=== PATIENT | female | born 1930 | race Caucasian/White ===

== ENCOUNTER 2016-06-18 10:10 | Emergency (ER) | payer MEDICARE, BC ==
[2016-06-18 10:30] VITALS: RESP 18
[2016-06-18] MEDS ORDERED: SODIUM CHLORIDE 0.9% 1,000 ML IV STA (10:31)
--- NOTE | 2016-06-18 10:33 | ED ---
General Adult HPI - General Chief complaint: Syncope Stated complaint: Syncope Time Seen by Provider: 06/18/16 10:20 Source: patient, RN notes reviewed Mode of arrival: EMS Limitations: no limitations - History of Present Illness Initial comments: This is an 86-year-old female who presents emergency department after having a syncopal episode. Patient was at the doctor's office this morning to get blood drawn so she was fasting. Patient states she normally eats breakfast at about 4 and but today she did not have breakfast. After the doctor's office and having some blood drawn and a flu shot she went shopping at [facility]. At [facility] ( feel dizzy since she stepped on a bench and then according to staff at [place] she passed out. According to staff she was unconscious for probably about 5 minutes. Patient states when she awoke she was asymptomatic she has no headache she denies any numbness weakness. Patient denies any chest pain palpitations difficulty breathing or shortness of breath per patient denies abdominal pain patient denies nausea vomiting diarrhea. Patient states she should just go home and had something to eat before she went shopping. - Related Data Home Medications Medication Instructions Recorded Confirmed Aspirin EC [Ecotrin Low Dose] 81 mg PO DAILY 11/26/13 06/18/16 Multivitamins, Thera [Multivitamin] 1 tab PO DAILY 11/26/13 06/18/16 ALPRAZolam [Xanax] 0.25 mg PO DAILY PRN 09/13/14 06/18/16 Isosorbide Mononitrate ER [Imdur] 30 mg PO DAILY 09/13/14 06/18/16 Losartan [Cozaar] 50 mg PO BID@1200,1900 09/13/14 06/18/16 Lovastatin [Mevacor] 10 mg PO QAM 09/13/14 06/18/16 Acetaminophen Tab [Tylenol Tab] 325 - 650 mg PO Q6H PRN 06/18/16 06/18/16 Clotrimazole Cream [Clotrim 1 applic TOPICAL DAILY 06/18/16 06/18/16 Antifungal Cream] Docusate [Colace] 100 mg PO DAILY 06/18/16 06/18/16 L.acidoph,Paracasei, B.lactis 1 cap PO DAILY 06/18/16 06/18/16 [Probiotic] Nitroglycerin Oint Tube [Nitro-Bid 1 inch TOPICAL DAILY PRN 06/18/16 06/18/16 Oint Tube] Nitroglycerin Sl Tabs [Nitrostat] 0.4 mg SUBLINGUAL Q5M PRN 06/18/16 06/18/16 [place]-3 Fatty Acids [[place]-3] 1,000 mg PO DAILY 06/18/16 06/18/16 Psyllium Husk [Psyllium] 1.2 gm PO QAM 06/18/16 06/18/16 Ubidecarenone [Co Q-10] 200 mg PO DAILY 06/18/16 06/18/16 Warfarin [Coumadin] 2.5 mg PO CIFUENTES 06/18/16 06/18/16 Warfarin [Coumadin] 5 mg PO [id number] 06/18/16 06/18/16 amLODIPine [Norvasc] 2.5 mg PO BID 06/18/16 06/18/16 Previous Rx's Medication Instructions Recorded Metoprolol Tartrate [Lopressor] 100 mg PO BID #20 tab 09/19/14 Sulfamethox-Tmp 800-160Mg [Bactrim 1 each PO Q12HR #14 tab 06/18/16 DS 800-160 mg] Allergies Allergy/AdvReac Type Severity Reaction Status Date / Time ciprofloxacin [From [facility]] Allergy Unknown Verified 06/18/16 10:34 amiodarone AdvReac VISION Verified 06/18/16 10:34 CHANGES nitroglycerin AdvReac Chest Pain Verified 06/18/16 10:29 Review of Systems ROS Statement: Those systems with pertinent positive or pertinent negative responses have been documented in the HPI. ROS Other: All systems not noted in ROS Statement are negative. Past Medical History Past Medical History: Atrial Fibrillation, Hypertension Additional Past Medical History / Comment(s): 09/13/14 Pt presented to [facility] ER with c/o heart rate fast. Pt states she has hx of LBBB and heart rate is normally in the 50's. She noted her B/P to be elevated as well. Other HX: tia,syncopy and fall 11/26/13 which pt states was due to low blood pressure, SVT , cataracts with surgery, diverticulitis, cystocele, rectocele, pt states "my aortic heart valve isn't sufficient and I have a left bundle branch block", R shoulder tendon tear, hyponatremia, elevated random blood sugar. History of Any Multi-Drug Resistant Organisms: None Reported Past Surgical History: Hysterectomy, Pacemaker, Tonsillectomy Additional Past Surgical History / Comment(s): colonoscopy, bilateral cataract removal with lens implants. Past Anesthesia/Blood Transfusion Reactions: No Reported Reaction Additional Past Anesthesia/Blood Transfusion Reaction / Comment(s): Pt has never recieved blood. Past Psychological History: No Psychological Hx Reported Additional Psychological History / Comment(s): Pt lives alone in a condo. She is independent. She performs her own ADLs and drives a car. She does not use any assisstive devices and no home care agencies come into the home. Smoking Status: Never smoker Past Alcohol Use History: None Reported Past Drug Use History: None Reported - Past Family History Father Family Medical History: Cancer Additional Family Medical History / Comment(s): Father at age 89yrs of prostate cancer that went to the bone. Mother Family Medical History: Hypertension Additional Family Medical History / Comment(s): Mother lived to be 84 yrs old. General Exam - General Exam Comments Initial Comments: GENERAL: Patient is well-developed and well-nourished. Patient is nontoxic and well- hydrated and is in no acute distress. ENT: Neck is soft and supple. No significant lymphadenopathy is noted. Oropharynx is clear. Moist mucous membranes. Neck has full range of motion without eliciting any pain. EYES: The sclera were anicteric and conjunctiva were pink and moist. Extraocular movements were intact and pupils were equal round and reactive to light. Eyelids were unremarkable. PULMONARY: Unlabored respirations. Good breath sounds bilaterally. No audible rales rhonchi or wheezing was noted. CARDIOVASCULAR: There is a regular rate and rhythm without any murmurs gallops or rubs. ABDOMEN: Soft and nontender with normal bowel sounds. No palpable organomegaly was noted. There is no palpable pulsatile mass. SKIN: Skin is clear with no lesions or rashes and otherwise unremarkable. NEUROLOGIC: Patient is alert and oriented x3. Cranial nerves II through XII are grossly intact. Motor and sensory are also intact. Normal speech, volume and content. Symmetrical smile. MUSCULOSKELETAL: Normal extremities with adequate strength and full range of motion. No lower extremity swelling or edema. No calf tenderness. LYMPHATICS: No significant lymphadenopathy is noted PSYCHIATRIC: Normal psychiatric evaluation. Limitations: no limitations Course Vital Signs 06/18/16 06/18/16 06/18/16 10:15 10:22 11:44 Pulse Rate 52 L Pulse Rate [ 49 L 59 L [employer] ] Respiratory 18 Rate Blood Pressure 167/89 Blood Pressure 200/88 [Right Arm] O2 Sat by Pulse 98 Oximetry 06/18/16 06/18/16 06/18/16 11:45 11:48 12:22 Pulse Rate 56 L 66 Pulse Rate [ 62 [employer] ] Respiratory 18 18 Rate Blood Pressure 191/92 159/80 Blood Pressure 186/101 [Right Arm] O2 Sat by Pulse 100 100 Oximetry Medical Decision Making - Medical Decision Making EKG shows paced rhythm at 50 bpm. It was 220 QRS is 144 QT interval 494 QTC is 450. Patient's EKG shows no ST segment elevation or depression or T-wave abdomen is noted. I went back into the patient's room and recommended the patient be admitted patient did not want to be admitted she stated she be fine at home and her son is with her. I recommended a second time and she insisted on going home. - Lab Data Result diagrams: 06/18/16 10:37 06/18/16 10:37 Lab Results 06/18/16 06/18/16 06/18/16 Range/Units 10:37 10:37 10:37 WBC 8.5 (3.8-10.6) k/uL RBC 4.20 (3.80-5.40) m/uL Hgb 13.6 (11.4-16.0) gm/dL Hct 41.6 (34.0-46.0) % MCV 99.1 (80.0-100.0) fL MCH 32.4 (25.0-35.0) pg MCHC 32.7 (31.0-37.0) g/dL RDW 12.5 (11.5-15.5) % Plt Count 313 (150-450) k/uL Neutrophils % 75 % Lymphocytes % 17 % Monocytes % 5 % Eosinophils % 2 % Basophils % 0 % Neutrophils # 6.3 (1.3-7.7) k/uL Lymphocytes # 1.4 (1.0-4.8) k/uL Monocytes # 0.4 (0-1.0) k/uL Eosinophils # 0.1 (0-0.7) k/uL Basophils # 0.0 (0-0.2) k/uL PT (9.0-12.0) sec INR (<1.1) APTT (22.0-30.0) sec Sodium 140 (137-145) mmol/L Potassium 4.4 (3.5-5.1) mmol/L Chloride 103 (98-107) mmol/L Carbon Dioxide 25 (22-30) mmol/L Anion Gap 12 mmol/L BUN 11 (7-17) mg/dL Creatinine 0.65 (0.52-1.04) mg/dL Est GFR (MDRD) Af Amer >60 (>60 ml/min/1.73 sqM) Est GFR (MDRD) Non-Af >60 (>60 ml/min/1.73 sqM) Glucose 117 H (74-99) mg/dL Calcium 8.7 (8.4-10.2) mg/dL Magnesium 2.0 (1.6-2.3) mg/dL Total Bilirubin 0.8 (0.2-1.3) mg/dL AST 22 (14-36) U/L ALT 38 (9-52) U/L Alkaline Phosphatase 77 (38-126) U/L Total Creatine Kinase 31 (30-135) U/L CK-MB (CK-2) 0.3 (0.0-2.4) ng/mL CK-MB (CK-2) Rel Index 1.0 Troponin I <0.012 (0.000-0.034) ng/mL Total Protein 6.7 (6.3-8.2) g/dL Albumin 3.7 (3.5-5.0) g/dL Urine Color Urine Appearance (Clear) Urine pH (5.0-8.0) Ur Specific [place] (1.001-1.035) Urine Protein (Negative) Urine Glucose (UA) (Negative) Urine Ketones (Negative) Urine Blood (Negative) Urine Nitrate (Negative) Urine Bilirubin (Negative) Urine Urobilinogen (<2.0) mg/dL Ur Leukocyte Esterase (Negative) Urine RBC (0-5) /hpf Urine WBC (0-5) /hpf Ur Squamous Epith Cells (0-4) /hpf Hyaline Casts (0-2) /lpf Urine Mucus (None) /hpf 01/03/17 01/03/17 Range/Units 10:37 11:45 WBC (3.8-10.6) k/uL RBC (3.80-5.40) m/uL Hgb (11.4-16.0) gm/dL Hct (34.0-46.0) % MCV (80.0-100.0) fL MCH (25.0-35.0) pg MCHC (31.0-37.0) g/dL RDW (11.5-15.5) % Plt Count (150-450) k/uL Neutrophils % % Lymphocytes % % Monocytes % % Eosinophils % % Basophils % % Neutrophils # (1.3-7.7) k/uL Lymphocytes # (1.0-4.8) k/uL Monocytes # (0-1.0) k/uL Eosinophils # (0-0.7) k/uL Basophils # (0-0.2) k/uL PT 22.5 H (9.0-12.0) sec INR 2.3 (<1.1) APTT 31.8 H (22.0-30.0) sec Sodium (137-145) mmol/L Potassium (3.5-5.1) mmol/L Chloride (98-107) mmol/L Carbon Dioxide (22-30) mmol/L Anion Gap mmol/L BUN (7-17) mg/dL Creatinine (0.52-1.04) mg/dL Est GFR (MDRD) Af Amer (>60 ml/min/1.73 sqM) Est GFR (MDRD) Non-Af (>60 ml/min/1.73 sqM) Glucose (74-99) mg/dL Calcium (8.4-10.2) mg/dL Magnesium (1.6-2.3) mg/dL Total Bilirubin (0.2-1.3) mg/dL AST (14-36) U/L ALT (9-52) U/L Alkaline Phosphatase (38-126) U/L Total Creatine Kinase (30-135) U/L CK-MB (CK-2) (0.0-2.4) ng/mL CK-MB (CK-2) Rel Index Troponin I (0.000-0.034) ng/mL Total Protein (6.3-8.2) g/dL Albumin (3.5-5.0) g/dL Urine Color Light Yellow Urine Appearance Clear (Clear) Urine pH 7.5 (5.0-8.0) Ur Specific [place] 1.006 (1.001-1.035) Urine Protein Negative (Negative) Urine Glucose (UA) Negative (Negative) Urine Ketones Negative (Negative) Urine Blood Negative (Negative) Urine Nitrate Negative (Negative) Urine Bilirubin Negative (Negative) Urine Urobilinogen <2.0 (<2.0) mg/dL Ur Leukocyte Esterase Large H (Negative) Urine RBC 3 (0-5) /hpf Urine WBC 12 H (0-5) /hpf Ur Squamous Epith Cells 1 (0-4) /hpf Hyaline Casts 4 H (0-2) /lpf Urine Mucus Rare H (None) /hpf Disposition Clinical Impression: Syncope, Urinary tract infection Disposition: HOME SELF-CARE Condition: Good Instructions: Urinary Tract Infection in Women (ED), Syncope (ED) Prescriptions: Sulfamethox-Tmp 800-160Mg [Bactrim DS 800-160 mg] 1 each PO Q12HR #14 tab Referrals: Mitchell Davalos MD [Primary Care Provider] - 1-2 days Time of Disposition: 12:52
[2016-06-18 11:07] LABS: Basophils % (A) 0 %; CH 32.5; CHCM 32.9; Eosinophils # (A) 0.1 k/uL (0-0.7); Eosinophils % (A) 2 %; HCT 41.6 % (34.0-46.0); HDW 2.25; HGB 13.6 gm/dL (11.4-16.0); Luc # (Auto) 0.13; Luc % (Auto) 2; Lymphocytes # (A) 1.4 k/uL (1.0-4.8); Lymphocytes % (A) 17 %; MCH 32.4 pg (25.0-35.0); MCHC 32.7 g/dL (31.0-37.0); MCV 99.1 fL (80.0-100.0); Mean Platelet Volume 6.3; Monocytes # (A) 0.4 k/uL (0-1.0); Monocytes % (A) 5 %; Neutrophils # (A) 6.3 k/uL (1.3-7.7); Neutrophils % (A) 75 %; RDW 12.5 % (11.5-15.5); WBC 8.5 k/uL (3.8-10.6); WBC (Perox) 8.86
[2016-06-18 11:11] LABS: INR 2.3 (<1.1); Partial Thromboplastin Time 31.8 sec (22.0-30.0); Prothrombin Time 22.5 sec (9.0-12.0)
[2016-06-18 11:16] LABS: ALT 38 U/L (9-52); AST 22 U/L (14-36); Alkaline Phosphatase 77 U/L (38-126); Anion Gap 12 mmol/L; Blood Urea Nitrogen 11 mg/dL (7-17); Calcium 8.7 mg/dL (8.4-10.2); Carbon Dioxide 25 mmol/L (22-30); Chloride 103 mmol/L (98-107); Glucose 117 mg/dL (74-99); Non-African American GFR(MDRD) >60 (>60 ml/min/1.73 sqM); Potassium 4.4 mmol/L (3.5-5.1); Sodium 140 mmol/L (137-145); Total Bilirubin 0.8 mg/dL (0.2-1.3); Total Protein 6.7 g/dL (6.3-8.2)
--- NOTE | 2016-06-18 11:23 | XR ---
EXAMINATION TYPE: XR chest 2V DATE OF EXAM: 06/18/2016 11:12 AM COMPARISON: 09/19/2014 HISTORY: Weakness FINDINGS: The lungs are clear and there is no pneumothorax, pleural effusion, or focal pneumonia. Degenerativ e change of the spine. Mild compression deformity lower thoracic spine is stable. Cardiac device and severe cardiomegaly noted. Correlate for COPD. Use osteopenia noted. Biapical pleural thickening noted. IMPRESSION: 1. No acute process.
[2016-06-18 11:41] LABS: Creatine Kinase 31 U/L (30-135)
[2016-06-18 11:54] LABS: Creatine Kinase MB 0.3 ng/mL (0.0-2.4); Troponin I <0.012 ng/mL (0.000-0.034)
[2016-06-18 12:18] LABS: Appearance,Urine Clear (Clear); Bilirubin,Urine Negative (Negative); Glucose,Urine (UA) Negative (Negative); Ketones,Urine Negative (Negative); Leukocyte Esterase,Urine Large (Negative); Mucus,Urine Rare /hpf; Nitrite,Urine Negative (Negative); PH, Urine 7.5 (5.0-8.0); Particle Count 1972; Protein,Urine Negative (Negative); RBC,Urine 3 /hpf (0-5); Specific Gravity,Urine 1.006 (1.001-1.035); Squamous Epithelial Cell,Urine 1 /hpf (0-4); UA Billing (MACRO vs. MICRO) MICRO; Urobilinogen,Urine <2.0 mg/dL (<2.0); WBC,Urine 12 /hpf (0-5)
[2016-06-18 12:23] VITALS: BP 159/80
[2016-06-18 13:26] VITALS: PULSE 57; TEMP 97.5
== END 2016-06-18 13:34 | disposition home or self-care (01) ==
LOC: EC 10:10
DX: R55 Syncope and collapse (principal); N39.0 Urinary tract infection, site not specified; Z79.82 Long term (current) use of aspirin; Z79.899 Other long term (current) drug therapy; Z79.01 Long term (current) use of anticoagulants; Z88.1 Allergy status to other antibiotic agents; Z88.8 Allergy status to other drugs, medicaments and biological substances; I10 Essential (primary) hypertension; I48.91 Unspecified atrial fibrillation; Z95.0 Presence of cardiac pacemaker
CPT/HCPCS: 96365; 96361 ×2; 99285; 36415; 93005; 80053; 82550; 82553; 83735; 84484; 85025; 85610; 85730; 81001; 87086; 71020; J0696

== ENCOUNTER 2016-09-24 20:16 | Emergency (ER) | payer MEDICARE, BC ==
--- NOTE | 2016-09-24 20:28 | ED ---
General Adult HPI - General Stated complaint: Hypertension Time Seen by Provider: 09/24/16 20:16 Source: patient, EMS, RN notes reviewed Mode of arrival: EMS - History of Present Illness Initial comments: This is a 86-year-old female who presents by EMS with complaints of elevated blood pressure today. She states she's been having back pain in her mid back and doesn't fact were a brace. She states she was told the back which healed by itself. She is on blood pressure medication she was taking her medications tonight and afterwards she still had elevated blood pressure 190/120 normally she states about 140/70 is where she likes it the last time she saw her applier was 180/100. She denies any fevers chills nausea vomiting sweats blurry vision difficulty breathing abdominal pain she does state however she had narrow caliber stool today. No dysuria hematuria. - Related Data Home Medications Medication Instructions Recorded Confirmed Aspirin EC [Ecotrin Low Dose] 81 mg PO DAILY 11/26/13 09/24/16 Multivitamins, Thera [Multivitamin 1 tab PO DAILY 11/26/13 09/24/16 (formulary)] ALPRAZolam [Xanax] 0.25 mg PO DAILY PRN 09/13/14 09/24/16 Isosorbide Mononitrate ER [Imdur] 30 mg PO DAILY 09/13/14 09/24/16 Losartan [Cozaar] 50 mg PO BID@1200,1900 09/13/14 09/24/16 Lovastatin [Mevacor] 10 mg PO QAM 09/13/14 09/24/16 Acetaminophen Tab [Tylenol Tab] 325 - 650 mg PO Q6H PRN 06/18/16 09/24/16 Clotrimazole Cream [Clotrim 1 applic TOPICAL DAILY 06/18/16 09/24/16 Antifungal Cream] Docusate [Colace] 100 mg PO DAILY 06/18/16 09/24/16 L.acidoph,Paracasei, B.lactis 1 cap PO DAILY 06/18/16 09/24/16 [Probiotic] Nitroglycerin Oint Tube [Nitro-Bid 1 inch TOPICAL DAILY PRN 06/18/16 09/24/16 Oint Tube] Nitroglycerin Sl Tabs [Nitrostat] 0.4 mg SUBLINGUAL Q5M PRN 06/18/16 09/24/16 [place]-3 Fatty Acids [[place]-3] 1,000 mg PO DAILY 06/18/16 09/24/16 Psyllium Husk [Psyllium] 1.2 gm PO QAM 06/18/16 09/24/16 Ubidecarenone [Co Q-10] 200 mg PO DAILY 06/18/16 09/24/16 Warfarin [Coumadin] 5 mg PO DAILY 06/18/16 09/24/16 amLODIPine [Norvasc] 2.5 mg PO BID 06/18/16 09/24/16 Previous Rx's Medication Instructions Recorded Metoprolol Tartrate [Lopressor] 100 mg PO BID #20 tab 09/19/14 Allergies Allergy/AdvReac Type Severity Reaction Status Date / Time ciprofloxacin [From [facility]] Allergy Unknown Verified 09/24/16 21:14 amiodarone AdvReac VISION Verified 09/24/16 21:14 CHANGES nitroglycerin AdvReac Chest Pain Verified 09/24/16 21:14 Review of Systems ROS Statement: Those systems with pertinent positive or pertinent negative responses have been documented in the HPI. ROS Other: All systems not noted in ROS Statement are negative. Past Medical History Past Medical History: Atrial Fibrillation, Hypertension Additional Past Medical History / Comment(s): 09/13/14 Pt presented to [facility] ER with c/o heart rate fast. Pt states she has hx of LBBB and heart rate is normally in the 50's. She noted her B/P to be elevated as well. Other HX: tia,syncopy and fall 11/26/13 which pt states was due to low blood pressure, SVT , cataracts with surgery, diverticulitis, cystocele, rectocele, pt states "my aortic heart valve isn't sufficient and I have a left bundle branch block", R shoulder tendon tear, hyponatremia, elevated random blood sugar. History of Any Multi-Drug Resistant Organisms: None Reported Past Surgical History: Hysterectomy, Pacemaker, Tonsillectomy Additional Past Surgical History / Comment(s): colonoscopy, bilateral cataract removal with lens implants. Past Anesthesia/Blood Transfusion Reactions: No Reported Reaction Additional Past Anesthesia/Blood Transfusion Reaction / Comment(s): Pt has never recieved blood. Past Psychological History: No Psychological Hx Reported Additional Psychological History / Comment(s): Pt lives alone in a condo. She is independent. She performs her own ADLs and drives a car. She does not use any assisstive devices and no home care agencies come into the home. Smoking Status: Never smoker Past Alcohol Use History: None Reported Past Drug Use History: None Reported - Past Family History Father Family Medical History: Cancer Additional Family Medical History / Comment(s): Father at age 89yrs of prostate cancer that went to the bone. Mother Family Medical History: Hypertension Additional Family Medical History / Comment(s): Mother lived to be 84 yrs old. General Exam - General Exam Comments Initial Comments: Is a well-developed well-nourished awake alert oriented 3 female Limitations: no limitations General appearance: alert, anxious Head exam: Present: atraumatic, normocephalic, normal inspection Eye exam: Present: normal appearance, PERRL, EOMI. Absent: scleral icterus, conjunctival injection, periorbital swelling ENT exam: Present: mucous membranes dry Neck exam: Present: normal inspection. Absent: tenderness, meningismus, lymphadenopathy Respiratory exam: Present: normal lung sounds bilaterally. Absent: respiratory distress, wheezes, rales, rhonchi, stridor Cardiovascular Exam: Present: regular rate, normal rhythm, normal heart sounds. Absent: systolic murmur, diastolic murmur, rubs, gallop, clicks GI/Abdominal exam: Present: soft, normal bowel sounds. Absent: distended, tenderness, guarding, rebound, rigid, bruit, pulsatile mass, hernia Rectal exam: Present: deferred Extremities exam: Present: normal inspection, full ROM, normal capillary refill. Absent: tenderness, pedal edema, joint swelling, calf tenderness Back exam: Present: other (The patient does demonstrate kyphosis and does have some tenderness palpation of the right paraspinous muscles to the lower thoracic upper lumbar region.) Neurological exam: Present: alert, oriented X3, CN II-XII intact Psychiatric exam: Present: normal affect, normal mood Skin exam: Present: warm, dry, intact, normal color. Absent: rash Course Vital Signs 09/24/16 09/24/16 20:23 21:26 Temperature 97.9 F Pulse Rate 68 61 Respiratory 16 18 Rate Blood Pressure 171/91 150/85 O2 Sat by Pulse 94 L 95 Oximetry EKG Findings - EKG Results: EKG: interpreted by ERMD, sinus rhythm (Sinus rhythm with a rate of 62. Interval 178 QRS duration 148 QT/QTC of 456/462 that exodeviation live bundle- branch block no acute ST-T wave changes) Medical Decision Making - Medical Decision Making The patient's blood pressure has normalized closer to her baseline. I did a long discussion with her regarding findings the workup does demonstrate some dehydration she is to follow-up with her doctor return when necessary increase oral fluids I did caution her to just take 1 time a day do her blood pressure check. - Lab Data Result diagrams: 09/24/16 20:35 09/24/16 20:35 Lab Results 09/24/16 09/24/16 09/24/16 Range/Units 20:35 20:35 20:35 WBC 10.9 H (3.8-10.6) k/uL RBC 4.16 (3.80-5.40) m/uL Hgb 13.5 (11.4-16.0) gm/dL Hct 40.4 (34.0-46.0) % MCV 97.1 (80.0-100.0) fL MCH 32.5 (25.0-35.0) pg MCHC 33.4 (31.0-37.0) g/dL RDW 13.1 (11.5-15.5) % Plt Count 308 (150-450) k/uL Neutrophils % 77 % Lymphocytes % 15 % Monocytes % 5 % Eosinophils % 1 % Basophils % 1 % Neutrophils # 8.4 H (1.3-7.7) k/uL Lymphocytes # 1.6 (1.0-4.8) k/uL Monocytes # 0.6 (0-1.0) k/uL Eosinophils # 0.1 (0-0.7) k/uL Basophils # 0.1 (0-0.2) k/uL Sodium 131 L (137-145) mmol/L Potassium 3.8 (3.5-5.1) mmol/L Chloride 97 L (98-107) mmol/L Carbon Dioxide 25 (22-30) mmol/L Anion Gap 9 mmol/L BUN 15 (7-17) mg/dL Creatinine 0.60 (0.52-1.04) mg/dL Est GFR (MDRD) Af Amer >60 (>60 ml/min/1.73 sqM) Est GFR (MDRD) Non-Af >60 (>60 ml/min/1.73 sqM) Glucose 114 H (74-99) mg/dL Calcium 9.0 (8.4-10.2) mg/dL Magnesium 2.1 (1.6-2.3) mg/dL Total Bilirubin 0.6 (0.2-1.3) mg/dL AST 25 (14-36) U/L ALT 29 (9-52) U/L Alkaline Phosphatase 91 (38-126) U/L Total Creatine Kinase 32 (30-135) U/L CK-MB (CK-2) 0.4 (0.0-2.4) ng/mL CK-MB (CK-2) Rel Index 1.3 Total Protein 6.8 (6.3-8.2) g/dL Albumin 3.7 (3.5-5.0) g/dL - Radiology Data Radiology results: report reviewed (Did review the imaging and report no acute findings.), image reviewed Disposition Clinical Impression: Hypertension, Dehydration, Chronic back pain Disposition: HOME SELF-CARE Condition: Good Instructions: Hypertension (ED), Dehydration (ED), Chronic Back Pain (ED)
[2016-09-24 20:29] VITALS: TEMP 97.9
[2016-09-24 20:56] LABS: Basophils # (A) 0.1 k/uL (0-0.2); Basophils % (A) 1 %; CH 32.6; CHCM 33.7; Eosinophils # (A) 0.1 k/uL (0-0.7); Eosinophils % (A) 1 %; HCT 40.4 % (34.0-46.0); HDW 2.15; HGB 13.5 gm/dL (11.4-16.0); Luc # (Auto) 0.18; Luc % (Auto) 2; Lymphocytes # (A) 1.6 k/uL (1.0-4.8); Lymphocytes % (A) 15 %; MCH 32.5 pg (25.0-35.0); MCHC 33.4 g/dL (31.0-37.0); MCV 97.1 fL (80.0-100.0); Mean Platelet Volume 6.6; Monocytes # (A) 0.6 k/uL (0-1.0); Monocytes % (A) 5 %; Neutrophils # (A) 8.4 k/uL (1.3-7.7); Neutrophils % (A) 77 %; RBC 4.16 m/uL (3.80-5.40); RDW 13.1 % (11.5-15.5); WBC 10.9 k/uL (3.8-10.6); WBC (Perox) 10.61
[2016-09-24 21:10] LABS: ALT 29 U/L (9-52); AST 25 U/L (14-36); Alkaline Phosphatase 91 U/L (38-126); Anion Gap 9 mmol/L; Blood Urea Nitrogen 15 mg/dL (7-17); Carbon Dioxide 25 mmol/L (22-30); Chloride 97 mmol/L (98-107); Glucose 114 mg/dL (74-99); Magnesium 2.1 mg/dL (1.6-2.3); Non-African American GFR(MDRD) >60 (>60 ml/min/1.73 sqM); Potassium 3.8 mmol/L (3.5-5.1); Sodium 131 mmol/L (137-145); Total Bilirubin 0.6 mg/dL (0.2-1.3); Total Protein 6.8 g/dL (6.3-8.2)
--- NOTE | 2016-09-24 21:15 | XR ---
EXAMINATION TYPE: XR chest 2V DATE OF EXAM: 09/24/2016 8:55 PM COMPARISON: June 18, 2016 HISTORY: Hypertension with atrial fibrillation and cough TECHNIQUE: Frontal and lateral views of the chest are obtained. FINDINGS: EKG leads and cardiac pacemaker noted. There is no focal air space opacity, pleural effusi on, or pneumothorax seen. The cardiac silhouette size is within normal limits. The osseous structu res are intact. IMPRESSION: No acute cardiopulmonary process.
[2016-09-24 21:26] VITALS: RESP 18
[2016-09-24 21:32] LABS: Creatine Kinase MB 0.4 ng/mL (0.0-2.4)
[2016-09-24 22:29] VITALS: BP 153/88; PULSE 63
== END 2016-09-24 22:18 | disposition home or self-care (01) ==
LOC: EC 20:16
DX: I10 Essential (primary) hypertension (principal); E86.0 Dehydration; M54.9 Dorsalgia, unspecified; G89.29 Other chronic pain; I48.91 Unspecified atrial fibrillation; Z79.82 Long term (current) use of aspirin; Z79.899 Other long term (current) drug therapy; Z79.01 Long term (current) use of anticoagulants; Z88.1 Allergy status to other antibiotic agents; Z88.8 Allergy status to other drugs, medicaments and biological substances
CPT/HCPCS: 36415; 71020; 80053; 82550; 82553; 83735; 85025; 93005; 99284

== ENCOUNTER → 2016-09-27 | Outpatient (CLI) | payer MEDICARE, BC ==
[2016-09-27 14:49] LABS: Basophils % (A) 0 %; CH 32.8; CHCM 32.5; Eosinophils # (A) 0.1 k/uL (0-0.7); Eosinophils % (A) 1 %; HCT 41.9 % (34.0-46.0); HDW 2.12; HGB 13.5 gm/dL (11.4-16.0); Luc # (Auto) 0.17; Luc % (Auto) 2; Lymphocytes # (A) 1.7 k/uL (1.0-4.8); Lymphocytes % (A) 20 %; MCH 32.7 pg (25.0-35.0); MCHC 32.3 g/dL (31.0-37.0); MCV 101.3 fL (80.0-100.0); Macrocytosis Slight; Mean Platelet Volume 6.9; Monocytes # (A) 0.5 k/uL (0-1.0); Monocytes % (A) 6 %; Neutrophils % (A) 70 %; RBC 4.14 m/uL (3.80-5.40); RDW 13.2 % (11.5-15.5); WBC 8.5 k/uL (3.8-10.6)
[2016-09-27 14:59] LABS: Anion Gap 11 mmol/L; Blood Urea Nitrogen 9 mg/dL (7-17); Calcium 9.3 mg/dL (8.4-10.2); Carbon Dioxide 25 mmol/L (22-30); Chloride 94 mmol/L (98-107); Glucose 131 mg/dL (74-99); Non-African American GFR(MDRD) >60 (>60 ml/min/1.73 sqM); Potassium 4.4 mmol/L (3.5-5.1); Sodium 130 mmol/L (137-145)
--- NOTE | 2016-09-27 14:59 | XR ---
EXAMINATION TYPE: XR thoracic spine 2V DATE OF EXAM ORDERED: 09/27/2016 2:53 PM HISTORY: M54.6 Pain in thoracic spine. COMPARISON: None. FINDINGS: The T9 vertebral body is wedged by approximately one third. The T11 vertebral body is wedg ed by approximately one half. Alignment remains normal. There is mild widening of the paraspinal stri pe on the left. The pedicles appear intact. The bones are generally osteopenic. IMPRESSION: FRAGILITY FRACTURES INVOLVING THE T9 AND T11 VERTEBRAL BODIES.
[2016-09-27 15:04] LABS: Appearance,Urine Clear (Clear); Bilirubin,Urine Negative (Negative); Glucose,Urine (UA) Negative (Negative); Ketones,Urine Trace (Negative); Leukocyte Esterase,Urine Moderate (Negative); Nitrite,Urine Negative (Negative); PH, Urine 6.5 (5.0-8.0); Particle Count 1396; Protein,Urine Negative (Negative); RBC,Urine 9 /hpf (0-5); Specific Gravity,Urine 1.006 (1.001-1.035); UA Billing (MACRO vs. MICRO) MICRO; Urobilinogen,Urine <2.0 mg/dL (<2.0); WBC,Urine 10 /hpf (0-5)
== END | disposition home or self-care (01) ==
LOC: LABWHC1 14:24
PROVIDERS: ATTEND Internal Medicine
DX: S22.079A Unspecified fracture of T9-T10 vertebra, initial encounter for closed fracture (principal); S22.089A Unspecified fracture of T11-T12 vertebra, initial encounter for closed fracture; I10 Essential (primary) hypertension; N39.0 Urinary tract infection, site not specified
CPT/HCPCS: 36415; 72070; 80048; 81001; 85025; 87086

== ENCOUNTER 2016-11-21 06:10 | Inpatient (IN) | payer MEDICARE, BC ==
--- NOTE | 2016-11-21 07:58 | ED ---
General Adult HPI - General Chief complaint: Syncope Stated complaint: Syncope Time Seen by Provider: 11/21/16 07:09 Source: patient, EMS, RN notes reviewed Mode of arrival: EMS Limitations: no limitations - History of Present Illness Initial comments: Patient is a pleasant 86-year-old female presenting to the emergency department after feeling near syncopal since 2 AM. Patient did have a syncopal episode last week. Patient did fall and strike her head. Patient believes she passed out before she struck her head. Patient has also been having some discomfort of her back since she passed out. Patient believes she hurt her back when she fell. Patient has discomfort only with movement. No discomfort at rest. Today when patient woke up at 2 AM to use the restroom she has felt lightheaded. Patient has nausea. Patient continues to feel near syncopal. No chest pain or dyspnea. Patient has history of known thoracic compression fracture she thinks 9 and 11. - Related Data Home Medications Medication Instructions Recorded Confirmed Aspirin EC [Ecotrin Low Dose] 81 mg PO DAILY 11/26/13 11/21/16 Multivitamins, Thera [Multivitamin 1 tab PO DAILY 11/26/13 11/21/16 (formulary)] ALPRAZolam [Xanax] 0.25 mg PO DAILY PRN 09/13/14 11/21/16 Isosorbide Mononitrate ER [Imdur] 30 mg PO DAILY 09/13/14 11/21/16 Losartan [Cozaar] 50 mg PO BID@1200,1900 09/13/14 11/21/16 Lovastatin [Mevacor] 10 mg PO HS 09/13/14 11/21/16 Acetaminophen Tab [Tylenol Tab] 325 - 650 mg PO Q6H PRN 06/18/16 11/21/16 Clotrimazole Cream [Clotrim 1 applic TOPICAL DAILY 06/18/16 11/21/16 Antifungal Cream] Docusate [Colace] 100 mg PO DAILY 06/18/16 11/21/16 L.acidoph,Paracasei, B.lactis 1 cap PO DAILY 06/18/16 11/21/16 [Probiotic] Nitroglycerin Oint Tube [Nitro-Bid 1 inch TOPICAL DAILY PRN 06/18/16 11/21/16 Oint Tube] Nitroglycerin Sl Tabs [Nitrostat] 0.4 mg SUBLINGUAL Q5M PRN 06/18/16 11/21/16 [place]-3 Fatty Acids [[place]-3] 1,000 mg PO DAILY 06/18/16 11/21/16 Psyllium Husk [Psyllium] 1.2 gm PO QAM 06/18/16 11/21/16 Ubidecarenone [Co Q-10] 200 mg PO DAILY 06/18/16 11/21/16 Warfarin [Coumadin] 5 mg PO MOTUWETHFRSA 06/18/16 11/21/16 amLODIPine [Norvasc] 2.5 mg PO BID 06/18/16 11/21/16 Magnesium Hydroxide [Milk of 2,400 mg PO DAILY 11/21/16 11/21/16 Magnesia] Warfarin [Coumadin] 2.5 mg PO CIFUENTES 11/21/16 11/21/16 Previous Rx's Medication Instructions Recorded Metoprolol Tartrate [Lopressor] 100 mg PO BID #20 tab 09/19/14 Allergies Allergy/AdvReac Type Severity Reaction Status Date / Time ciprofloxacin [From [facility]] Allergy Unknown Verified 11/21/16 07:59 amiodarone AdvReac VISION Verified 11/21/16 07:59 CHANGES nitroglycerin AdvReac Chest Pain Verified 11/21/16 07:59 Review of Systems ROS Statement: Those systems with pertinent positive or pertinent negative responses have been documented in the HPI. ROS Other: All systems not noted in ROS Statement are negative. Constitutional: Denies: fever Eyes: Denies: eye pain ENT: Denies: ear pain Respiratory: Denies: cough, dyspnea Cardiovascular: Denies: chest pain Endocrine: Reports: fatigue Gastrointestinal: Reports: nausea. Denies: abdominal pain Genitourinary: Denies: urgency Musculoskeletal: Reports: back pain Skin: Denies: rash Neurological: Denies: weakness, confusion Past Medical History Past Medical History: Atrial Fibrillation, Hypertension Additional Past Medical History / Comment(s): 09/13/14 Pt presented to [facility] ER with c/o heart rate fast. Pt states she has hx of LBBB and heart rate is normally in the 50's. She noted her B/P to be elevated as well. Other HX: tia,syncopy and fall 11/26/13 which pt states was due to low blood pressure, SVT , cataracts with surgery, diverticulitis, cystocele, rectocele, pt states "my aortic heart valve isn't sufficient and I have a left bundle branch block", R shoulder tendon tear, hyponatremia, elevated random blood sugar. History of Any Multi-Drug Resistant Organisms: None Reported Past Surgical History: Hysterectomy, Pacemaker, Tonsillectomy Additional Past Surgical History / Comment(s): colonoscopy, bilateral cataract removal with lens implants. Past Anesthesia/Blood Transfusion Reactions: No Reported Reaction Additional Past Anesthesia/Blood Transfusion Reaction / Comment(s): Pt has never recieved blood. Past Psychological History: No Psychological Hx Reported Additional Psychological History / Comment(s): Pt lives alone in a condo. She is independent. She performs her own ADLs and drives a car. She does not use any assisstive devices and no home care agencies come into the home. Smoking Status: Never smoker Past Alcohol Use History: None Reported Past Drug Use History: None Reported - Past Family History Father Family Medical History: Cancer Additional Family Medical History / Comment(s): Father at age 89yrs of prostate cancer that went to the bone. Mother Family Medical History: Hypertension Additional Family Medical History / Comment(s): Mother lived to be 84 yrs old. General Exam Limitations: no limitations General appearance: alert, in no apparent distress Head exam: Present: atraumatic Eye exam: Present: normal appearance, PERRL, EOMI. Absent: nystagmus ENT exam: Present: normal oropharynx Neck exam: Present: normal inspection Respiratory exam: Present: normal lung sounds bilaterally. Absent: chest wall tenderness Cardiovascular Exam: Present: regular rate, normal rhythm Expanded Peripheral pulses: 2+: Radial (R), Radial (L), Dorsalis Pedis (R), Dorsalis Pedis (L) GI/Abdominal exam: Present: soft. Absent: tenderness Extremities exam: Present: normal inspection, full ROM. Absent: pedal edema, calf tenderness Back exam: Present: tenderness (Minimal tenderness right parathoracic region T8 through T10. Minimal sacral tenderness.) Neurological exam: Present: alert, CN II-XII intact. Absent: motor sensory deficit Psychiatric exam: Present: normal affect, normal mood Skin exam: Present: normal color Course Vital Signs 11/21/16 11/21/16 11/21/16 06:12 08:16 09:47 Temperature 97.6 F Pulse Rate 75 87 62 Respiratory 16 18 18 Rate Blood Pressure 115/68 127/65 151/78 O2 Sat by Pulse 98 98 99 Oximetry 11/21/16 11/21/16 10:47 12:17 Temperature Pulse Rate 63 61 Respiratory 18 18 Rate Blood Pressure 132/64 149/70 O2 Sat by Pulse 98 99 Oximetry EKG Findings - EKG Comments: EKG Findings:: Normal sinus rhythm 6 he 7. VT 166. QRS 134. QT 426. QTc 450. Left axis. Left bundle branch block. No acute ST change. Medical Decision Making - Medical Decision Making Disposition was delayed by pending CT report. Report was dictated however unable to be visualized. Patient was reexamined and resting comfortably in bed. Patient was updated on results and plan. Case was discussed with Dr. dorman, who will admit for Dr. Saba. - Lab Data Result diagrams: 11/21/16 08:03 11/21/16 08:03 Lab Results 11/21/16 11/21/16 11/21/16 Range/Units 08:03 08:03 08:03 WBC 9.9 (3.8-10.6) k/uL RBC 4.36 (3.80-5.40) m/uL Hgb 14.1 (11.4-16.0) gm/dL Hct 42.7 (34.0-46.0) % MCV 97.9 (80.0-100.0) fL MCH 32.2 (25.0-35.0) pg MCHC 32.9 (31.0-37.0) g/dL RDW 13.0 (11.5-15.5) % Plt Count 366 (150-450) k/uL Neutrophils % 82 % Lymphocytes % 11 % Monocytes % 4 % Eosinophils % 1 % Basophils % 0 % Neutrophils # 8.1 H (1.3-7.7) k/uL Lymphocytes # 1.1 (1.0-4.8) k/uL Monocytes # 0.4 (0-1.0) k/uL Eosinophils # 0.1 (0-0.7) k/uL Basophils # 0.0 (0-0.2) k/uL PT (9.0-12.0) sec INR (<1.1) APTT (22.0-30.0) sec Sodium 137 (137-145) mmol/L Potassium 4.5 (3.5-5.1) mmol/L Chloride 102 (98-107) mmol/L Carbon Dioxide 24 (22-30) mmol/L Anion Gap 11 mmol/L BUN 12 (7-17) mg/dL Creatinine 0.59 (0.52-1.04) mg/dL Est GFR (MDRD) Af Amer >60 (>60 ml/min/1.73 sqM) Est GFR (MDRD) Non-Af >60 (>60 ml/min/1.73 sqM) Glucose 140 H (74-99) mg/dL Calcium 9.3 (8.4-10.2) mg/dL Magnesium 2.2 (1.6-2.3) mg/dL Total Bilirubin 1.0 (0.2-1.3) mg/dL AST 26 (14-36) U/L ALT 32 (9-52) U/L Alkaline Phosphatase 99 (38-126) U/L Total Creatine Kinase 21 L (30-135) U/L CK-MB (CK-2) 0.3 (0.0-2.4) ng/mL CK-MB (CK-2) Rel Index 1.4 Troponin I <0.012 (0.000-0.034) ng/mL Total Protein 7.3 (6.3-8.2) g/dL Albumin 3.9 (3.5-5.0) g/dL /01/30 Range/Units 08:03 WBC (3.8-10.6) k/uL RBC (3.80-5.40) m/uL Hgb (11.4-16.0) gm/dL Hct (34.0-46.0) % MCV (80.0-100.0) fL MCH (25.0-35.0) pg MCHC (31.0-37.0) g/dL RDW (11.5-15.5) % Plt Count (150-450) k/uL Neutrophils % % Lymphocytes % % Monocytes % % Eosinophils % % Basophils % % Neutrophils # (1.3-7.7) k/uL Lymphocytes # (1.0-4.8) k/uL Monocytes # (0-1.0) k/uL Eosinophils # (0-0.7) k/uL Basophils # (0-0.2) k/uL PT 29.0 H (9.0-12.0) sec INR 3.0 (<1.1) APTT 34.2 H (22.0-30.0) sec Sodium (137-145) mmol/L Potassium (3.5-5.1) mmol/L Chloride (98-107) mmol/L Carbon Dioxide (22-30) mmol/L Anion Gap mmol/L BUN (7-17) mg/dL Creatinine (0.52-1.04) mg/dL Est GFR (MDRD) Af Amer (>60 ml/min/1.73 sqM) Est GFR (MDRD) Non-Af (>60 ml/min/1.73 sqM) Glucose (74-99) mg/dL Calcium (8.4-10.2) mg/dL Magnesium (1.6-2.3) mg/dL Total Bilirubin (0.2-1.3) mg/dL AST (14-36) U/L ALT (9-52) U/L Alkaline Phosphatase (38-126) U/L Total Creatine Kinase (30-135) U/L CK-MB (CK-2) (0.0-2.4) ng/mL CK-MB (CK-2) Rel Index Troponin I (0.000-0.034) ng/mL Total Protein (6.3-8.2) g/dL Albumin (3.5-5.0) g/dL - Radiology Data Radiology results: report reviewed (Computed tomography scan the brain shows atrophy and chronic changes without acute abnormality.), image reviewed ( Thoracic x-ray shows possible increase of T9 compression. Sacral x-ray is limited without acute fracture. Chest x-ray shows no acute process.) Disposition Clinical Impression: Syncope Disposition: ADMITTED IP TO [facility] Referrals: Mitchell Davalos MD [Primary Care Provider] - 1-2 days
[2016-11-21 08:17] LABS: Basophils % (A) 0 %; CH 32.8; CHCM 33.6; Eosinophils # (A) 0.1 k/uL (0-0.7); Eosinophils % (A) 1 %; HCT 42.7 % (34.0-46.0); HDW 2.23; HGB 14.1 gm/dL (11.4-16.0); Luc # (Auto) 0.14; Luc % (Auto) 1; Lymphocytes # (A) 1.1 k/uL (1.0-4.8); Lymphocytes % (A) 11 %; MCH 32.2 pg (25.0-35.0); MCHC 32.9 g/dL (31.0-37.0); MCV 97.9 fL (80.0-100.0); Mean Platelet Volume 6.8; Monocytes # (A) 0.4 k/uL (0-1.0); Monocytes % (A) 4 %; Neutrophils # (A) 8.1 k/uL (1.3-7.7); Neutrophils % (A) 82 %; RBC 4.36 m/uL (3.80-5.40); WBC 9.9 k/uL (3.8-10.6); WBC (Perox) 10.43
[2016-11-21 08:30] LABS: ALT 32 U/L (9-52); AST 26 U/L (14-36); Alkaline Phosphatase 99 U/L (38-126); Anion Gap 11 mmol/L; Blood Urea Nitrogen 12 mg/dL (7-17); Calcium 9.3 mg/dL (8.4-10.2); Carbon Dioxide 24 mmol/L (22-30); Chloride 102 mmol/L (98-107); Glucose 140 mg/dL (74-99); Magnesium 2.2 mg/dL (1.6-2.3); Non-African American GFR(MDRD) >60 (>60 ml/min/1.73 sqM); Partial Thromboplastin Time 34.2 sec (22.0-30.0); Potassium 4.5 mmol/L (3.5-5.1); Sodium 137 mmol/L (137-145); Total Protein 7.3 g/dL (6.3-8.2)
[2016-11-21 08:36] VITALS: RESP 18
[2016-11-21 08:38] LABS: Creatine Kinase 21 U/L (30-135)
[2016-11-21 08:51] LABS: Creatine Kinase MB 0.3 ng/mL (0.0-2.4); Troponin I <0.012 ng/mL (0.000-0.034)
--- NOTE | 2016-11-21 09:44 | XR ---
EXAMINATION TYPE: XR chest 2V DATE OF EXAM: 11/21/2016 COMPARISON: Prior chest x-ray 09/24/2016 HISTORY: Syncope TECHNIQUE: Frontal and lateral views of the chest are obtained. FINDINGS: There is no focal air space opacity, pleural effusion, or pneumothorax seen. The cardiac silhouette size is stable, the heart is enlarged.. Pacemaker leads are stable. Prominent lung volumes may be indicative of COPD. Osteoporotic compression deformities suspected within the thoracic spine may have progressed. The aorta is dense. The osseous structures are demineralized. IMPRESSION: No acute cardiopulmonary process.
--- NOTE | 2016-11-21 09:46 | XR ---
Thoracic spine HISTORY: Pain 2 views of the thoracic spine on 3 images correlated to prior exam 2017 Midthoracic compression deformity is thought to progressed in the interval, there is loss of height o f approximately 50% anteriorly thought to represent T9. No definite retropulsion. Additional compress ion deformity thought to be stable at T11. Bone mineralization is reduced. There is a spinal curvatur e. IMPRESSION: Bone scan may be of benefit to assess for acuity of the above findings.
--- NOTE | 2016-11-21 09:48 | XR ---
Sacrum and coccyx HISTORY: Pain 3 views of the sacrum and coccyx No priors Mineralization is reduced. This may limit sensitivity. No acute fracture is evident. Facet arthropath y changes are present. There are dense vascular calcifications. 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 IMPRESSION: Low bone mineralization may limit the exam. No acute fracture or subluxation is evident. Consider alternate imaging as indicated for increased sensitivity.
--- NOTE | 2016-11-21 11:45 | CT ---
EXAMINATION TYPE: CT brain wo con DATE OF EXAM: 11/21/2016 COMPARISON: 09/19/2014 HISTORY: 86-year-old female with syncope TECHNIQUE: Examination was done in axial plane without intravenous contrast. Coronal and sagittal r econstructions performed. CT DLP: 995.50 mGycm Automated exposure control for dose reduction was used. FINDINGS: Some motion artifacts towards the skull base. There is no evidence of acute intracranial hemorrhage, acute ischemic changes, mass, mass-effect, or extra-axial fluid collection. There is no effacement of cerebral sulci or basal subarachnoid cisterns. There is no hydrocephalus. There is no midline sh ift. Luke-white matter distinction is preserved. Progressive moderate supratentorial volume loss as compared to prior exam with continued moderate con fluent white matter hypodensities in both cerebral hemispheres. Paranasal sinuses and mastoid air cells appear well pneumatized. Orbits and globes are intact. IMPRESSION: No acute intracranial abnormality seen. Progressive moderate cerebral atrophy as compared to 2015 wit h similar confluent changes of chronic small vessel ischemic disease.
[2016-11-21] MEDS ORDERED: NALOXONE 0.4 MG/ML 1 ML VIAL IV PRN (13:03)
[2016-11-21] MEDS ORDERED: SODIUM CHLORIDE 0.9% 1,000 ML IV SCH (13:15)
[2016-11-21 15:56] LABS: Creatine Kinase <20 U/L (30-135)
[2016-11-21 16:09] LABS: Creatine Kinase MB 0.3 ng/mL (0.0-2.4); Troponin I <0.012 ng/mL (0.000-0.034)
[2016-11-21] MEDS ORDERED: ALPRAZolam 0.25 MG TAB PO PRN (16:20)
[2016-11-21] MEDS ORDERED: ACETAMINOPHEN TAB 325 MG TAB PO PRN (16:20)
[2016-11-21] MEDS: amLODIPine 2.5 MG TAB PO SCH ×2 (17:17→20:19)
[2016-11-21] MEDS: LOSARTAN 50 MG TAB PO SCH (17:17)
[2016-11-21] MEDS: DOCUSATE 100 MG CAP PO SCH (17:17)
--- NOTE | 2016-11-21 17:36 | US ---
EXAMINATION TYPE: US carotid duplex BILAT DATE OF EXAM: 11/21/2016 COMPARISON: US carotid Doppler 11/28/2013 CLINICAL HISTORY: syncope. Syncope EXAM MEASUREMENTS: RIGHT: Peak Systolic Velocity (PSV) cm/sec ----- Right CCA: 39.8 ----- Right ICA: 81.2 ----- Right ECA: 58.6 ICA/CCA ratio: 2.0 RIGHT: End Diastole cm/sec ----- Right CCA: 10.1 ----- Right ICA: 28.1 ----- Right ECA: 8.5 LEFT: Peak Systolic Velocity (PSV) cm/sec ----- Left CCA: 45.0 ----- Left ICA: 74.4 ----- Left ECA: 62.2 ICA/CCA ratio: 1.7 LEFT: End Diastole cm/sec ----- Left CCA: 12.7 ----- Left ICA: 23.6 ----- Left ECA: 8.7 VERTEBRALS (direction of flow): Right Vertebral: Antegrade Left Vertebral: Antegrade No elevated velocities, right ICA/CCA ratio of 2.0 IMPRESSION: No hemodynamic significant stenosis of the proximal internal carotid arteries bilaterall y by Doppler criteria, and indirect measurement of carotid stenosis. Elevated ICA to CCA ratio on t he right, carotid CTA could be performed for additional evaluation.
[2016-11-21] MEDS ORDERED: WARFARIN 5 MG TAB PO SCH (18:00)
[2016-11-21] MEDS: MAGNESIUM HYDROXIDE 2,400 MG/10 ML CUP PO SCH (18:54)
[2016-11-21] MEDS: PSYLLIUM HUSK 100% 6 GM PACKET PO SCH (18:54)
[2016-11-21] MEDS: METOPROLOL TARTRATE 50 MG TAB PO SCH (20:19)
[2016-11-21] MEDS ORDERED: ATORVASTATIN 10 MG TAB PO SCH (21:00)
[2016-11-21 22:43] LABS: Creatine Kinase <20 U/L (30-135)
[2016-11-21 22:52] LABS: Creatine Kinase MB 0.3 ng/mL (0.0-2.4); Troponin I <0.012 ng/mL (0.000-0.034)
--- NOTE | 2016-11-21 22:54 | P.CNNES ---
History of Present Illness Consult date: 11/21/16 Requesting physician: Eleno Clarke Reason for Consult: syncope Chief complaint: Syncope History of Present Illness: Neurology was requested to consult an 86-year-old female for syncopal episode. Patient did have a near syncopal episode at approximately 2 AM. She also had another occurrencere within the last couple weeks. Patient did fall and strike her head. She believes she passed out before she struck her head. Patient also indicates she had some back pain. Patient believes that she her back when she fell. Pain is with movement only. Imaging notes a possible compression fracture in the T9-11 area. Patient does have a history of atrial fibrillation. Patient does have a pacemaker and was experiencing increased heart rate of greater than 100 and blood pressure greater than 200. She states that this is identical to her prior episodes of syncope within the last month. She is being followed by primary care physician as well as cardiology. She last saw her customer relations advisor approximately 1 month ago. She is due to follow up for pacemaker check within the next month. CT brain noted no acute process, moderate cerebral atrophy and chronic small vessel ischemic disease. Carotid Doppler noted no hemodynamically significant stenosis of the proximal internal carotid arteries bilaterally by Doppler criteria and indirect measurement of the carotid stenosis. Elevated ICA to CCA ratio on the right, carotid CTA could be performed for additional evaluation. At contact, the patient was supine in bed, resting alert and oriented 3 and in no acute distress. 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 History of Any Multi-Drug Resistant Organisms: None Reported Past Surgical History: Hysterectomy, Pacemaker, Tonsillectomy Additional Past Surgical History / Comment(s): colonoscopy, bilateral cataract removal with lens implants. Past Anesthesia/Blood Transfusion Reactions: No Reported Reaction Additional Past Anesthesia/Blood Transfusion Reaction / Comment(s): Pt has never recieved blood. Type of Cardiac Device: Permanent Pacemaker Device Placement Date:: 09/15/14 Past Psychological History: No Psychological Hx Reported Additional Psychological History / Comment(s): Pt lives alone in a condo. She is independent. She performs her own ADLs and drives a car. She does not use any assisstive devices and no home care agencies come into the home. Smoking Status: Never smoker Past Alcohol Use History: None Reported Past Drug Use History: None Reported - Past Family History Father Family Medical History: Cancer Additional Family Medical History / Comment(s): Father at age 89yrs of prostate cancer that went to the bone. Mother Family Medical History: Hypertension Additional Family Medical History / Comment(s): Mother lived to be 84 yrs old. Medications and Allergies Home Medications Medication Instructions Recorded Confirmed Type Aspirin EC [Ecotrin Low Dose] 81 mg PO DAILY 11/26/13 11/21/16 History Multivitamins, Thera [Multivitamin 1 tab PO DAILY 11/26/13 11/21/16 History (formulary)] ALPRAZolam [Xanax] 0.25 mg PO DAILY PRN 09/13/14 11/21/16 History Isosorbide Mononitrate ER [Imdur] 30 mg PO DAILY 09/13/14 11/21/16 History Losartan [Cozaar] 50 mg PO BID@1200,1900 09/13/14 11/21/16 History Lovastatin [Mevacor] 10 mg PO HS 09/13/14 11/21/16 History Acetaminophen Tab [Tylenol Tab] 325 - 650 mg PO Q6H PRN 06/18/16 11/21/16 History Clotrimazole Cream [Clotrim 1 applic TOPICAL DAILY 06/18/16 11/21/16 History Antifungal Cream] Docusate [Colace] 100 mg PO DAILY 06/18/16 11/21/16 History L.acidoph,Paracasei, B.lactis 1 cap PO DAILY 06/18/16 11/21/16 History [Probiotic] Nitroglycerin Oint Tube [Nitro-Bid 1 inch TOPICAL DAILY PRN 06/18/16 11/21/16 History Oint Tube] Nitroglycerin Sl Tabs [Nitrostat] 0.4 mg SUBLINGUAL Q5M PRN 06/18/16 11/21/16 History [place]-3 Fatty Acids [[place]-3] 1,000 mg PO DAILY 06/18/16 11/21/16 History Psyllium Husk [Psyllium] 1.2 gm PO QAM 06/18/16 11/21/16 History Ubidecarenone [Co Q-10] 200 mg PO DAILY 06/18/16 11/21/16 History Warfarin [Coumadin] 5 mg PO MOTUWETHFRSA 06/18/16 11/21/16 History amLODIPine [Norvasc] 2.5 mg PO TID 06/18/16 11/21/16 History Magnesium Hydroxide [Milk of 2,400 mg PO DAILY 11/21/16 11/21/16 History Magnesia] Warfarin [Coumadin] 2.5 mg PO CIFUENTES 11/21/16 11/21/16 History Allergies Allergy/AdvReac Type Severity Reaction Status Date / Time ciprofloxacin [From [facility]] Allergy Unknown Verified 11/21/16 07:59 amiodarone AdvReac VISION Verified 11/21/16 07:59 CHANGES Physical Examination - Vital Signs Vital Signs: Vital Signs Temp Pulse Pulse Resp BP BP BP 11/21/16 20:00 97.6 F 71 18 146/83 135/83 11/21/16 16:00 74 11/21/16 14:20 97.0 F L 75 11/21/16 13:48 97.6 F 64 18 154/74 11/21/16 12:17 61 18 149/70 11/21/16 10:47 63 18 132/64 11/21/16 09:47 62 18 151/78 11/21/16 08:16 87 18 127/65 11/21/16 06:12 97.6 F 75 16 115/68 BP BP Pulse Ox 11/21/16 20:00 102/59 95 11/21/16 16:00 179/84 93 L 11/21/16 14:20 150/85 96 11/21/16 13:48 100 11/21/16 12:17 99 11/21/16 10:47 98 11/21/16 09:47 99 11/21/16 08:16 98 11/21/16 06:12 98 Intake and Output 11/21/16 11/21/16 11/21/16 06:59 14:59 22:59 Intake Total 0 120 Balance 0 120 Intake: Intake, IV Titration 0 Amount Sodium Chloride 0.9% 1, 0 000 ml @ 20 mls/hr IV . Q24H KASHIF Rx#:[id number] Oral 120 Other: Voiding Method Toilet # Voids 0 Weight 58.06 kg Constitutional: AOx3, cooperative HEENT: NC/AT, no facial asymmetry is seen. Throat: Supple, no masses Respiratory: No increased work of breathing Cardiac: Regular rate and Rhythm GI: non tender, non distended Musculoskeletal: Ranch Supervisor strengths are equal bilaterally 5/5, Lower extremity strengths are equal bilaterally at 5/5. Neurological: CN II-XII in tact, patient was AOx3, speech and language are normal, no unilateralizing weakness, no seizure activity note on physical exam. Sensation was normal. Patient was known to have left eye ocular muscle weakness. Patient states this is old and has been evaluated and followed since she was a child. Integementary: no rash, no erythema Psychiatric: mood and affect appropriate Results As noted in HPI. - Laboratory Findings CBC and BMP: 11/21/16 08:03 11/21/16 08:03 Abnormal Lab Findings: Abnormal Labs 11/21/16 11/21/16 11/21/16 08:03 08:03 08:03 Neutrophils # 8.1 H PT APTT Glucose 140 H Total Creatine Kinase 21 L 11/21/16 11/21/16 08:03 15:04 Neutrophils # PT 29.0 H APTT 34.2 H Glucose Total Creatine Kinase <20 L Assessment and Plan (1) Syncope Status: Acute Plan: 1. Syncope Patient does appear to be experiencing syncope. At this time it does appear that the patient's underlying etiology is most likely due to her atrial fibrillation and possible pacemaker interrogation. However, we will need to rule out other underlying neurological causes. Diagnostic workup to include; EEG, telemetry monitoring, neuro checks every shift. Cardiology consult recommended. CT of the brain noted no acute intracranial process, moderate cerebral atrophy and chronic small vessel ischemic disease. Neurology will continue to follow provide further updates as needed or warranted. Please refer to contact our office with any further questions.
[2016-11-22 08:37] LABS: Appearance,Urine Clear (Clear); Bacteria,Urine Rare /hpf; Bilirubin,Urine Negative (Negative); Glucose,Urine (UA) Negative (Negative); Ketones,Urine 1+ (Negative); Leukocyte Esterase,Urine Large (Negative); Mucus,Urine Few /hpf; Nitrite,Urine Negative (Negative); Particle Count 5232; Protein,Urine Trace (Negative); RBC,Urine 7 /hpf (0-5); Specific Gravity,Urine 1.018 (1.001-1.035); Squamous Epithelial Cell,Urine 1 /hpf (0-4); UA Billing (MACRO vs. MICRO) MICRO; Urobilinogen,Urine <2.0 mg/dL (<2.0); WBC,Urine 21 /hpf (0-5)
[2016-11-22] MEDS: METOPROLOL TARTRATE 50 MG TAB PO SCH (08:46)
[2016-11-22] MEDS: DOCUSATE 100 MG CAP PO SCH (08:47)
[2016-11-22] MEDS: amLODIPine 2.5 MG TAB PO SCH ×2 (08:47→16:13)
[2016-11-22] MEDS: MAGNESIUM HYDROXIDE 2,400 MG/10 ML CUP PO SCH (08:47)
[2016-11-22] MEDS ORDERED: ISOSORBIDE MONONITRATE ER 30 MG TAB.ER.24H PO SCH (09:00)
[2016-11-22] MEDS ORDERED: ASPIRIN 81 MG CHEW PO SCH (09:00)
[2016-11-22] MEDS ORDERED: LACTOBACILLUS ACIDOPH & BULGAR 1 EACH PACKET PO SCH (09:00)
[2016-11-22] MEDS: PSYLLIUM HUSK 100% 6 GM PACKET PO SCH (09:00)
[2016-11-22] MEDS ORDERED: NON-FORMULARY DRUG (Omega-3 Fatty Acids [Omega-3] 1,000 MG) PO SCH (09:00)
[2016-11-22] MEDS ORDERED: NON-FORMULARY DRUG (Ubidecarenone [Co Q-10] 200 MG) PO SCH (09:00)
[2016-11-22] MEDS ORDERED: CLOTRIMAZOLE 1% CREAM 15 GM TUBE TOPICAL SCH (09:00)
[2016-11-22 11:50] VITALS: BP 136/65; PULSE 72; TEMP 96.3
[2016-11-22] MEDS ORDERED: MULTIVITAMINS, THERA 1 EACH TAB PO SCH (12:00)
--- NOTE | 2016-11-22 12:04 | CONS ---
DATE OF CONSULTATION: CHIEF COMPLAINT: Syncope. This is an 86-year-old lady with history of chronic atrial fibrillation, sick sinus syndrome, status post permanent pacemaker, hypertension, dyslipidemia who presented to the hospital having had an episode of near syncope. Two weeks ago patient actually had a syncopal event while she was at [facility], declined hospitalization and went home. She did okay for a week. She has 2 sons who take care of her, but lives independently on her own. She again felt as if she was going to pass out and this time she was brought in. Since admission she has done well and has not had any chest pain, difficulty in breathing or palpitations. An EKG on her shows sinus rhythm with left bundle branch block. She has a pacemaker that was apparently checked in July of this year. She has had 3 sets of troponins that are negative and hemoglobin is normal at 14.1. Current medications include Norvasc 2.5 t.i.d., Coumadin, sublingual nitroglycerin on p.r.n. basis, Lopressor 100 b.i.d., Mevacor, Cozaar, Imdur, aspirin and Xanax. ALLERGIES: Allergic to AMIODARONE and CIPRO. Family history is negative for premature coronary artery disease. Social history is negative for current smoking, EtOH abuse or drug abuse. REVIEW OF SYSTEMS: HEENT: Unremarkable. CARDIAC: As described above. RESPIRATORY: Negative. GI: Negative. GENITOURINARY: Negative. ALLERGY/IMMUNOLOGY: Negative. SKIN: Negative. MUSCULOSKELETAL: Significant for arthritis. PSYCHOSOCIAL: She seems confused at times. There are 2 sons who are caring for her. HEMATOLOGICAL: Negative. ONCOLOGICAL: Negative. The rest of the system review is not relevant. On exam, patient is comfortable at rest. Afebrile. Vital signs are stable. There is no jugular venous distention. Carotid upstroke is normal. There is no bruit. Chest exam reveals good air entry bilaterally. Heart exam reveals first and second heart sounds. No gallop. She has a systolic murmur at the apex. No rub. Abdomen is soft, nontender. Exam of the extremities did not reveal any edema. Peripheral pulses are felt. Labs show a hemoglobin of 14.1. Platelet count is 366. INR is 3. Potassium is 4.5. Creatinine is 0.59. Three sets of tropes are negative. ASSESSMENT: 1. Syncope probably vasovagal in origin. However, we cannot rule out episodes of atrial fibrillation with rapid ventricular response. 2. Sick sinus syndrome, status post permanent pacemaker placement. 3. Mild confusion. 4. Hypertension. PLAN: We will interrogate the pacemaker today. OR is ruled out. Will obtain a 2-D echo. Watch her on the monitor and decide on further course of action based on her test results.
[2016-11-22] MEDS: LOSARTAN 50 MG TAB PO SCH (12:07)
--- NOTE | 2016-11-22 12:32 | HP ---
DATE OF ADMISSION: 11/21/2016 PRESENTING COMPLAINT: Passed out. HISTORY OF PRESENTING COMPLAINT: This is a pleasant 86-year-old patient of Dr. Davalos who has an extensive medical history. The patient has a known history atrial fibrillation and tachybrady syndrome. Patient has a pacemaker that has actually controlled the low heart rate, unable to control when the rate goes up. Normally controlled by medications. She follows with Dr. Avilez out of the area. On 11/12/2016 she was at [facility], she felt her heart racing and she fell backwards, bumping her head on the floor. Today this morning at 2 in the morning she sat up, didn't feel right, took her blood pressure, it was 200/100 and heart rate was close to 100. The patient then had an episode of passing out again. The patient also was sweating. Hence, the patient was admitted. No seizure-like activity. No incontinence, no tongue biting. The episode was rather short-lived. REVIEW OF SYSTEMS: CONSTITUTIONAL: Tired. HEENT: None. RESPIRATORY: None. CARDIOVASCULAR: As above. GASTROINTESTINAL: None. GENITOURINARY: None. MUSCULOSKELETAL: Some pain in the joints. DERMATOLOGIC: None. HEMATOLOGIC: None. LYMPHATICS: None. PSYCHIATRY: None. NEUROLOGICAL: As above. No focal symptoms otherwise. PAST MEDICAL HISTORY: Atrial fibrillation, hypertension, tachybrady syndrome with a pacemaker, diverticulitis, cystocele/rectocele, left bundle branch block. PAST SURGICAL HISTORY: Syncope, pacemaker, tonsillectomy, bilateral cataracts, permanent pacemaker. SOCIAL HISTORY: Lives alone in a condo. No smoking or alcohol. FAMILY HISTORY: Father had prostate cancer, metastatic. HOME MEDICATIONS: 1. Norvasc 2.5 mg p.o. t.i.d. 2. Coumadin 2.5 on Friday and 5 mg Friday, Friday, Friday, , Friday, Friday. 3. Nitrostat 0.4. sublingual every 5 p.r.n. 4. Nitro-Bid ointment 1 inch topical daily p.r.n. 5. Lopressor 100 mg b.i.d. 6. CoQ10, 200 mg p.o. daily. 7. Cilium 1.2 grams p.o. daily. 8. [place] 3000 mg p.o. daily. 9. Multivitamins 1 tablet p.o. daily. 10. Milk of magnesia 25 mg p.o. daily. 11. Mevacor 10 mg p.o. at bedtime. 12. Cozaar 50 mg p.o. b.i.d. 13. Probiotic 1 capsule p.o. daily. 14. Imdur ER 30 mg p.o. daily. 15. Colace 100 mg p.o. daily. 16. Chlortrimazole one application topical daily. 17. Aspirin 81 mg p.o. daily. 18. Tylenol 325 p.o. every 6 p.r.n. 19. Xanax 0.25 p.r.n. ALLERGIES: CIPRO, AMIODARONE. On examination, temperature 97.6, pulse 71, respirations 18, blood pressure 146/83, pulse ox 95% on room air. GENERAL APPEARANCE: Elderly lady in bed comfortable. EYES: Pupils equal. Conjunctivae normal. HEENT: Oral cavity normal. NECK: JVD not raised. Mass not palpable. RESPIRATORY: Effort normal. LUNGS: Clear. CARDIOVASCULAR: First and second sounds normal. No edema. ABDOMEN: Soft, nontender. Liver and spleen not palpable. LYMPHATIC: No lymph node palpable in neck or axillae. PSYCHIATRY: Alert and oriented x3. Mood is normal. NEUROLOGICAL: Pupils equal. Cranial nerves grossly intact. Power and sensation grossly intact. INVESTIGATIONS: White count 9.9, hemoglobin 14.1, INR is 3, potassium 4.5, troponin less than 0.012. EKG, left bundle branch block. ASSESSMENT: 1. Recurrent episodes of syncope in a patient who has tachybrady syndrome. Does have a pacemaker that has not controlled his lower heart rate. The higher rates are supposed to be controlled by medication, with probably escape episodes. 2. Essential hypertension. 3. Cystocele/rectocele. 4. Left bundle branch block. 5. Chronic Coumadin monitoring. PLAN: Care was discussed with the patient. The whole thing appears to be more of a cardiac phenomenon. Cardiology and electrophysiology are consulted. Care was discussed with the patient.
--- NOTE | 2016-11-22 13:34 | ECHOF ---
Referral Reason:syncope MEASUREMENTS -------- HEIGHT: 160.0 cm WEIGHT: 58.1 kg BP: 140/70 RVIDd: 2.1 cm (< 3.3) IVSd: 1.1 cm (0.6 - 1.1) LVIDd: 4.6 cm (3.9 - 5.3) LVPWd: 1.1 cm (0.6 - 1.1) IVSs: 1.4 cm LVIDs: 3.4 cm LVPWs: 1.4 cm LAESV Index (A-L): 33.63 ml/m Ao Diam: 2.7 cm (2.0 - 3.7) AV Cusp: 2.0 cm (1.5 - 2.6) LA Diam: 3.8 cm (2.7 - 3.8) MV EXCURSION: 16.399 mm (> 18.000) MV EF SLOPE: 49 mm/s (70 - 150) EPSS: 0.6 cm MV E Jason: 0.94 m/s MV DecT: 233 ms MV A Jason: 0.82 m/s MV E/A Ratio: 1.15 AR PHT: 567 ms RAP: 5.00 mmHg RVSP: 38.37 mmHg FINDINGS -------- Sinus rhythm. This was a technically good study. Overall left ventricular systolic function is mildly impaired with, an EF between 45 - 50 %. The right ventricle is normal in size and function. LA is midly dilated 29-33ml/m2. The right atrium is normal in size. Aortic valve is trileaflet and is mildly thickened. There is [id number] aortic regurgitation. The aortic pressure half-time by doppler is 567ms. There is no evidence of aortic stenosis. The mitral valve leaflets are mildly thickened. Mild mitral annular calcification present. There is trace to mild mitral regurgitation. Mild tricuspid regurgitation present. There is mild pulmonary hypertension. The right ventricular systolic pressure, as measured by Doppler, is 38.37mmHg. The pulmonic valve was not well visualized. The aortic root size is normal. IVC Not well visulized. The pericardium is normal. There is no pericardial effusion. CONCLUSIONS -------- 1. Sinus rhythm. 2. There is trace to mild mitral regurgitation. 3. Mild tricuspid regurgitation present. 4. There is mild pulmonary hypertension. 5. The right ventricular systolic pressure, as measured by Doppler, is 38.37mmHg. 6. The pulmonic valve was not well visualized. 7. The aortic root size is normal. 8. IVC Not well visulized. 9. There is no pericardial effusion. 10. This was a technically good study. 11. Overall left ventricular systolic function is mildly impaired with, an EF between 45 - 50 %. 12. LA is midly dilated 29-33ml/m2. 13. Aortic valve is trileaflet and is mildly thickened. 14. There is neiz-[id number] aortic regurgitation. 15. The aortic pressure half-time by doppler is 567ms. 16. The mitral valve leaflets are mildly thickened. 17. Mild mitral annular calcification present. ALLIGATOR HUNTER: Donnie Olivo RDCS
--- NOTE | 2016-11-23 14:02 | DS ---
DATE OF ADMISSION: 11/21/2016 DATE OF DISCHARGE: 11/22/2016 FINAL DIAGNOSES: 1. Syncope, probably from tachybrady syndrome, with possibly exacerbated atrial fibrillation rate. 2. Atrial fibrillation, persistent. 3. Essential hypertension. 4. Cystocele/rectocele, chronic. 5. Left bundle branch block. 6. Chronic Coumadin monitoring. HOSPITAL COURSE: This patient presented with an episode of passing out; had a previous episode. Patient is known to have atrial fibrillation, has got a pacemaker. Has had 2 episodes of passing out. Had a pacemaker check done here. I spoke to Dr. Jigna Mack today; okay to discharge the patient. Patient has her own stress engineer and should follow up with her. Did discuss with the patient about being careful, in view of the fact that she is on Coumadin, though that is needed for atrial fibrillation. Patient also was seen by Neurology. She did have a carotid Doppler that was unremarkable. CT scan of the brain showed only progressive chronic atrophy. Two-D echocardiogram showed EF 45% to 50%. On examination: CARDIOVASCULAR: Heart sounds irregular. Lungs are clear. DISCHARGE MEDICATIONS: 1. Aspirin 81 mg a day. 2. Multivitamin 1 tablet p.o. daily. 3. Xanax 0.25 p.o. daily p.r.n. 4. Imdur ER 30 mg daily. 5. Cozaar 50 mg b.i.d. 6. Mevacor 10 mg at bedtime. 7. Lopressor 100 mg p.o. b.i.d. 8. Lotrimin topically daily. 9. Probiotic 1 capsule p.o. daily. 10. Nitro-Bid ointment 1 inch topically daily p.r.n. 11. Nitrostat 0.4 sublingually q.5 p.r.n. 12. Randall-3 1000 mg p.o. daily. 13. Psyllium 1.2 grams p.o. daily. 14. CoQ10 200 mg p.o. daily. 15. Norvasc 2.5 mg p.o. t.i.d. 16. Milk of Magnesia 2500 mg p.o. daily p.r.n. 17. Bactrim SS 400 one tablet p.o. q.12; 6 tablets. 18. Coumadin 2.5 mg Friday, Friday, Friday; new regimen. 19. Coumadin 5 mg on Friday, Friday, , Friday; new regimen. INR check to be followed. Patient to follow up with her own stress engineer in one week; Dr. Mitchell Davalos in one week. Discharge planning more than 35 minutes, including discussion.
[2016-11-24] MEDS ORDERED: WARFARIN 2.5 MG TAB PO SCH (18:00)
--- NOTE | 2016-11-25 19:20 | EEG ---
DATE OF SERVICE: 11/22/2016 REASON FOR TESTING: Syncope. DESCRIPTION OF THE PROCEDURE: This EEG was performed using a 21-channel digital electroencephalograph, following international 10-20 system. DESCRIPTION OF THE RECORDING: From the beginning of the tracing, and with the patient's eyes closed, the background rhythm was mostly consisting of 8 to 9 Hz alpha frequency in the posterior occipital leads. No obvious asymmetry is seen. Photic stimulation was performed with a minimal driving response seen. No pathological waves were elicited. Hyperventilation was not performed. Rare movement artifacts are seen. The patient remains awake throughout the tracing. No epileptiform discharges were seen. Her EKG lead showed a regular rate and rhythm. INTERPRETATION: This awake EEG can be considered within normal limits. There was no asymmetry seen. No epileptiform discharges were noticed. The absence of epileptiform discharges does not rule out the diagnosis of epilepsy; therefore clinical correlation is recommended.
== END 2016-11-22 17:59 | disposition home or self-care (01) | DRG 309 ==
LOC: EC 06:10 → 6SEL 13:03
PROVIDERS: ADMIT Hospitalist; ATTEND Hospitalist
PROC: 4B02XSZ Measurement of Cardiac Pacemaker, External Approach (ICD-10-PCS; principal; 2016-11-22)
DX: I49.5 Sick sinus syndrome (principal); I48.1 Persistent atrial fibrillation; I44.7 Left bundle-branch block, unspecified; E78.5 Hyperlipidemia, unspecified; I48.2 Chronic atrial fibrillation; I10 Essential (primary) hypertension; R61 Generalized hyperhidrosis; R41.0 Disorientation, unspecified; R01.1 Cardiac murmur, unspecified; M19.90 Unspecified osteoarthritis, unspecified site; N81.6 Rectocele; N81.10 Cystocele, unspecified; R29.6 Repeated falls; I67.9 Cerebrovascular disease, unspecified; Z95.0 Presence of cardiac pacemaker; Z79.82 Long term (current) use of aspirin; Z79.01 Long term (current) use of anticoagulants; Z79.899 Other long term (current) drug therapy; Z96.1 Presence of intraocular lens; Z98.41 Cataract extraction status, right eye; Z98.42 Cataract extraction status, left eye; Z86.73 Personal history of transient ischemic attack (TIA), and cerebral infarction without residual deficits; Z82.49 Family history of ischemic heart disease and other diseases of the circulatory system; Z80.42 Family history of malignant neoplasm of prostate; Z88.1 Allergy status to other antibiotic agents; Z88.8 Allergy status to other drugs, medicaments and biological substances; Z87.19 Personal history of other diseases of the digestive system; Z86.19 Personal history of other infectious and parasitic diseases; Z90.710 Acquired absence of both cervix and uterus; Z91.81 History of falling; Z86.79 Personal history of other diseases of the circulatory system; Z87.311 Personal history of (healed) other pathological fracture; Z87.828 Personal history of other (healed) physical injury and trauma; Z86.69 Personal history of other diseases of the nervous system and sense organs; W19.XXXD Unspecified fall, subsequent encounter
CPT/HCPCS: 36415; 70450; 71020; 72070; 72220; 80053; 81001; 82550; 82553; 83735; 84484; 85025; 85610; 85730; 93005; 93306; 93880; 95816; 99285

== ENCOUNTER → 2017-02-13 | Outpatient (CLI) | payer MEDICARE, BC ==
--- NOTE | 2017-02-13 19:01 | US ---
EXAMINATION TYPE: US bladder DATE OF EXAM: 02/13/2017 COMPARISON: NONE CLINICAL HISTORY: Urinary Retention R33.9. EXAM MEASUREMENTS: Post Void Residual Volume: 12.69 ml Normal Post Void Residual (less than 50ml): Yes Patient told to prep urinated before leaving doctors office. Spoke with Oswaldo at [facility] et him know normal post void residual ok to let patient go bladder empty. IMPRESSION: The post void urinary bladder images show estimated volume of 12.7 mL.
== END ==
LOC: RADUSMAIN 17:35
PROVIDERS: ATTEND Internal Medicine
DX: R33.9 Retention of urine, unspecified (principal)
CPT/HCPCS: 76857

== ENCOUNTER 2017-06-23 06:44 | Emergency (ER) | payer MEDICARE, BC ==
[2017-06-23] MEDS ORDERED: SODIUM CHLORIDE 0.9% 1,000 ML IV STA (07:48)
[2017-06-23] MEDS ORDERED: SODIUM CHLORIDE 0.9% 500 ML IV STA (07:48)
[2017-06-23] MEDS ORDERED: ONDANSETRON 4 MG/2 ML VIAL IVP STA (07:48)
[2017-06-23 07:50] LABS: Appearance,Urine Cloudy (Clear); Bacteria,Urine Rare /hpf; Bilirubin,Urine Negative (Negative); Blood,Urine Moderate (Negative); Color,Urine Yellow; Glucose,Urine (UA) Negative (Negative); Hyaline Casts,Urine 47 /lpf (0-2); Ketones,Urine Negative (Negative); Leukocyte Esterase,Urine Large (Negative); Mucus,Urine Many /hpf; Nitrite,Urine Negative (Negative); PH, Urine 6.5 (5.0-8.0); Protein,Urine 1+ (Negative); RBC,Urine 45 /hpf (0-5); Specific Gravity,Urine 1.018 (1.001-1.035); Squamous Epithelial Cell,Urine 4 /hpf (0-4); Urobilinogen,Urine <2.0 mg/dL (<2.0); WBC,Urine 46 /hpf (0-5)
--- NOTE | 2017-06-23 07:52 | ED ---
General Adult HPI - General Chief complaint: Urogenital Stated complaint: Flank pain Time Seen by Provider: 06/23/17 07:39 Source: patient, EMS, RN notes reviewed Mode of arrival: EMS Limitations: no limitations - History of Present Illness Initial comments: Patient is a pleasant 87-year-old female presenting to the emergency Department with dysuria and flank pain. Patient recently was at an urgent care and diagnosed with urinary tract infection. Patient was started on Bactrim. has continued symptoms. Patient does have nausea. No vomiting. Patient does have right posterior flank pain that does increase with movement. No fevers. - Related Data Home Medications Medication Instructions Recorded Confirmed Aspirin EC [Ecotrin Low Dose] 81 mg PO DAILY 11/26/13 06/23/17 Multivitamins, Thera [Multivitamin 1 tab PO DAILY 11/26/13 06/23/17 (formulary)] ALPRAZolam [Xanax] 0.25 mg PO DAILY PRN 09/13/14 06/23/17 Isosorbide Mononitrate ER [Imdur] 30 mg PO DAILY 09/13/14 06/23/17 Losartan [Cozaar] 50 mg PO BID 09/13/14 06/23/17 Lovastatin [Mevacor] 10 mg PO HS 09/13/14 06/23/17 Acetaminophen Tab [Tylenol] 325 - 650 mg PO Q6H PRN 06/18/16 06/23/17 Clotrimazole Cream [Lotrimin Cream] 1 applic TOPICAL DAILY PRN 06/18/16 06/23/17 L.acidoph,Paracasei, B.lactis 1 cap PO DAILY 06/18/16 06/23/17 [Probiotic] Nitroglycerin Oint Tube [Nitro-Bid 1 inch TOPICAL DAILY PRN 06/18/16 06/23/17 Oint Tube] Nitroglycerin Sl Tabs [Nitrostat] 0.4 mg SUBLINGUAL Q5M PRN 06/18/16 06/23/17 [place]-3 Fatty Acids [[place]hoe-3] 1,000 mg PO DAILY 06/18/16 06/23/17 Psyllium Husk [Psyllium] 1.2 gm PO QAM 06/18/16 06/23/17 Ubidecarenone [Co Q-10] 200 mg PO DAILY 06/18/16 06/23/17 amLODIPine [Norvasc] 2.5 mg PO BID 06/18/16 06/23/17 Docusate [Colace] 100 mg PO DAILY 06/23/17 06/23/17 [place]-3 Fatty Acids/Fish Oil [Fish 1 cap PO DAILY 06/23/17 06/23/17 Oil 1,000 mg Softgel] Sulfamethox-Tmp 800-160Mg [Bactrim 1 tab PO Q12HR 06/23/17 06/23/17 DS 800-160 mg] Warfarin Sodium [Coumadin] 4 mg PO DAILY@1700 06/23/17 06/23/17 Previous Rx's Medication Instructions Recorded Metoprolol Tartrate [Lopressor] 100 mg PO BID #20 tab 09/19/14 Nitrofurantoin Monohyd/M-Cryst 100 mg PO Q12HR #20 cap 06/23/17 [Macrobid] Allergies Allergy/AdvReac Type Severity Reaction Status Date / Time ciprofloxacin [From Cipro ] Allergy Unknown Verified 06/23/17 07:37 amiodarone AdvReac VISION Verified 06/23/17 07:37 CHANGES Review of Systems ROS Statement: Those systems with pertinent positive or pertinent negative responses have been documented in the HPI. ROS Other: All systems not noted in ROS Statement are negative. Constitutional: Reports: chills. Denies: fever Eyes: Denies: eye pain ENT: Denies: ear pain Respiratory: Denies: cough Cardiovascular: Denies: chest pain Endocrine: Denies: fatigue Gastrointestinal: Reports: abdominal pain (Mild suprapubic pain), nausea. Denies: vomiting Genitourinary: Reports: urgency, dysuria, frequency Musculoskeletal: Reports: back pain Skin: Denies: rash Past Medical History Past Medical History: Atrial Fibrillation, Hypertension Additional Past Medical History / Comment(s): Syncopy last week with fall and injured low back "tailbone" and hit head, syncopy and fall 11/26/13 which pt states was due to low blood pressure, T9 and T11 compression fractures, Afib with RVR, 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 History of Any Multi-Drug Resistant Organisms: None Reported Past Surgical History: Hysterectomy, Pacemaker, Tonsillectomy Additional Past Surgical History / Comment(s): colonoscopy, bilateral cataract removal with lens implants. Past Anesthesia/Blood Transfusion Reactions: No Reported Reaction Additional Past Anesthesia/Blood Transfusion Reaction / Comment(s): Pt has never recieved blood. Type of Cardiac Device: Permanent Pacemaker Device Placement Date:: 09/15/14 Past Psychological History: No Psychological Hx Reported Smoking Status: Never smoker Past Alcohol Use History: None Reported Past Drug Use History: None Reported - Past Family History Father Family Medical History: Cancer Additional Family Medical History / Comment(s): Father at age 89yrs of prostate cancer that went to the bone. Mother Family Medical History: Hypertension Additional Family Medical History / Comment(s): Mother lived to be 84 yrs old. General Exam Limitations: no limitations General appearance: alert, in no apparent distress Head exam: Present: atraumatic Eye exam: Present: normal appearance, PERRL ENT exam: Present: normal oropharynx Neck exam: Present: normal inspection Respiratory exam: Present: normal lung sounds bilaterally Cardiovascular Exam: Present: regular rate, normal rhythm Expanded Peripheral pulses: 2+: Dorsalis Pedis (R), Dorsalis Pedis (L) GI/Abdominal exam: Present: soft. Absent: distended, tenderness Extremities exam: Present: normal inspection Back exam: Present: CVA tenderness (R) (Mild discomfort right CVA region) Neurological exam: Present: alert Psychiatric exam: Present: normal affect, normal mood Skin exam: Present: normal color Course Vital Signs 06/23/17 06/23/17 06/23/17 06:46 08:07 09:31 Temperature 98.1 F 98 F Pulse Rate 72 62 61 Respiratory 18 16 16 Rate Blood Pressure 177/83 158/74 172/76 O2 Sat by Pulse 98 94 L 96 Oximetry Medical Decision Making - Medical Decision Making Patient did have 600 mL of urine out following ultrasound. Patient reevaluated and resting comfortably in bed. Patient updated on results and need for follow- up. Patient advised to return for vomiting, fever, increased pain, worsening symptoms. - Lab Data Result diagrams: 06/23/17 08:05 06/23/17 08:05 Lab Results 06/23/17 06/23/17 06/23/17 Range/Units 07:06 08:05 08:05 WBC 8.3 (3.8-10.6) k/uL RBC 4.24 (3.80-5.40) m/uL Hgb 13.6 (11.4-16.0) gm/dL Hct 41.2 (34.0-46.0) % MCV 97.1 (80.0-100.0) fL MCH 32.2 (25.0-35.0) pg MCHC 33.1 (31.0-37.0) g/dL RDW 12.9 (11.5-15.5) % Plt Count 302 (150-450) k/uL Neutrophils % 81 % Lymphocytes % 12 % Monocytes % 5 % Eosinophils % 1 % Basophils % 0 % Neutrophils # 6.7 (1.3-7.7) k/uL Lymphocytes # 1.0 (1.0-4.8) k/uL Monocytes # 0.5 (0-1.0) k/uL Eosinophils # 0.1 (0-0.7) k/uL Basophils # 0.0 (0-0.2) k/uL Sodium 132 L (137-145) mmol/L Potassium 4.5 (3.5-5.1) mmol/L Chloride 97 L (98-107) mmol/L Carbon Dioxide 24 (22-30) mmol/L Anion Gap 11 mmol/L BUN 12 (7-17) mg/dL Creatinine 0.67 (0.52-1.04) mg/dL Est GFR (MDRD) Af Amer >60 (>60 ml/min/1.73 sqM) Est GFR (MDRD) Non-Af >60 (>60 ml/min/1.73 sqM) Glucose 110 H (74-99) mg/dL Calcium 9.6 (8.4-10.2) mg/dL Total Bilirubin 0.6 (0.2-1.3) mg/dL AST 24 (14-36) U/L ALT 32 (9-52) U/L Alkaline Phosphatase 113 (38-126) U/L Total Protein 6.9 (6.3-8.2) g/dL Albumin 3.9 (3.5-5.0) g/dL Amylase 54 (30-110) U/L Lipase 104 (23-300) U/L Urine Color Yellow Urine Appearance Cloudy H (Clear) Urine pH 6.5 (5.0-8.0) Ur Specific [place] 1.018 (1.001-1.035) Urine Protein 1+ H (Negative) Urine Glucose (UA) Negative (Negative) Urine Ketones Negative (Negative) Urine Blood Moderate H (Negative) Urine Nitrite Negative (Negative) Urine Bilirubin Negative (Negative) Urine Urobilinogen <2.0 (<2.0) mg/dL Ur Leukocyte Esterase Large H (Negative) Urine RBC 45 H (0-5) /hpf Urine WBC 46 H (0-5) /hpf Ur Squamous Epith Cells 4 (0-4) /hpf Urine Bacteria Rare H (None) /hpf Hyaline Casts 47 H (0-2) /lpf Urine Mucus Many H (None) /hpf - Radiology Data Radiology results: report reviewed (Computed tomography scan of the abdomen pelvis shows prominent air and fluid filled right colon, retained fecal debris. There is noted within the rectum. Ultrasound shows distended bladder. No hydronephrosis or nephrolithiasis.), image reviewed (KUB shows possible ileus.) Disposition Clinical Impression: Urinary tract infection, Constipation Disposition: HOME SELF-CARE Condition: Stable Instructions: Urinary Tract Infection in Women (ED), Constipation (ED), High Fiber Diet (ED) Additional Instructions: Continue with stool softeners. Increase fluids. [id number] prune juice. Return for fevers, vomiting, increased pain, worsening symptoms or other concerns. Please follow-up with your doctor in the next day or 2 and have your doctor review urine culture results. Prescriptions: Nitrofurantoin Monohyd/M-Cryst [Macrobid] 100 mg PO Q12HR #20 cap Referrals: Mitchell Davalos MD [Primary Care Provider] - 1-2 days Time of Disposition: 10:25
[2017-06-23 08:19] LABS: Basophils % (A) 0 %; Eosinophils # (A) 0.1 k/uL (0-0.7); Eosinophils % (A) 1 %; HCT 41.2 % (34.0-46.0); HGB 13.6 gm/dL (11.4-16.0); Lymphocytes % (A) 12 %; MCH 32.2 pg (25.0-35.0); MCHC 33.1 g/dL (31.0-37.0); MCV 97.1 fL (80.0-100.0); Mean Platelet Volume 6.8; Monocytes # (A) 0.5 k/uL (0-1.0); Monocytes % (A) 5 %; Neutrophils # (A) 6.7 k/uL (1.3-7.7); Neutrophils % (A) 81 %; Platelet Count 302 k/uL (150-450); RBC 4.24 m/uL (3.80-5.40); RDW 12.9 % (11.5-15.5); WBC 8.3 k/uL (3.8-10.6)
[2017-06-23 08:30] LABS: ALT 32 U/L (9-52); AST 24 U/L (14-36); Albumin 3.9 g/dL (3.5-5.0); Alkaline Phosphatase 113 U/L (38-126); Amylase 54 U/L (30-110); Anion Gap 11 mmol/L; Blood Urea Nitrogen 12 mg/dL (7-17); Calcium 9.6 mg/dL (8.4-10.2); Carbon Dioxide 24 mmol/L (22-30); Chloride 97 mmol/L (98-107); Glucose 110 mg/dL (74-99); Lipase 104 U/L (23-300); Potassium 4.5 mmol/L (3.5-5.1); Sodium 132 mmol/L (137-145); Total Bilirubin 0.6 mg/dL (0.2-1.3); Total Protein 6.9 g/dL (6.3-8.2)
--- NOTE | 2017-06-23 08:41 | US ---
EXAMINATION TYPE: US kidneys/renal and bladder DATE OF EXAM: 06/23/2017 COMPARISON: US Bladder CLINICAL HISTORY: Pain. Pt states right flank pain and unable to empty bladder EXAM MEASUREMENTS: Right Kidney: 9.0 x 4.7 x 4.9 cm Left Kidney: 9.3 x 4.9 x 4.2 cm Limited visualization of kidneys due to overlying bowel gas Right Kidney: No evidence of hydro, difficult to visualize . No gross evidence of nephrolithiasis. C ortical medullary differentiation is maintained. No cortical renal thinning. Left Kidney: No evidence of hydro, difficult to visualize . No gross evidence of nephrolithiasis. Co rtical medullary differentiation is maintained. No cortical renal thinning. Bladder: Kevin distended, pt unable to empty bladder Volume= 329 ml Bilateral Jets seen: Yes There is no evidence for hydronephrosis at this point in time. No nephrolithiasis is seen. No nickolas s are identified. The urinary bladder is anechoic. Bilateral ureteral jets are seen. IMPRESSION: 1. Distention of the urinary bladder with volume at 329 mL. Urinary bladder appears anechoic and unre markable. 2. No evidence of hydronephrosis or nephrolithiasis.
--- NOTE | 2017-06-23 09:01 | XR ---
Abdomen HISTORY: Pain, hematuria Frontal view of the abdomen submitted. Sacrum and coccyx 11/21/2016 Heart is enlarged. Intracardiac leads are present in the right atrium and ventricle. Vertebral plasty change present in the thoracic spine, metallic densities present over the sacrum bilaterally may be related to postprocedural findings, correlate for patient history. Bone mineralization is low. There is no evident pneumoperitoneum. Gas-filled loops of bowel are present. Vascular calcifications are pr esent within the pelvis. IMPRESSION: There may be an underlying ileus, follow-up as indicated if bowel obstruction is suspecte d. Additional findings above.
[2017-06-23] MEDS ORDERED: cefTRIAXone IN SWFI 1,000 MG/10 ML SYRINGE IVP STA (09:32)
[2017-06-23] MEDS ORDERED: ACETAMINOPHEN TAB 325 MG TAB PO STA (09:32)
--- NOTE | 2017-06-23 10:07 | CT ---
EXAMINATION TYPE: CT abdomen pelvis wo con DATE OF EXAM: 06/23/2017 COMPARISON: 02/13/2017 HISTORY: Rt flank pain CT DLP: 242.4 mGycm Automated exposure control for dose reduction was used. TECHNIQUE: Helical acquisition of images was performed from the lung bases through the pelvis. FINDINGS: LUNG BASES: Subsegmental changes seen at both lung bases. Cardiac leads are noted with cardiomegaly. Basilar bronchiectasis noted. LIVER/GB: No significant abnormality is appreciated. PANCREAS: No significant abnormality is seen. SPLEEN: No significant abnormality is seen. ADRENALS: No significant abnormality is seen. KIDNEYS: No significant abnormality is seen. URINARY BLADDER: No significant abnormality is seen. ADENOPATHY: None visualized. OSSEOUS STRUCTURES: Marked sclerosis involving the sacrum bilaterally. Multilevel degenerative disc disease with grade 1 anterolisthesis L4 on L5 and L3 on L4. Chronic appearing endplate deformities ar e seen at multiple levels and there is multilevel facet arthropathy. Tarlov cysts in the sacrum noted . Arthropathy of the hips. Bilateral spondylolysis of L5. BOWEL: There is seen throughout the colon with prominent air-filled colon and retained fecal debris. Air noted within the rectum. OTHER: Vascular calcifications noted. IMPRESSION: 1. No evidence of renal stones or hydronephrosis. 2. Prominent air and stool-filled right colon. Air is seen distally within the rectum.
[2017-06-23 11:03] VITALS: BP 136/68; PULSE 71; RESP 18; TEMP 97.8
== END 2017-06-23 11:00 | disposition home or self-care (01) ==
LOC: EC 06:44
DX: N39.0 Urinary tract infection, site not specified (principal); K59.00 Constipation, unspecified; I48.91 Unspecified atrial fibrillation; I10 Essential (primary) hypertension; Z95.0 Presence of cardiac pacemaker; Z79.82 Long term (current) use of aspirin; Z79.899 Other long term (current) drug therapy; Z79.01 Long term (current) use of anticoagulants; Z88.1 Allergy status to other antibiotic agents; Z88.8 Allergy status to other drugs, medicaments and biological substances
CPT/HCPCS: 99284 ×2; 96374 ×2; 96375 ×2; 96361 ×2; 51798; 36415; 80053; 82150; 83690; 85025; 81001; 87086; 74018; 76770; 74176; J2405; J0696

== ENCOUNTER 2019-03-14 14:19 | Emergency (ER) | payer MEDICARE, BC ==
[2019-03-14 14:33] VITALS: RESP 18
[2019-03-14 16:00] LABS: Appearance,Urine Clear (Clear); Bilirubin,Urine Negative (Negative); Blood,Urine Moderate (Negative); Color,Urine Colorless; Glucose,Urine (UA) Negative (Negative); Hyaline Casts,Urine 3 /lpf (0-2); Ketones,Urine Negative (Negative); Leukocyte Esterase,Urine Moderate (Negative); Mucus,Urine Rare /hpf; Nitrite,Urine Negative (Negative); PH, Urine 6.5 (5.0-8.0); Protein,Urine Negative (Negative); RBC,Urine 28 /hpf (0-5); Specific Gravity,Urine 1.006 (1.001-1.035); Squamous Epithelial Cell,Urine <1 /hpf (0-4); Urobilinogen,Urine <2.0 mg/dL (<2.0); WBC,Urine 33 /hpf (0-5)
--- NOTE | 2019-03-14 16:03 | ED ---
Female Urogenital HPI - General Chief complaint: Urogenital Stated complaint: POSS UTI, URINE RETENTION Time Seen by Provider: 03/14/19 14:58 Source: patient, EMS Mode of arrival: EMS Limitations: no limitations - History of Present Illness Initial comments: 89-year-old female presenting for possible urinary tract infection and elevated blood pressure x 1 day. Patient states that she has dysuria urgency frequency x 1 day. Patient states that she does have history of cystocele and she feels like her vagina is falling down. Patient states she has not worn her pessary in 3 years. Patient states she did place the pessary in her vagina today. Patient denies any brown discharge from the vagina she denies any feces coming from the vagina or heavy vaginal bleeding. Patient denies any rectal bleeding diarrhea melena hematochezia. Patient states she has also had resistant hypertension is on multiple blood pressure medications. Patient states she has been measuring her blood pressure throughout the day and noticed that it was elevated she stat es that she thought was best that she came to the ER for both abnormalities possibly urinary tract infection and the elevation of blood pressure. Patient denies any headache dizziness neck pain abdominal pain decreased and urine production chest pain shortness of breath back pain leg swelling difficulty breathing paresthesias weakness. remaining review of system negative. Upon arrival patient appears well no signs acute distress. Blood pressure is noted to be elevated. - Related Data Home Medications Medication Instructions Recorded Confirmed Aspirin EC [Ecotrin Low Dose] 81 mg PO DAILY 11/26/13 06/23/17 Multivitamins, Thera [Multivitamin 1 tab PO DAILY 11/26/13 06/23/17 (formulary)] ALPRAZolam [Xanax] 0.25 mg PO DAILY PRN 09/13/14 06/23/17 Isosorbide Mononitrate ER [Imdur] 30 mg PO DAILY 09/13/14 06/23/17 Losartan [Cozaar] 50 mg PO BID 09/13/14 06/23/17 Lovastatin [Mevacor] 10 mg PO HS 09/13/14 06/23/17 Acetaminophen Tab [Tylenol] 325 - 650 mg PO Q6H PRN 06/18/16 06/23/17 Clotrimazole Cream [Lotrimin Cream] 1 applic TOPICAL DAILY PRN 06/18/16 06/23/17 L.acidoph,Paracasei, B.lactis 1 cap PO DAILY 06/18/16 06/23/17 [Probiotic] Nitroglycerin Oint Tube [Nitro-Bid 1 inch TOPICAL DAILY PRN 06/18/16 06/23/17 Oint Tube] Nitroglycerin Sl Tabs [Nitrostat] 0.4 mg SUBLINGUAL Q5M PRN 06/18/16 06/23/17 Alzada-3 Fatty Acids [Alzada-3] 1,000 mg PO DAILY 06/18/16 06/23/17 Psyllium Husk [Psyllium] 1.2 gm PO QAM 06/18/16 06/23/17 Ubidecarenone [Co Q-10] 200 mg PO DAILY 06/18/16 06/23/17 amLODIPine [Norvasc] 2.5 mg PO BID 06/18/16 06/23/17 Docusate [Colace] 100 mg PO DAILY 06/23/17 06/23/17 [place]zada-3 Fatty Acids/Fish Oil [Fish 1 cap PO DAILY 06/23/17 06/23/17 Oil 1,000 mg Softgel] Sulfamethox-Tmp 800-160Mg [Bactrim 1 tab PO Q12HR 06/23/17 06/23/17 DS 800-160 mg] Warfarin Sodium [Coumadin] 4 mg PO DAILY@1700 06/23/17 06/23/17 Previous Rx's Medication Instructions Recorded Metoprolol Tartrate [Lopressor] 100 mg PO BID #20 tab 09/19/14 Nitrofurantoin Monohyd/M-Cryst 100 mg PO Q12HR #20 cap 06/23/17 [Macrobid] Cephalexin [Keflex] 500 mg PO Q12HR 7 Days #21 cap 03/14/19 Allergies Allergy/AdvReac Type Severity Reaction Status Date / Time ciprofloxacin [From Cipro ] Allergy Unknown Verified 06/23/17 07:37 amiodarone AdvReac VISION Verified 06/23/17 07:37 CHANGES Review of Systems ROS Statement: Those systems with pertinent positive or pertinent negative responses have been documented in the HPI. ROS Other: All systems not noted in ROS Statement are negative. 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 History of Any Multi-Drug Resistant Organisms: None Reported Past Surgical History: Hysterectomy, Pacemaker, Tonsillectomy Additional Past Surgical History / Comment(s): colonoscopy, bilateral cataract removal with lens implants. Past Anesthesia/Blood Transfusion Reactions: No Reported Reaction Additional Past Anesthesia/Blood Transfusion Reaction / Comment(s): Pt has never recieved blood. Type of Cardiac Device: Permanent Pacemaker Device Placement Date:: 09/15/14 Past Psychological History: No Psychological Hx Reported Smoking Status: Never smoker Past Alcohol Use History: None Reported Past Drug Use History: None Reported - Past Family History Father Family Medical History: Cancer Additional Family Medical History / Comment(s): Father at age 89yrs of prostate cancer that went to the bone. Mother Family Medical History: Hypertension Additional Family Medical History / Comment(s): Mother lived to be 84 yrs old. General Exam - General Exam Comments Initial Comments: General: The patient is awake and alert, in no distress, and does not appear acutely ill. Eye: +3 mm pupils are equal, round and reactive to light, extra-ocular movements are intact. No nystagmus. There is normal conjunctiva bilaterally. No signs of icterus. Ears, nose, mouth and throat: There are moist mucous membranes and no oral lesions. Neck: The neck is supple, there is no tenderness or JVD. Cardiovascular: There is a regular rate and rhythm. No murmur, rub or gallop is appreciated. Respiratory: Lungs are clear to auscultation, respirations are non-labored, breath sounds are equal. No wheezes, stridor, rales, or rhonchi. Gastrointestinal: Soft, non-distended, non-tender abdomen without masses or organomegaly noted. There is no rebound or guarding present. Vaginal examination revealed no evidence of protruding cystocele rectocele. No vaginal bleeding or vaginal discharge or orders. Musculoskeletal: Normal ROM, no tenderness. Strength 5/5. Sensation intact. Pulses equal bilaterally 2+. Neurological: A&O x 3. CN II-XII intact, There are no obvious motor or sensory deficits. Coordination appears grossly intact. Speech is normal. Skin: Skin is warm and dry and no rashes or lesions are noted. No LE edema. Psychiatric: Cooperative, appropriate mood & affect, normal judgment. Limitations: no limitations Course Vital Signs 03/14/19 03/14/19 14:26 18:45 Temperature 98.3 F 97.9 F Pulse Rate 86 65 Respiratory 18 18 Rate Blood Pressure 190/114 136/85 O2 Sat by Pulse 94 L 96 Oximetry Medical Decision Making - Medical Decision Making Well-appearing 89-year-old female presents for multiple complaints. Urinalysis does reveal evidence consistent with a urinary tract infection. Bedside bladder scan was performed revealing no evidence of urine in the bladder, this is perfo rmed by sergey and nick Rivera. History for multiple times with consistent results patient did have his bladder scan performed after voiding. Patient is no obvious cystocele on examination. She does have a pessary. Patient has no evidence of fecal matter coming from the vagina. Patient has abdominal pain on examination is off. Patient was given 1 IV push and Rocephin for urinary tract infection. Patient is no flank pain fevers. Patient is mild leukocytosis. Patient is concerned about elevated blood pressure. There is no signs or symptoms consistent with end organ damage. EKG revealed a paced rhythm. No acute findings. Troponin negative. Chest x-ray clear. No signs of fluid overload on examination of focal neurological deficits. Patient appears well besides acute distress. Blood pressure was managed with 10 mg of hydralazine emergency department. Patient denies any current complaints. Patient is agreeable this care plan patient is instructed to follow-up with urology as well as primary care provider. Patient states she does have an appointment this week. Return parameters were discussed at length the patient was discharged. Well nontoxic no signs of sepsis. Case is discussed with attending provider Dr. Pederson who was agreeable with care plan and discharge. he reviewed EKG. - Lab Data Result diagrams: 03/14/19 16:24 03/14/19 16:24 Lab Results 03/14/19 03/14/19 03/14/19 Range/Units 15:45 16:24 16:24 WBC 12.0 H (3.8-10.6) k/uL RBC 4.47 (3.80-5.40) m/uL Hgb 14.3 (11.4-16.0) gm/dL Hct 42.0 (34.0-46.0) % MCV 94.1 (80.0-100.0) fL MCH 32.1 (25.0-35.0) pg MCHC 34.1 (31.0-37.0) g/dL RDW 12.7 (11.5-15.5) % Plt Count 388 (150-450) k/uL Neutrophils % 77 % Lymphocytes % 16 % Monocytes % 5 % Eosinophils % 1 % Basophils % 0 % Neutrophils # 9.3 H (1.3-7.7) k/uL Lymphocytes # 1.9 (1.0-4.8) k/uL Monocytes # 0.6 (0-1.0) k/uL Eosinophils # 0.1 (0-0.7) k/uL Basophils # 0.0 (0-0.2) k/uL PT (9.0-12.0) sec INR (<1.2) APTT (22.0-30.0) sec Sodium 133 L (137-145) mmol/L Potassium 3.7 (3.5-5.1) mmol/L Chloride 98 (98-107) mmol/L Carbon Dioxide 23 (22-30) mmol/L Anion Gap 12 mmol/L BUN 12 (7-17) mg/dL Creatinine 0.56 (0.52-1.04) mg/dL Est GFR (CKD-EPI)AfAm >90 (>60 ml/min/1.73 sqM) Est GFR (CKD-EPI)NonAf 84 (>60 ml/min/1.73 sqM) Glucose 113 H (74-99) mg/dL Plasma Lactic Acid Telly (0.7-2.0) mmol/L Calcium 9.4 (8.4-10.2) mg/dL Total Bilirubin 0.6 (0.2-1.3) mg/dL AST 29 (14-36) U/L ALT 21 (9-52) U/L Alkaline Phosphatase 84 (38-126) U/L Troponin I (0.000-0.034) ng/mL Total Protein 7.7 (6.3-8.2) g/dL Albumin 4.2 (3.5-5.0) g/dL Urine Color Colorless Urine Appearance Clear (Clear) Urine pH 6.5 (5.0-8.0) Ur Specific [place] 1.006 (1.001-1.035) Urine Protein Negative (Negative) Urine Glucose (UA) Negative (Negative) Urine Ketones Negative (Negative) Urine Blood Moderate H (Negative) Urine Nitrite Negative (Negative) Urine Bilirubin Negative (Negative) Urine Urobilinogen <2.0 (<2.0) mg/dL Ur Leukocyte Esterase Moderate H (Negative) Urine RBC 28 H (0-5) /hpf Urine WBC 33 H (0-5) /hpf Ur Squamous Epith Cells <1 (0-4) /hpf Hyaline Casts 3 H (0-2) /lpf Urine Mucus Rare H (None) /hpf 03/14/19 03/14/19 03/14/19 Range/Units 16:24 16:24 16:24 WBC (3.8-10.6) k/uL RBC (3.80-5.40) m/uL Hgb (11.4-16.0) gm/dL Hct (34.0-46.0) % MCV (80.0-100.0) fL MCH (25.0-35.0) pg MCHC (31.0-37.0) g/dL RDW (11.5-15.5) % Plt Count (150-450) k/uL Neutrophils % % Lymphocytes % % Monocytes % % Eosinophils % % Basophils % % Neutrophils # (1.3-7.7) k/uL Lymphocytes # (1.0-4.8) k/uL Monocytes # (0-1.0) k/uL Eosinophils # (0-0.7) k/uL Basophils # (0-0.2) k/uL PT 18.3 H (9.0-12.0) sec INR 1.9 H (<1.2) APTT 34.3 H (22.0-30.0) sec Sodium (137-145) mmol/L Potassium (3.5-5.1) mmol/L Chloride (98-107) mmol/L Carbon Dioxide (22-30) mmol/L Anion Gap mmol/L BUN (7-17) mg/dL Creatinine (0.52-1.04) mg/dL Est GFR (CKD-EPI)AfAm (>60 ml/min/1.73 sqM) Est GFR (CKD-EPI)NonAf (>60 ml/min/1.73 sqM) Glucose (74-99) mg/dL Plasma Lactic Acid Telly 1.7 (0.7-2.0) mmol/L Calcium (8.4-10.2) mg/dL Total Bilirubin (0.2-1.3) mg/dL AST (14-36) U/L ALT (9-52) U/L Alkaline Phosphatase (38-126) U/L Troponin I <0.012 (0.000-0.034) ng/mL Total Protein (6.3-8.2) g/dL Albumin (3.5-5.0) g/dL Urine Color Urine Appearance (Clear) Urine pH (5.0-8.0) Ur Specific [place] (1.001-1.035) Urine Protein (Negative) Urine Glucose (UA) (Negative) Urine Ketones (Negative) Urine Blood (Negative) Urine Nitrite (Negative) Urine Bilirubin (Negative) Urine Urobilinogen (<2.0) mg/dL Ur Leukocyte Esterase (Negative) Urine RBC (0-5) /hpf Urine WBC (0-5) /hpf Ur Squamous Epith Cells (0-4) /hpf Hyaline Casts (0-2) /lpf Urine Mucus (None) /hpf - EKG Data EKG Comments: Ventricular rate 83 bpm, AR interval 136 platelets, QRS duration 142 ms, QT/QTC 380/446. This is atrial sensed ventricular paced rhythm. There is no acute abnormalities noted possible left bundle branch block. 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 Patient does have previous history of left bundle-branch block. Disposition Clinical Impression: UTI (urinary tract infection), Elevated blood pressure reading Disposition: HOME SELF-CARE Condition: Good Instructions (If sedation given, give patient instructions): Urinary Tract Infection in Women (ED), Chronic Hypertension (ED) Additional Instructions: Please use medication as discussed. Please follow-up with family doctor in the next 2 days, urology within next week. Please return to emergency room if the symptoms increase or worsen or for any other concerns. Prescriptions: Cephalexin [Keflex] 500 mg PO Q12HR 7 Days #21 cap Is patient prescribed a controlled substance at d/c from ED?: No Referrals: Mitchell Davalos MD [Primary Care Provider] - 1-2 days Paco Santoro MD [STAFF PHYSICIAN] - 1-2 days Time of Disposition: 18:24
[2019-03-14] MEDS ORDERED: hydrALAZINE HCL 20 MG/ML 1 ML VIAL IVP STA (16:46)
[2019-03-14 16:48] LABS: Basophils % (A) 0 %; Eosinophils # (A) 0.1 k/uL (0-0.7); Eosinophils % (A) 1 %; HGB 14.3 gm/dL (11.4-16.0); Lymphocytes # (A) 1.9 k/uL (1.0-4.8); Lymphocytes % (A) 16 %; MCH 32.1 pg (25.0-35.0); MCHC 34.1 g/dL (31.0-37.0); MCV 94.1 fL (80.0-100.0); Mean Platelet Volume 6.3; Monocytes # (A) 0.6 k/uL (0-1.0); Monocytes % (A) 5 %; Neutrophils # (A) 9.3 k/uL (1.3-7.7); Neutrophils % (A) 77 %; Platelet Count 388 k/uL (150-450); RBC 4.47 m/uL (3.80-5.40); RDW 12.7 % (11.5-15.5)
[2019-03-14 17:04] LABS: ALT 21 U/L (9-52); AST 29 U/L (14-36); African American GFR (CKD) >90 (>60 ml/min/1.73 sqM); Albumin 4.2 g/dL (3.5-5.0); Alkaline Phosphatase 84 U/L (38-126); Anion Gap 12 mmol/L; Blood Urea Nitrogen 12 mg/dL (7-17); Calcium 9.4 mg/dL (8.4-10.2); Carbon Dioxide 23 mmol/L (22-30); Chloride 98 mmol/L (98-107); Glucose 113 mg/dL (74-99); Potassium 3.7 mmol/L (3.5-5.1); Sodium 133 mmol/L (137-145); Total Bilirubin 0.6 mg/dL (0.2-1.3); Total Protein 7.7 g/dL (6.3-8.2)
[2019-03-14 17:11] LABS: INR 1.9 (<1.2); Partial Thromboplastin Time 34.3 sec (22.0-30.0); Prothrombin Time 18.3 sec (9.0-12.0)
--- NOTE | 2019-03-14 17:19 | XR ---
EXAMINATION TYPE: XR chest 2V DATE OF EXAM: 03/14/2019 COMPARISON: 11/21/2016 HISTORY: Urinary tract infection. Hypertension. TECHNIQUE: Frontal and lateral views of the chest are obtained. FINDINGS: Heart is normal. Lungs are clear of infiltrate. There is left axillary pacemaker. Thoracic aorta is atheromatous. There is no pleural effusion. There is vertebroplasty of mid thoracic vertebr a. IMPRESSION: No active cardiac pulmonary disease. No change.
[2019-03-14] MEDS ORDERED: cefTRIAXone IN SWFI 1,000 MG/10 ML SYRINGE IVP STA (17:36)
[2019-03-14 18:47] VITALS: BP 136/85; PULSE 65; TEMP 97.9
== END 2019-03-14 18:47 | disposition home or self-care (01) ==
LOC: EC 14:19
DX: N39.0 Urinary tract infection, site not specified (principal); I10 Essential (primary) hypertension; I48.91 Unspecified atrial fibrillation; Z79.01 Long term (current) use of anticoagulants; Z79.82 Long term (current) use of aspirin; Z79.899 Other long term (current) drug therapy; Z88.1 Allergy status to other antibiotic agents; Z88.8 Allergy status to other drugs, medicaments and biological substances; Z95.0 Presence of cardiac pacemaker; Z86.73 Personal history of transient ischemic attack (TIA), and cerebral infarction without residual deficits
CPT/HCPCS: 36415; 93005; 80053; 83605; 84484; 85025; 85610; 85730; 81001; 87086; 71046; 99284; 96374; 96375; J0360; J0696

== ENCOUNTER → 2019-07-21 | Outpatient (CLI) | payer MEDICARE, BC ==
--- NOTE | 2019-07-21 09:34 | US ---
EXAMINATION TYPE: US thyroid st tissue head/neck DATE OF EXAM: 07/21/2019 COMPARISON: NONE CLINICAL HISTORY: E04.1 Thyroid Nodule. nodules per order, no imaging done here GLAND SIZE: Right Lobe: 2.9 x 1.2 x 2.0 cm Overall Parenchyma: heterogenous Left Lobe: 3.5 x 0.8 x 1.5 cm Overall Parenchyma: heterogeneous Isthmus Thickness: 0.3 cm NODULES RIGHT: # of nodules measured on right: 2 1. 0.9 X 0.9 x 1.0 cm solid nodule at the mid pole with well-defined margins. This nodule is wider than tall and shows intranodular vascularity. Prior size: RETAIL DELIVERY DRIVER 2. 1.4 X 1.0 x 0.9 cm cystic nodule at the lower pole with well-defined margins. This nodule is roberta ler than wide and shows no intranodular vascularity. Prior size: RETAIL DELIVERY DRIVER LEFT: # of nodules measured on left: subcentimeter cyst and calcification noted ISTHMUS: # of nodules measured in the isthmus: 0 Bilateral neck scanned, no evidence of lymphadenopathy. IMPRESSION: Benign-appearing cystic right thyroid nodule measures 1.4 cm and a solitary solid 1.0 cm right thyroid nodule is seen. This is too small for fine-needle aspiration at this time and follow-up ultrasound is recommended in 12 months.
== END | disposition home or self-care (01) ==
LOC: RADUSWWP 08:34
PROVIDERS: ATTEND Internal Medicine
DX: E04.1 Nontoxic single thyroid nodule (principal)
CPT/HCPCS: 76536

== ENCOUNTER 2019-07-29 11:15 | Observation (INO) | payer MEDICARE, BC ==
[2019-07-29 12:16] LABS: Basophils % (A) 0 %; Eosinophils # (A) 0.1 k/uL (0-0.7); Eosinophils % (A) 1 %; HCT 42.8 % (34.0-46.0); HGB 14.3 gm/dL (11.4-16.0); Lymphocytes # (A) 1.2 k/uL (1.0-4.8); Lymphocytes % (A) 14 %; MCH 32.7 pg (25.0-35.0); MCHC 33.3 g/dL (31.0-37.0); MCV 98.2 fL (80.0-100.0); Mean Platelet Volume 7.5; Monocytes # (A) 0.3 k/uL (0-1.0); Monocytes % (A) 4 %; Neutrophils # (A) 6.9 k/uL (1.3-7.7); Neutrophils % (A) 79 %; Platelet Count 317 k/uL (150-450); RBC 4.36 m/uL (3.80-5.40); RDW 12.4 % (11.5-15.5); WBC 8.7 k/uL (3.8-10.6)
--- NOTE | 2019-07-29 12:16 | ED ---
General Adult HPI - General Chief complaint: Neuro Symptoms/Deficit Stated complaint: poss TIA Time Seen by Provider: 07/29/19 11:19 Source: EMS Mode of arrival: EMS Limitations: altered mental status - History of Present Illness Initial comments: Dictation was produced using [employer] dictation software. please excuse any grammatical, word or spelling errors. Chief Complaint: 89-year-old female past medical history atrial fibrillation, hypertension presents with altered mental status. History of Present Illness: 89-year-old female she is brought in by EMS for altered mental status. Patient lives alone. Patient's son is at bedside to assist in providing history of present illness. Patient was allegedly having signs of altered mentation since today. This morning her son went to go check on her that she was more confused than usual. Patient was unable to answer higher order questions. Patient has had episodes like this before and was told that this was secondary to dehydration or urinary tract infection. He has no history of dementia. According to son patient is rather high functioning at her age and still able to drive. Patient has no specific complaints at this time. She does not feel like she is confused. The ROS documented in this emergency department record has been reviewed and confirmed by me. Those systems with pertinent positive or negative responses have been documented in the HPI. All other systems are other negative and/or noncontributory. PHYSICAL EXAM: General Impression: Alert and oriented x3/4, not in acute distress HEENT: Normocephalic atraumatic, extra-ocular movements intact, pupils equal and reactive to light bilaterally, mucous membranes moist. Cardiovascular: Heart regular rate and rhythm, S1&S2 audible, no murmurs, rubs or gallops Chest: Lungs clear to auscultation bilaterally, no rhonchi, no wheeze, no rales Abdomen: Bowel sounds present, abdomen soft, non-tender, non-distended, no organomegaly Musculoskeletal: Pulses present and equal in all extremities, no peripheral edema Motor: no focal deficits noted Neurological: CN II-XII grossly intact, no focal motor or sensory deficits noted, no pronator drift, unable to higher order questions, does not know what year it is or what her son's birthday is, no neck stiffness, negative Kernig's, negative Brudzinski's Skin: Intact with no visualized rashes Psych: Normal affect and mood ED course: 86-year-old female presents with altered mental status. Signs upon arrival are within acceptable limits. She not showing any sort overt stroke like symptoms. She is coherent but stroke is not page. NIH is 0. She does however have difficulties answering higher or questions. Laboratory evaluation is obtained. CBC unremarkable. INR is 2.2. Patient is on Coumadin. Metabolic panel is unremarkable. Urinalysis concerning for urinary tract infection. Influenza test is negative. Brain CT is unremarkable however there is evidence of remote ischemia and nonspecific white matter changes. Patient given an aspirin for concerns of CVA. She is treated for urinary tract infection using Rocephin. Patient be admitted with consultation to neurology. Discussed patient case with Dr. Brown of some physician group was went except patient's care. Patient reevaluated at bedside with stable medical condition. - Related Data Home Medications Medication Instructions Recorded Confirmed Aspirin EC [Ecotrin Low Dose] 81 mg PO DAILY 11/26/13 07/29/19 Multivitamins, Thera [Multivitamin 1 tab PO DAILY 11/26/13 07/29/19 (formulary)] Isosorbide Mononitrate ER [Imdur] 30 mg PO DAILY 09/13/14 07/29/19 Lovastatin [Mevacor] 10 mg PO HS 09/13/14 07/29/19 Acetaminophen Tab [Tylenol] 325 - 650 mg PO Q6H PRN 06/18/16 07/29/19 Clotrimazole Cream [Lotrimin Cream] 1 applic TOPICAL DAILY PRN 06/18/16 07/29/19 Nitroglycerin Oint Tube [Nitro-Bid 1 inch TOPICAL DAILY PRN 06/18/16 07/29/19 Oint Tube] Nitroglycerin Sl Tabs [Nitrostat] 0.4 mg SUBLINGUAL Q5M PRN 06/18/16 07/29/19 Psyllium Husk [Psyllium] 1.2 gm PO QAM 06/18/16 07/29/19 amLODIPine [Norvasc] 2.5 mg PO BID 06/18/16 07/29/19 Docusate [Colace] 100 mg PO DAILY 06/23/17 07/29/19 [place]-3 Fatty Acids/Fish Oil [Fish 1 cap PO DAILY 06/23/17 07/29/19 Oil 1,000 mg Softgel] Warfarin Sodium [Coumadin] 4 mg PO DAILY@1700 06/23/17 07/29/19 Losartan [Cozaar] 25 mg PO BID 07/29/19 07/29/19 Magnesium Oxide [Mag-Ox] 400 mg PO DAILY 07/29/19 07/29/19 Polyethylene Glycol 3350 [Miralax] 17 gm PO DAILY 07/29/19 07/29/19 Previous Rx's Medication Instructions Recorded Metoprolol Tartrate [Lopressor] 100 mg PO BID #20 tab 09/19/14 Allergies Allergy/AdvReac Type Severity Reaction Status Date / Time ciprofloxacin [From [facility]] Allergy Unknown Verified 07/29/19 13:52 amiodarone AdvReac VISION Verified 07/29/19 13:52 CHANGES Review of Systems ROS Statement: Those systems with pertinent positive or pertinent negative responses have been documented in the HPI. ROS Other: All systems not noted in ROS Statement are negative. 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 History of Any Multi-Drug Resistant Organisms: None Reported Past Surgical History: Hysterectomy, Pacemaker, Tonsillectomy Additional Past Surgical History / Comment(s): colonoscopy, bilateral cataract removal with lens implants. Past Anesthesia/Blood Transfusion Reactions: No Reported Reaction Additional Past Anesthesia/Blood Transfusion Reaction / Comment(s): Pt has never recieved blood. Type of Cardiac Device: Permanent Pacemaker Device Placement Date:: 09/15/14 Past Psychological History: No Psychological Hx Reported Smoking Status: Never smoker Past Alcohol Use History: None Reported Past Drug Use History: None Reported - Past Family History Father Family Medical History: Cancer Additional Family Medical History / Comment(s): Father at age 89yrs of prostate cancer that went to the bone. Mother Family Medical History: Hypertension Additional Family Medical History / Comment(s): Mother lived to be 84 yrs old. General Exam Limitations: altered mental status Course Vital Signs 07/29/19 07/29/19 07/29/19 11:23 11:26 13:01 Temperature 99.7 F H 99.7 F H Pulse Rate 60 61 60 Respiratory 18 18 18 Rate Blood Pressure 163/83 143/76 165/83 O2 Sat by Pulse 99 97 98 Oximetry Medical Decision Making - Lab Data Result diagrams: 07/29/19 11:40 07/29/19 11:40 Lab Results 07/29/19 07/29/19 07/29/19 Range/Units 11:40 11:40 11:40 WBC 8.7 (3.8-10.6) k/uL RBC 4.36 (3.80-5.40) m/uL Hgb 14.3 (11.4-16.0) gm/dL Hct 42.8 (34.0-46.0) % MCV 98.2 (80.0-100.0) fL MCH 32.7 (25.0-35.0) pg MCHC 33.3 (31.0-37.0) g/dL RDW 12.4 (11.5-15.5) % Plt Count 317 (150-450) k/uL Neutrophils % 79 % Lymphocytes % 14 % Monocytes % 4 % Eosinophils % 1 % Basophils % 0 % Neutrophils # 6.9 (1.3-7.7) k/uL Lymphocytes # 1.2 (1.0-4.8) k/uL Monocytes # 0.3 (0-1.0) k/uL Eosinophils # 0.1 (0-0.7) k/uL Basophils # 0.0 (0-0.2) k/uL PT (9.0-12.0) sec INR (<1.2) APTT (22.0-30.0) sec Sodium 133 L (137-145) mmol/L Potassium 4.6 (3.5-5.1) mmol/L Chloride 99 (98-107) mmol/L Carbon Dioxide 22 (22-30) mmol/L Anion Gap 12 mmol/L BUN 12 (7-17) mg/dL Creatinine 0.63 (0.52-1.04) mg/dL Est GFR (CKD-EPI)AfAm >90 (>60 ml/min/1.73 sqM) Est GFR (CKD-EPI)NonAf 81 (>60 ml/min/1.73 sqM) Glucose 168 H (74-99) mg/dL Plasma Lactic Acid Telly 1.5 (0.7-2.0) mmol/L Calcium 9.3 (8.4-10.2) mg/dL Magnesium 2.0 (1.6-2.3) mg/dL Ammonia <9 (<30) umol/L Troponin I (0.000-0.034) ng/mL Urine Color Urine Appearance (Clear) Urine pH (5.0-8.0) Ur Specific [place] (1.001-1.035) Urine Protein (Negative) Urine Glucose (UA) (Negative) Urine Ketones (Negative) Urine Blood (Negative) Urine Nitrite (Negative) Urine Bilirubin (Negative) Urine Urobilinogen (<2.0) mg/dL Ur Leukocyte Esterase (Negative) Urine RBC (0-5) /hpf Urine WBC (0-5) /hpf Ur Squamous Epith Cells (0-4) /hpf Urine Bacteria (None) /hpf Hyaline Casts (0-2) /lpf Urine Mucus (None) /hpf Influenza Type A RNA (Not Detectd) Influenza Type B (PCR) (Not Detectd) 07/29/19 07/29/19 07/29/19 Range/Units 11:40 11:40 11:40 WBC (3.8-10.6) k/uL RBC (3.80-5.40) m/uL Hgb (11.4-16.0) gm/dL Hct (34.0-46.0) % MCV (80.0-100.0) fL MCH (25.0-35.0) pg MCHC (31.0-37.0) g/dL RDW (11.5-15.5) % Plt Count (150-450) k/uL Neutrophils % % Lymphocytes % % Monocytes % % Eosinophils % % Basophils % % Neutrophils # (1.3-7.7) k/uL Lymphocytes # (1.0-4.8) k/uL Monocytes # (0-1.0) k/uL Eosinophils # (0-0.7) k/uL Basophils # (0-0.2) k/uL PT 21.3 H (9.0-12.0) sec INR 2.2 H (<1.2) APTT 33.4 H (22.0-30.0) sec Sodium (137-145) mmol/L Potassium (3.5-5.1) mmol/L Chloride (98-107) mmol/L Carbon Dioxide (22-30) mmol/L Anion Gap mmol/L BUN (7-17) mg/dL Creatinine (0.52-1.04) mg/dL Est GFR (CKD-EPI)AfAm (>60 ml/min/1.73 sqM) Est GFR (CKD-EPI)NonAf (>60 ml/min/1.73 sqM) Glucose (74-99) mg/dL Plasma Lactic Acid Telly (0.7-2.0) mmol/L Calcium (8.4-10.2) mg/dL Magnesium (1.6-2.3) mg/dL Ammonia (<30) umol/L Troponin I <0.012 (0.000-0.034) ng/mL Urine Color Urine Appearance (Clear) Urine pH (5.0-8.0) Ur Specific [place] (1.001-1.035) Urine Protein (Negative) Urine Glucose (UA) (Negative) Urine Ketones (Negative) Urine Blood (Negative) Urine Nitrite (Negative) Urine Bilirubin (Negative) Urine Urobilinogen (<2.0) mg/dL Ur Leukocyte Esterase (Negative) Urine RBC (0-5) /hpf Urine WBC (0-5) /hpf Ur Squamous Epith Cells (0-4) /hpf Urine Bacteria (None) /hpf Hyaline Casts (0-2) /lpf Urine Mucus (None) /hpf Influenza Type A RNA Not Detected (Not Detectd) Influenza Type B (PCR) Not Detected (Not Detectd) 07/29/19 Range/Units 12:35 WBC (3.8-10.6) k/uL RBC (3.80-5.40) m/uL Hgb (11.4-16.0) gm/dL Hct (34.0-46.0) % MCV (80.0-100.0) fL MCH (25.0-35.0) pg MCHC (31.0-37.0) g/dL RDW (11.5-15.5) % Plt Count (150-450) k/uL Neutrophils % % Lymphocytes % % Monocytes % % Eosinophils % % Basophils % % Neutrophils # (1.3-7.7) k/uL Lymphocytes # (1.0-4.8) k/uL Monocytes # (0-1.0) k/uL Eosinophils # (0-0.7) k/uL Basophils # (0-0.2) k/uL PT (9.0-12.0) sec INR (<1.2) APTT (22.0-30.0) sec Sodium (137-145) mmol/L Potassium (3.5-5.1) mmol/L Chloride (98-107) mmol/L Carbon Dioxide (22-30) mmol/L Anion Gap mmol/L BUN (7-17) mg/dL Creatinine (0.52-1.04) mg/dL Est GFR (CKD-EPI)AfAm (>60 ml/min/1.73 sqM) Est GFR (CKD-EPI)NonAf (>60 ml/min/1.73 sqM) Glucose (74-99) mg/dL Plasma Lactic Acid Telly (0.7-2.0) mmol/L Calcium (8.4-10.2) mg/dL Magnesium (1.6-2.3) mg/dL Ammonia (<30) umol/L Troponin I (0.000-0.034) ng/mL Urine Color Yellow Urine Appearance Clear (Clear) Urine pH 6.5 (5.0-8.0) Ur Specific [place] 1.018 (1.001-1.035) Urine Protein Trace H (Negative) Urine Glucose (UA) Negative (Negative) Urine Ketones Negative (Negative) Urine Blood Small H (Negative) Urine Nitrite Negative (Negative) Urine Bilirubin Negative (Negative) Urine Urobilinogen <2.0 (<2.0) mg/dL Ur Leukocyte Esterase Negative (Negative) Urine RBC 24 H (0-5) /hpf Urine WBC 37 H (0-5) /hpf Ur Squamous Epith Cells 2 (0-4) /hpf Urine Bacteria Rare H (None) /hpf Hyaline Casts 1 (0-2) /lpf Urine Mucus Few H (None) /hpf Influenza Type A RNA (Not Detectd) Influenza Type B (PCR) (Not Detectd) Disposition Clinical Impression: Altered mental status Disposition: ADMITTED IP TO THIS HOSP Condition: Fair Referrals: Mitchell Davalos MD [Primary Care Provider] - 1-2 days Decision Time: 14:13
--- NOTE | 2019-07-29 12:28 | CT ---
EXAMINATION TYPE: CT brain wo con DATE OF EXAM: 07/29/2019 COMPARISON: 11/21/2016 HISTORY: Altered mental status CT DLP: 1099.4 mGycm Automated exposure control for dose reduction was used. FINDINGS: There is no evidence of acute intracranial hemorrhage, acute ischemic changes, mass, mass-effect, or extra- axial fluid collection. There is no effacement of cerebral sulci or basal subarachnoid cistern s. There is no hydrocephalus. There is no midline shift. Abnormal attenuation the external capsule an d basal ganglia bilaterally stable compatible with remote ischemia. There are generalized degenerative change. Nonspecific low-attenuation the white matter. Most likely in the bases remote ischemia. Paranasal sinuses and mastoid air cells appear well pneumatized. Orbits and globes are intact. Intracranial atherosclerotic changes noted. Hyperostosis of the calvarium not ed. IMPRESSION: DEGENERATIVE AND NONSPECIFIC WHITE MATTER CHANGES MOST TYPICAL REMOTE ISCHEMIA. NO ACUTE HEMORRHAGE. IF THERE IS CONCERN FOR ACUTE ISCHEMIA CORRELATE WITH MRI CLINICALLY WARRANTED.
[2019-07-29 12:30] LABS: African American GFR (CKD) >90 (>60 ml/min/1.73 sqM); Anion Gap 12 mmol/L; Blood Urea Nitrogen 12 mg/dL (7-17); Calcium 9.3 mg/dL (8.4-10.2); Carbon Dioxide 22 mmol/L (22-30); Chloride 99 mmol/L (98-107); Glucose 168 mg/dL (74-99); Non-African American GFR(CKD) 81 (>60 ml/min/1.73 sqM); Potassium 4.6 mmol/L (3.5-5.1); Sodium 133 mmol/L (137-145)
[2019-07-29 12:32] LABS: INR 2.2 (<1.2); Partial Thromboplastin Time 33.4 sec (22.0-30.0); Prothrombin Time 21.3 sec (9.0-12.0)
--- NOTE | 2019-07-29 12:54 | XR ---
EXAMINATION TYPE: XR chest 1V portable DATE OF EXAM: 07/29/2019 COMPARISON: 03/14/2019 HISTORY: Altered mental status TECHNIQUE: Single frontal view of the chest is obtained. FINDINGS: There is no focal air space opacity, pleural effusion, or pneumothorax seen. The cardiac silhouette size is within normal limits. The osseous structures are intact. Evidence of previous ve rtebroplasty noted. Atherosclerotic change aorta. Cardiac device seen with diffuse osteopenia and art hropathy shoulders. No overt failure or focal consolidation. No pleural effusion. IMPRESSION: No acute process.
[2019-07-29 13:14] LABS: Ammonia <9 umol/L (<30); Lactic Acid, Venous 1.5 mmol/L (0.7-2.0)
[2019-07-29 13:15] LABS: Appearance,Urine Clear (Clear); Bacteria,Urine Rare /hpf; Bilirubin,Urine Negative (Negative); Blood,Urine Small (Negative); Color,Urine Yellow; Glucose,Urine (UA) Negative (Negative); Hyaline Casts,Urine 1 /lpf (0-2); Ketones,Urine Negative (Negative); Leukocyte Esterase,Urine Negative (Negative); Mucus,Urine Few /hpf; Nitrite,Urine Negative (Negative); PH, Urine 6.5 (5.0-8.0); Protein,Urine Trace (Negative); RBC,Urine 24 /hpf (0-5); Specific Gravity,Urine 1.018 (1.001-1.035); Squamous Epithelial Cell,Urine 2 /hpf (0-4); Urobilinogen,Urine <2.0 mg/dL (<2.0); WBC,Urine 37 /hpf (0-5)
[2019-07-29] MEDS ORDERED: cefTRIAXone IN SWFI 1,000 MG/10 ML SYRINGE IVP STA (13:34)
[2019-07-29] MEDS ORDERED: NALOXONE 0.4 MG/ML 1 ML VIAL IV PRN (14:09)
[2019-07-29] MEDS ORDERED: ACETAMINOPHEN TAB 325 MG TAB PO PRN (14:09)
[2019-07-29] MEDS ORDERED: ASPIRIN 81 MG PO STA (14:11)
[2019-07-29] MEDS ORDERED: SODIUM CHLORIDE 0.9% 1,000 ML IV SCH (14:15)
--- NOTE | 2019-07-29 15:39 | P.HPIM ---
History of Present Illness H&P Date: 07/29/19 Patient is an 89-year-old female with a PMH of A. fib (on Coumadin), tachy-joelle syndrome s/p PPM, hypertension, and hyperlipidemia who presented to the ED, brought in by her son, for confusion. The patient lives by herself and reports that her son who lives close by checks in on her every day. The son was not at the bedside during the evaluation and history was partially obtained from ED documentation. The son had reported that when he went to check in on her this morning, he noticed that she appeared more confused. He reported that she has had similar episodes in the past which were attributed to UTIs or dehydration. He had reported no prior history of dementia. During the interview, the patient was alert and oriented 2. She was able to answer basic questions, though was unable to state why she is in the hospital. She denied active complaints. She denied dysuria, fever, chills, headache, weakness, numbness, neck pain, cough, or abdominal pain. She also denied chest pain, shortness of breath, nausea, or vomiting. She underwent an extensive evaluation in the emergency room the brain CT showing nonspecific white matter changes most typical of remote ischemia within no other acute ischemic changes noted. Chest x-ray was unremarkable. EKG revealed sinus bradycardia with a left bundle branch block. Laboratory evaluation revealed a UA consistent with UTI, troponin less than 0.012, WBC count 8.7, hemoglobin 14.3, platelets 317, INR 2.2, sodium 133, potassium 4.6, BUN 12, creatinine 0.63. Influenza a and B were negative. The patient was given aspirin 325 mg and ceftriaxone and was admitted for further management for altered mental status likely secondary to UTI. Review of Systems Pertinent positives and negatives as discussed in HPI, a complete review of systems was performed and all other systems are negative. 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 History of Any Multi-Drug Resistant Organisms: None Reported Past Surgical History: Hysterectomy, Pacemaker, Tonsillectomy Additional Past Surgical History / Comment(s): colonoscopy, bilateral cataract removal with lens implants. Past Anesthesia/Blood Transfusion Reactions: No Reported Reaction Additional Past Anesthesia/Blood Transfusion Reaction / Comment(s): Pt has never recieved blood. Type of Cardiac Device: Permanent Pacemaker Device Placement Date:: 09/15/14 Past Psychological History: No Psychological Hx Reported Smoking Status: Never smoker Past Alcohol Use History: None Reported Past Drug Use History: None Reported - Past Family History Father Family Medical History: Cancer Additional Family Medical History / Comment(s): Father at age 89yrs of prostate cancer that went to the bone. Mother Family Medical History: Hypertension Additional Family Medical History / Comment(s): Mother lived to be 84 yrs old. Medications and Allergies Home Medications Medication Instructions Recorded Confirmed Type Aspirin EC [Ecotrin Low Dose] 81 mg PO DAILY 11/26/13 07/29/19 History Multivitamins, Thera [Multivitamin 1 tab PO DAILY 11/26/13 07/29/19 History (formulary)] Isosorbide Mononitrate ER [Imdur] 30 mg PO DAILY 09/13/14 07/29/19 History Lovastatin [Mevacor] 10 mg PO HS 09/13/14 07/29/19 History Metoprolol Tartrate [Lopressor] 100 mg PO BID #20 tab 09/19/14 07/29/19 Rx Acetaminophen Tab [Tylenol] 325 - 650 mg PO Q6H PRN 06/18/16 07/29/19 History Clotrimazole Cream [Lotrimin Cream] 1 applic TOPICAL DAILY PRN 06/18/16 07/29/19 History Nitroglycerin Oint Tube [Nitro-Bid 1 inch TOPICAL DAILY PRN 06/18/16 07/29/19 History Oint Tube] Nitroglycerin Sl Tabs [Nitrostat] 0.4 mg SUBLINGUAL Q5M PRN 06/18/16 07/29/19 History Psyllium Husk [Psyllium] 1.2 gm PO QAM 06/18/16 07/29/19 History amLODIPine [Norvasc] 2.5 mg PO BID 06/18/16 07/29/19 History Docusate [Colace] 100 mg PO DAILY 06/23/17 07/29/19 History [place]-3 Fatty Acids/Fish Oil [Fish 1 cap PO DAILY 06/23/17 07/29/19 History Oil 1,000 mg Softgel] Warfarin Sodium [Coumadin] 4 mg PO DAILY@1700 06/23/17 07/29/19 History Losartan [Cozaar] 25 mg PO BID 07/29/19 07/29/19 History Magnesium Oxide [Mag-Ox] 400 mg PO DAILY 07/29/19 07/29/19 History Polyethylene Glycol 3350 [Miralax] 17 gm PO DAILY 07/29/19 07/29/19 History Allergies Allergy/AdvReac Type Severity Reaction Status Date / Time ciprofloxacin [From [facility]] Allergy Unknown Verified 07/29/19 13:52 amiodarone AdvReac VISION Verified 07/29/19 13:52 CHANGES Physical Exam Vitals: Vital Signs Temp Pulse Resp BP Pulse Ox 07/29/19 13:01 60 18 165/83 98 07/29/19 11:26 99.7 F H 61 18 143/76 97 07/29/19 11:23 99.7 F H 60 18 163/83 99 Intake and Output 07/29/19 07/29/19 07/29/19 06:59 14:59 22:59 Other: Weight 72.575 kg General: non toxic, no distress, appears at stated age, normal weight Derm: no unusual rashes/lesions no unusual ecchymoses, warm, dry Head: atraumatic, normocephalic, symmetric Eyes: EOMI, no lid lag, anicteric sclera, pupils equal round reactive to light ENT: Nose and ears atraumatic, no thrush, no pharyngeal erythema Neck: No thyromegaly, no cervical lymphadenopathy, trachea midline, supple Mouth: no lip lesion, mucus membranes moist Cardiovascular: S1S2 reg, no murmur, positive posterior tibial pulse bilateral, no edema, capillary refill less than 2 seconds Lungs: CTA bilateral, no rhonchi, no rales , no accessory muscle use Abdominal: soft, nontender to palpation, no suprapubic tenderness, no guarding, no appreciable organomegaly, normal bowel sounds Ext: no gross muscle atrophy, muscle strength 5 out of 5 in all 4 extremities grossly, no contractures, Neuro: CN II-XI grossly intact, light touch intact all 4 extremities, finger to nose within normal limits, no facial asymmetry, negative Kernig's and Brudzinski, Babinski downwards Psych: Alert, oriented, appropriate affect Results CBC & Chem 7: 07/29/19 11:40 07/29/19 11:40 Labs: Abnormal Lab Results - Last 24 Hours (Table) 07/29/19 07/29/19 07/29/19 Range/Units 11:40 11:40 12:35 PT 21.3 H (9.0-12.0) sec INR 2.2 H (<1.2) APTT 33.4 H (22.0-30.0) sec Sodium 133 L (137-145) mmol/L Glucose 168 H (74-99) mg/dL Urine Protein Trace H (Negative) Urine Blood Small H (Negative) Urine RBC 24 H (0-5) /hpf Urine WBC 37 H (0-5) /hpf Urine Bacteria Rare H (None) /hpf Urine Mucus Few H (None) /hpf Assessment and Plan Plan: Altered mental status, likely secondary to UTI -Continue with ceftriaxone 1 g daily -Urine and blood cultures -Hold off on neurology consult at this time -Neuro checks every 4 hourly -Gentle hydration Mild hyponatremia -Monitor BMP for now Chronic conditions: Paroxysmal A. fib, hypertension, hyperlipidemia -Continue with home meds, Coumadin, antihypertensives, lovastatin DVT prophylaxis -Coumadin The patient is admitted with an anticipated less than 2 midnight stay for e valuation of UTI CODE STATUS: Full Code Discussed with: Patient Anticipated discharge date: 1-[address]: Home A total of 35 minutes was spent on the care of this complex patient more than 50% of the time was spent in counseling and care coordination.
[2019-07-29] MEDS ORDERED: WARFARIN 2 MG TAB PO SCH (17:00)
[2019-07-29] MEDS: amLODIPine 2.5 MG TAB PO SCH (20:41)
[2019-07-29] MEDS: LOSARTAN 25 MG TAB PO SCH (20:42)
[2019-07-29] MEDS: METOPROLOL TARTRATE 50 MG TAB PO SCH (20:44)
[2019-07-29] MEDS ORDERED: ATORVASTATIN 10 MG TAB PO SCH (21:00)
[2019-07-30 07:27] VITALS: BP 173/89; PULSE 67; RESP 16; TEMP 98.2
[2019-07-30] MEDS: amLODIPine 2.5 MG TAB PO SCH (07:28)
[2019-07-30] MEDS: LOSARTAN 25 MG TAB PO SCH (07:28)
[2019-07-30] MEDS: METOPROLOL TARTRATE 50 MG TAB PO SCH (07:28)
[2019-07-30 08:27] LABS: INR 2.3 (<1.2); Prothrombin Time 22.2 sec (9.0-12.0)
[2019-07-30] MEDS ORDERED: ISOSORBIDE MONONITRATE ER 30 MG TAB.ER.24H PO SCH (09:00)
[2019-07-30] MEDS ORDERED: POLYETHYLENE GLYCOL 3350 17 GM POWD.PACK PO SCH (09:00)
[2019-07-30] MEDS ORDERED: POLYETHYLENE GLYCOL 17 GM PO SCH (09:00)
[2019-07-30] MEDS ORDERED: DOCUSATE 100 MG CAP PO SCH (09:00)
[2019-07-30] MEDS ORDERED: ASPIRIN 81 MG PO SCH (09:00)
--- NOTE | 2019-07-30 10:33 | P.DS ---
Providers Date of admission: 07/29/19 14:10 Expected date of discharge: 07/30/19 Attending physician: Joya Brown MD Primary care physician: [facility] Course: Patient is an 89-year-old female with a PMH of A. fib (on Coumadin), tachy-joelle syndrome s/p PPM, hypertension, and hyperlipidemia who presented to the ED, brought in by her son, for confusion. The patient lives by herself and reports that her son who lives close by checks in on her every day. The son was not at the bedside during the evaluation and history was partially obtained from ED documentation. The son had reported that when he went to check in on the mor michael of presentation, he noticed that she appeared more confused. He reported that she has had similar episodes in the past which were attributed to UTIs or dehydration. He had reported no prior history of dementia. During the interview, the patient was alert and oriented 2. She was able to answer basic questions, though was unable to state why she was in the hospital. She denied active complaints. She denied dysuria, fever, chills, headache, weakness, numbness, neck pain, cough, or abdominal pain. She also denied chest pain, shortness of breath, nausea, or vomiting. She underwent an extensive evaluation in the emergency room the brain CT showing nonspecific white matter changes most typical of remote ischemia within no other acute ischemic changes noted. Chest x-ray was unremarkable. EKG revealed sinus bradycardia with a left bundle branch block. Laboratory evaluation revealed a UA consistent with UTI, troponin less than 0.012, WBC count 8.7, hemoglobin 14.3, platelets 317, INR 2.2, sodium 133, potassium 4.6, BUN 12, creatinine 0.63. Influenza a and B were negative. The patient was given aspirin 325 mg and ceftriaxone and was admitted for further management for altered mental status likely secondary to UTI. The patient was seen and evaluated at the bedside on the day of discharge. The patient was alert and oriented 3 and was eager to be discharged. She reported that she previously has had UTIs which has caused her to get confused. She reported that she is very highly functional at home and is able to do most of her ADLs by herself. She denied dysuria, hematuria, fever, chills, nausea, or vomiting. The patient was advised to continue taking her oral antibiotics and that she may need to be switched to a different agent if her culture results show resistance. The patient was also strongly advised to follow-up with her primary care physician within a few days following discharge. The patient was in agreement and is ready and stable to be discharged home. Physical Examination General: Non-toxic, in no acute distress, appears stated age, normal weight HEENT: NC/AT, anicteric sclerae, moist conjunctiva, no lid-lag, PERRLA Cardiovascular: S1/S2 wnl, no murmurs, rubs, or gallops Lungs: Clear to auscultation, normal respiratory effort, no accessory muscle use Abdominal: Soft, non-tender, non-distended, no guarding, rebound, or rigidity Skin: Warm, dry Extremities: No edema or contractures Psychiatric: Alert and oriented to person, place and time, appropriate affect Neuro: CN II-XII grossly intact, Strength 5/5 in all 4 extremities, Speech intact, Sensation to light touch grossly intact throughout Discharge diagnosis: UTI; altered mental status likely secondary to metabolic encephalopathy from UTI; mild hyponatremia; paroxysmal atrial fibrillation; hypertension; hyperlipidemia A total of 35 minutes of time were spent preparing this complex discharge summary. Patient Condition at Discharge: Stable Plan - Discharge Summary New Discharge Prescriptions: New Amoxic-Pot Clav 500-125 mg [Augmentin 500-125 mg] 1 tab PO Q12HR #12 tab Continue Aspirin EC [Ecotrin Low Dose] 81 mg PO DAILY Multivitamins, Thera [Multivitamin (formulary)] 1 tab PO DAILY Lovastatin [Mevacor] 10 mg PO HS Isosorbide Mononitrate ER [Imdur] 30 mg PO DAILY Metoprolol Tartrate [Lopressor] 100 mg PO BID #20 tab Acetaminophen Tab [Tylenol] 325 - 650 mg PO Q6H PRN PRN Reason: Pain Psyllium Husk [Psyllium] 1.2 gm PO QAM Nitroglycerin Sl Tabs [Nitrostat] 0.4 mg SUBLINGUAL Q5M PRN PRN Reason: Chest Pain Nitroglycerin Oint Tube [Nitro-Bid Oint Tube] 1 inch TOPICAL DAILY PRN PRN Reason: RAYNAUDS Clotrimazole Cream [Lotrimin Cream] 1 applic TOPICAL DAILY PRN PRN Reason: hands amLODIPine [Norvasc] 2.5 mg PO BID [place]-3 Fatty Acids/Fish Oil [Fish Oil 1,000 mg Softgel] 1 cap PO DAILY Docusate [Colace] 100 mg PO DAILY Warfarin Sodium [Coumadin] 4 mg PO DAILY@1700 Losartan [Cozaar] 25 mg PO BID Magnesium Oxide [Mag-Ox] 400 mg PO DAILY Polyethylene Glycol 3350 [Miralax] 17 gm PO DAILY Discharge Medication List Aspirin EC [Ecotrin Low Dose] 81 mg PO DAILY 11/26/13 [History] Multivitamins, Thera [Multivitamin (formulary)] 1 tab PO DAILY 11/26/13 [History] Isosorbide Mononitrate ER [Imdur] 30 mg PO DAILY 09/13/14 [History] Lovastatin [Mevacor] 10 mg PO HS 09/13/14 [History] Metoprolol Tartrate [Lopressor] 100 mg PO BID #20 tab 09/19/14 [Rx] Acetaminophen Tab [Tylenol] 325 - 650 mg PO Q6H PRN 06/18/16 [History] Clotrimazole Cream [Lotrimin Cream] 1 applic TOPICAL DAILY PRN 06/18/16 [Histor y] Nitroglycerin Oint Tube [Nitro-Bid Oint Tube] 1 inch TOPICAL DAILY PRN 06/18/16 [History] Nitroglycerin Sl Tabs [Nitrostat] 0.4 mg SUBLINGUAL Q5M PRN 06/18/16 [History] Psyllium Husk [Psyllium] 1.2 gm PO QAM 06/18/16 [History] amLODIPine [Norvasc] 2.5 mg PO BID 06/18/16 [History] Docusate [Colace] 100 mg PO DAILY 06/23/17 [History] [place]-3 Fatty Acids/Fish Oil [Fish Oil 1,000 mg Softgel] 1 cap PO DAILY 06/23/17 [History] Warfarin Sodium [Coumadin] 4 mg PO DAILY@1700 06/23/17 [History] Losartan [Cozaar] 25 mg PO BID 07/29/19 [History] Magnesium Oxide [Mag-Ox] 400 mg PO DAILY 07/29/19 [History] Polyethylene Glycol 3350 [Miralax] 17 gm PO DAILY 07/29/19 [History] Amoxic-Pot Clav 500-125 mg [Augmentin 500-125 mg] 1 tab PO Q12HR #12 tab 07/30/19 [Rx] Follow up Appointment(s)/Referral(s): Mitchell Davalos MD [Primary Care Provider] - 08/02/19 10:45 am Patient Instructions/Handouts: Urinary Tract Infection in Women (DC) Discharge Disposition: HOME SELF-CARE
[2019-08-04 12:22] LABS: Glucose,Whole Blood 161 mg/dL (75-99)
== END 2019-07-30 12:31 | disposition home or self-care (01) ==
LOC: EC 11:15 → 4SSUR 14:10
PROVIDERS: ADMIT Internal Medicine; ATTEND Internal Medicine
DX: N39.0 Urinary tract infection, site not specified (principal); R41.82 Altered mental status, unspecified; E87.1 Hypo-osmolality and hyponatremia; I48.0 Paroxysmal atrial fibrillation; I10 Essential (primary) hypertension; I49.5 Sick sinus syndrome; Z95.0 Presence of cardiac pacemaker; Z86.73 Personal history of transient ischemic attack (TIA), and cerebral infarction without residual deficits; E78.5 Hyperlipidemia, unspecified; Z90.710 Acquired absence of both cervix and uterus; Z90.89 Acquired absence of other organs; Z98.42 Cataract extraction status, left eye; Z98.41 Cataract extraction status, right eye; Z96.1 Presence of intraocular lens; Z80.42 Family history of malignant neoplasm of prostate; Z82.49 Family history of ischemic heart disease and other diseases of the circulatory system; Z88.1 Allergy status to other antibiotic agents; Z88.8 Allergy status to other drugs, medicaments and biological substances; Z79.01 Long term (current) use of anticoagulants; Z79.82 Long term (current) use of aspirin; Z79.899 Other long term (current) drug therapy
CPT/HCPCS: 96365; 96376; 99285; 36415; 93005; 80048; 82140; 83605; 83735; 84484; 85025; 85610 ×2; 85730; 81001; 87040; 87086; 87077; 87186; 87502; 71045; 70450; G0378 ×2; J0696 ×2

== ENCOUNTER 2020-08-21 11:27 | Emergency (ER) | payer MEDICARE, BC ==
[2020-08-21 11:32] VITALS: RESP 18
[2020-08-21] MEDS ORDERED: SODIUM CHLORIDE 0.9% 1,000 ML IV STA (11:42)
[2020-08-21 12:24] LABS: Appearance,Urine Turbid (Clear); Bilirubin,Urine Negative (Negative); Blood,Urine Large (Negative); Color,Urine Red; Glucose,Urine (UA) Negative (Negative); Ketones,Urine Negative (Negative); Leukocyte Esterase,Urine Large (Negative); Nitrite,Urine Negative (Negative); PH, Urine 7.5 (5.0-8.0); Protein,Urine 2+ (Negative); RBC,Urine >182 /hpf (0-5); Specific Gravity,Urine 1.016 (1.001-1.035); Urobilinogen,Urine <2.0 mg/dL (<2.0); WBC,Urine >182 /hpf (0-5)
--- NOTE | 2020-08-21 12:25 | ED ---
Female Urogenital HPI - General Chief complaint: Urogenital Stated complaint: blood in urine Time Seen by Provider: 08/21/20 11:35 Source: EMS Mode of arrival: EMS Limitations: no limitations - History of Present Illness Initial comments: 89-year-old female presents to emergency Department with a chief complaint of blood in the urine. Patient reports she is noticed that this morning around 9 AM. Patient reports she went to the bathroom to clean herself off and found to the more blood. Patient reports increased obstructive urinary symptoms along w ith dysuria and increased frequency but denies any urgency. She denies any abdominal pain. Does have history of chronic back pain so states that is not different than usual. She denies any fevers or chills. Denies any chest pain or shortness of breath. Patient states typically she does not drink plenty of water. She denies any nausea vomiting diarrhea. Patient has had a hysterectomy with bilateral salpingo-oophorectomy many decades ago. - Related Data Home Medications Medication Instructions Recorded Confirmed Aspirin EC [Ecotrin Low Dose] 81 mg PO DAILY 11/26/13 08/21/20 Multivitamins, Thera [Multivitamin 1 tab PO DAILY 11/26/13 08/21/20 (formulary)] Isosorbide Mononitrate ER [Imdur] 30 mg PO DAILY 09/13/14 08/21/20 Lovastatin [Mevacor] 10 mg PO HS 09/13/14 08/21/20 Acetaminophen Tab [Tylenol] 325 - 650 mg PO Q6H PRN 06/18/16 08/21/20 Clotrimazole Cream [Lotrimin Cream] 1 applic TOPICAL DAILY PRN 06/18/16 08/21/20 Nitroglycerin Oint Tube [Nitro-Bid 1 inch TOPICAL DAILY PRN 06/18/16 08/21/20 Oint Tube] Nitroglycerin Sl Tabs [Nitrostat] 0.4 mg SL Q5M PRN 06/18/16 08/21/20 Psyllium Husk [Psyllium] 0.8 gm PO DAILY 06/18/16 08/21/20 amLODIPine [Norvasc] 2.5 mg PO BID@1230,2100 06/18/16 08/21/20 Docusate [Colace] 200 mg PO DAILY 06/23/17 08/21/20 [place]-3 Fatty Acids/Fish Oil [Fish 3 cap PO DAILY 06/23/17 08/21/20 Oil 1,000 mg Softgel] Warfarin Sodium [Coumadin] 4 mg PO HS 06/23/17 08/21/20 Losartan [Cozaar] 25 mg PO BID 07/29/19 08/21/20 Magnesium Oxide [Mag-Ox] 400 mg PO DAILY@1400 07/29/19 08/21/20 Polyethylene Glycol 3350 [Miralax] 17 gm PO DAILY@1000 07/29/19 08/21/20 Ascorbic Acid [Vitamin C] 500 mg PO DAILY 08/21/20 08/21/20 Previous Rx's Medication Instructions Recorded Metoprolol Tartrate [Lopressor] 100 mg PO BID #20 tab 09/19/14 Cephalexin [Keflex] 500 mg PO Q6HR #40 cap 08/21/20 Sulfamethox-Tmp 800-160Mg [Bactrim 1 each PO Q12HR #20 tab 08/21/20 Ds] Allergies Allergy/AdvReac Type Severity Reaction Status Date / Time ciprofloxacin [From Cipro HC] Allergy Unknown Verified 08/21/20 12:11 amiodarone AdvReac VISION Verified 08/21/20 12:11 CHANGES Review of Systems ROS Statement: Those systems with pertinent positive or pertinent negative responses have been documented in the HPI. ROS Other: All systems not noted in ROS Statement are negative. 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 History of Any Multi-Drug Resistant Organisms: None Reported Past Surgical History: Hysterectomy, Pacemaker, Tonsillectomy Additional Past Surgical History / Comment(s): colonoscopy, bilateral cataract removal with lens implants. Past Anesthesia/Blood Transfusion Reactions: No Reported Reaction Additional Past Anesthesia/Blood Transfusion Reaction / Comment(s): Pt has never recieved blood. Type of Cardiac Device: Permanent Pacemaker Device Placement Date:: 09/15/14 Past Psychological History: No Psychological Hx Reported Smoking Status: Never smoker Past Alcohol Use History: None Reported Past Drug Use History: None Reported - Past Family History Father Family Medical History: Cancer Additional Family Medical History / Comment(s): Father at age 89yrs of prostate cancer that went to the bone. Mother Family Medical History: Hypertension Additional Family Medical History / Comment(s): Mother lived to be 84 yrs old. General Exam Limitations: no limitations General appearance: alert, in no apparent distress Head exam: Present: atraumatic, normal inspection Eye exam: Present: normal appearance, PERRL, EOMI Pupils: Present: normal accommodation ENT exam: Present: normal exam, normal oropharynx, mucous membranes moist Neck exam: Present: normal inspection, full ROM. Absent: tenderness Respiratory exam: Present: normal lung sounds bilaterally. Absent: respiratory distress Cardiovascular Exam: Present: regular rate, normal rhythm, normal heart sounds GI/Abdominal exam: Present: soft. Absent: distended, tenderness, guarding, rebound Extremities exam: Present: normal inspection, full ROM, normal capillary refill. Absent: tenderness Back exam: Present: normal inspection, full ROM. Absent: tenderness, CVA te nderness (R), CVA tenderness (L) Neurological exam: Present: alert, oriented X3 Psychiatric exam: Present: normal affect, normal mood Skin exam: Present: warm, dry, intact, normal color Course Vital Signs 08/21/20 08/21/20 11:28 12:54 Temperature 97.4 F L Pulse Rate 65 98 Respiratory 18 18 Rate Blood Pressure 179/97 161/91 O2 Sat by Pulse 96 97 Oximetry Medical Decision Making - Medical Decision Making 89-year-old female presents to the emergency department with a chief complaint of hematuria. On physical examination, no CVA tenderness. Patient is well- appearing. She does have UTI symptoms. CBC CMP unremarkable. UA positive for urinary tract infection. Urine culture pending. She also appears to have hematuria but no nitrates. Urine culture pending. Patient will be treated for UTI with possible hemorrhagic cystitis. CT of abdomen and pelvis reveals no acute findings. Patient has had no recent Rg catheters. Patient started on 2 g of Rocephin and discharged on Keflex. Return parameters discussed with patient was under standing agreeable. Case discussed with Dr. Smith. - Lab Data Result diagrams: 08/21/20 12:13 08/21/20 12:13 Lab Results 08/21/20 08/21/20 08/21/20 Range/Units 12:05 12:13 12:13 WBC 9.6 (3.8-10.6) k/uL RBC 4.40 (3.80-5.40) m/uL Hgb 14.3 (11.4-16.0) gm/dL Hct 43.0 (34.0-46.0) % MCV 97.8 (80.0-100.0) fL MCH 32.4 (25.0-35.0) pg MCHC 33.2 (31.0-37.0) g/dL RDW 12.7 (11.5-15.5) % Plt Count 333 (150-450) k/uL MPV 7.0 Neutrophils % 76 % Lymphocytes % 14 % Monocytes % 6 % Eosinophils % 2 % Basophils % 1 % Neutrophils # 7.3 (1.3-7.7) k/uL Lymphocytes # 1.4 (1.0-4.8) k/uL Monocytes # 0.6 (0-1.0) k/uL Eosinophils # 0.2 (0-0.7) k/uL Basophils # 0.1 (0-0.2) k/uL Sodium 134 L (137-145) mmol/L Potassium 4.6 (3.5-5.1) mmol/L Chloride 103 (98-107) mmol/L Carbon Dioxide 26 (22-30) mmol/L Anion Gap 5 mmol/L BUN 13 (7-17) mg/dL Creatinine 0.74 (0.52-1.04) mg/dL Est GFR (CKD-EPI)AfAm 84 (>60 ml/min/1.73 sqM) Est GFR (CKD-EPI)NonAf 73 (>60 ml/min/1.73 sqM) Glucose 103 H (74-99) mg/dL Calcium 9.1 (8.4-10.2) mg/dL Total Bilirubin 0.7 (0.2-1.3) mg/dL AST 27 (14-36) U/L ALT 18 (4-34) U/L Alkaline Phosphatase 76 (38-126) U/L Total Protein 6.9 (6.3-8.2) g/dL Albumin 3.9 (3.5-5.0) g/dL Urine Color Red Urine Appearance Turbid H (Clear) Urine pH 7.5 (5.0-8.0) Ur Specific [place] 1.016 (1.001-1.035) Urine Protein 2+ H (Negative) Urine Glucose (UA) Negative (Negative) Urine Ketones Negative (Negative) Urine Blood Large H (Negative) Urine Nitrite Negative (Negative) Urine Bilirubin Negative (Negative) Urine Urobilinogen <2.0 (<2.0) mg/dL Ur Leukocyte Esterase Large H (Negative) Urine RBC >182 H (0-5) /hpf Urine WBC >182 H (0-5) /hpf Disposition Clinical Impression: Urinary tract infection, Hemorrhagic cystitis Disposition: HOME SELF-CARE Condition: Stable Additional Instructions: Take prescribed medication as directed. Follow-up with your primary care physician. Drink plenty of fluids. Please return to the Emergency Department if symptoms worsen or any other concerns. Prescriptions: Sulfamethox-Tmp 800-160Mg [Bactrim Ds] 1 each PO Q12HR #20 tab Cephalexin [Keflex] 500 mg PO Q6HR #40 cap Is patient prescribed a controlled substance at d/c from ED?: No Referrals: Mitchell Davalos MD [Primary Care Provider] - 1-2 days Time of Disposition: 14:20
[2020-08-21 12:31] LABS: Basophils # (A) 0.1 k/uL (0-0.2); Basophils % (A) 1 %; Eosinophils # (A) 0.2 k/uL (0-0.7); Eosinophils % (A) 2 %; HGB 14.3 gm/dL (11.4-16.0); Lymphocytes # (A) 1.4 k/uL (1.0-4.8); Lymphocytes % (A) 14 %; MCH 32.4 pg (25.0-35.0); MCHC 33.2 g/dL (31.0-37.0); MCV 97.8 fL (80.0-100.0); Monocytes # (A) 0.6 k/uL (0-1.0); Monocytes % (A) 6 %; Neutrophils # (A) 7.3 k/uL (1.3-7.7); Neutrophils % (A) 76 %; Platelet Count 333 k/uL (150-450); RDW 12.7 % (11.5-15.5); WBC 9.6 k/uL (3.8-10.6)
[2020-08-21 12:43] LABS: Albumin 3.9 g/dL (3.5-5.0); Calcium 9.1 mg/dL (8.4-10.2); Potassium 4.6 mmol/L (3.5-5.1); Total Bilirubin 0.7 mg/dL (0.2-1.3); Total Protein 6.9 g/dL (6.3-8.2)
--- NOTE | 2020-08-21 13:34 | CT ---
EXAMINATION TYPE: CT abdomen pelvis wo con DATE OF EXAM: 08/21/2020 COMPARISON: 06/23/2017 HISTORY: Rt flank pain with hematuria CT DLP: 514.6 mGycm Automated exposure control for dose reduction was used. TECHNIQUE: Helical acquisition of images was performed from the lung bases through the pelvis. FINDINGS: LUNG BASES: Heart is markedly enlarged and there are cardiac leads noted. Respiratory motion is seen and underlying COPD with basilar atelectasis favored over pneumonia correlate clinically.. A basilar bronchiectasis. LIVER/GB: No significant abnormality is appreciated. PANCREAS: No significant abnormality is seen. SPLEEN: No significant abnormality is seen. ADRENALS: No significant abnormality is seen. KIDNEYS: No significant abnormality is seen. ADENOPATHY: None visualized. OSSEOUS STRUCTURES: Marked sclerosis involving the sacrum bilaterally. Multilevel degenerative disc disease with grade 1 anterolisthesis L4 on L5 and L3 on L4. Chronic appearing endplate deformities ar e seen at multiple levels and there is multilevel facet arthropathy. Tarlov cysts in the sacrum noted . Arthropathy of the hips. Bilateral spondylolysis of L5. BOWEL: Bowel gas pattern is nonspecific. Limited assessment secondary to lack of contrast. Appendix not seen with certainty. OTHER: Fat-containing periumbilical hernia. No free fluid or free air. There is a small amount of air within the bladder. IMPRESSION: Limited exam due to significant motion artifact 1. No hydronephrosis or nephrolithiasis small amount of air seen in the bladder correlate for recent Rg catheter insertion. Otherwise consider infectious etiology and correlation with urinalysis. 2. Nonspecific bowel gas pattern with no diagnostic evidence of obstruction. 3. Chronic osseous changes as described above.
[2020-08-21] MEDS ORDERED: cefTRIAXone 1,000 MG VIAL (IM USE) IM STA (14:17)
[2020-08-21 15:21] VITALS: BP 122/97; PULSE 97; TEMP 98.1
== END 2020-08-21 15:21 | disposition home or self-care (01) ==
LOC: EC 11:27
DX: N30.91 Cystitis, unspecified with hematuria (principal); I10 Essential (primary) hypertension; I48.91 Unspecified atrial fibrillation; Z79.01 Long term (current) use of anticoagulants; Z79.82 Long term (current) use of aspirin; Z86.73 Personal history of transient ischemic attack (TIA), and cerebral infarction without residual deficits
CPT/HCPCS: 36415; 80053; 85025; 81001; 87086; 74176; 99284; 96360; 96372; J0696

== ENCOUNTER 2021-09-08 15:14 | Inpatient (IN) | payer MEDICARE, BC ==
[2021-09-08] MEDS ORDERED: SODIUM CHLORIDE 0.9% 500 ML 500 ML IV ONE (15:45)
[2021-09-08 16:03] LABS: Glucose,Whole Blood 123 mg/dL (75-99)
[2021-09-08 16:11] LABS: Potassium 3.5 mmol/L (3.5-5.1)
[2021-09-08 16:12] LABS: ALT 28 U/L (4-34); AST 38 U/L (14-36); African American GFR (CKD) >90 (>60 ml/min/1.73 sqM); Albumin 4.6 g/dL (3.5-5.0); Alkaline Phosphatase 110 U/L (38-126); Anion Gap 11 mmol/L; Blood Urea Nitrogen 12 mg/dL (7-17); Calcium 9.1 mg/dL (8.4-10.2); Carbon Dioxide 22 mmol/L (22-30); Chloride 101 mmol/L (98-107); Glucose 132 mg/dL (74-99); Non-African American GFR(CKD) 78 (>60 ml/min/1.73 sqM); Sodium 134 mmol/L (137-145); Total Bilirubin 1.9 mg/dL (0.2-1.3); Total Protein 8.4 g/dL (6.3-8.2)
[2021-09-08 16:13] LABS: INR 1.7 (<1.2); Partial Thromboplastin Time 28.6 sec (22.0-30.0)
[2021-09-08 16:29] LABS: Basophils % (A) 0 %; Eosinophils % (A) 0 %; HCT 47.3 % (34.0-46.0); HGB 16.2 gm/dL (11.4-16.0); Lymphocytes # (A) 1.3 k/uL (1.0-4.8); Lymphocytes % (A) 13 %; MCH 34.2 pg (25.0-35.0); MCHC 34.2 g/dL (31.0-37.0); MCV 99.9 fL (80.0-100.0); Mean Platelet Volume 7.6; Monocytes # (A) 0.4 k/uL (0-1.0); Monocytes % (A) 4 %; Neutrophils # (A) 7.8 k/uL (1.3-7.7); Neutrophils % (A) 81 %; Platelet Count 258 k/uL (150-450); RBC 4.73 m/uL (3.80-5.40); RDW 13.2 % (11.5-15.5); WBC 9.6 k/uL (3.8-10.6)
--- NOTE | 2021-09-08 16:55 | XR ---
EXAMINATION TYPE: XR chest 2V DATE OF EXAM: 09/08/2021 COMPARISON: 07/29/2019 HISTORY: Altered mental status TECHNIQUE: 2 views FINDINGS: Heart is enlarged. There is no heart failure. There is left axillary pacemaker. There is mi d thoracic vertebroplasty. Thoracic aorta is atheromatous. IMPRESSION: Cardiomegaly. No active cardiopulmonary disease. Heart appears increased compared to old exam.
--- NOTE | 2021-09-08 17:18 | CT ---
EXAMINATION TYPE: CT brain wo con DATE OF EXAM: 09/08/2021 COMPARISON: 07/29/2019 HISTORY: Altered mental status CT DLP: mGycm Automated exposure control for dose reduction was used. There is cerebral atrophy. There is patchy hypodensity in the periventricular white matter. There is no mass effect or midline shift. There is no sign of intracranial hemorrhage. Calvarium is intact. No evidence of intracranial mass. The skull base is intact. IMPRESSION: Cerebral atrophy and chronic small vessel ischemia. There is no acute intracranial abnormality. No ch callie compared to old exam.
--- NOTE | 2021-09-08 17:21 | ED ---
General Adult HPI - General Chief complaint: Altered Mental Status Stated complaint: Confusion Time Seen by Provider: 09/08/21 15:17 Source: patient, family, EMS, RN notes reviewed, old records reviewed Mode of arrival: EMS Limitations: altered mental status - History of Present Illness Initial comments: 89-year-old female presenting for evaluation of confusion which began sometime within the last 28 hours. The exact timing is not known. She is accompanied by her son who together unable to provide history. She has history of recurrent UTI and has had similar symptoms in the past. She will to lunch with her son yesterday early afternoon and was in her usual state of health. She does have right-sided weakness which has been present for several years. She is on Coumadin with history of atrial fibrillation. She has history of recurrent UTI. There's been no fever or vomiting. She ate normally yesterday. - Related Data Home Medications Medication Instructions Recorded Confirmed Aspirin EC [Ecotrin Low Dose] 81 mg PO DAILY 11/26/13 08/21/20 Multivitamins, Thera [Multivitamin 1 tab PO DAILY 11/26/13 08/21/20 (formulary)] Isosorbide Mononitrate ER [Imdur] 30 mg PO DAILY 09/13/14 08/21/20 Lovastatin [Mevacor] 10 mg PO HS 09/13/14 08/21/20 Acetaminophen Tab [Tylenol] 325 - 650 mg PO Q6H PRN 06/18/16 08/21/20 Clotrimazole Cream [Lotrimin Cream] 1 applic TOPICAL DAILY PRN 06/18/16 08/21/20 Nitroglycerin Oint Tube [Nitro-Bid 1 inch TOPICAL DAILY PRN 06/18/16 08/21/20 Oint Tube] Nitroglycerin Sl Tabs [Nitrostat] 0.4 mg SL Q5M PRN 06/18/16 08/21/20 Psyllium Husk [Psyllium] 0.8 gm PO DAILY 06/18/16 08/21/20 amLODIPine [Norvasc] 2.5 mg PO BID@1230,2100 06/18/16 08/21/20 Docusate [Colace] 200 mg PO DAILY 06/23/17 08/21/20 [place]-3 Fatty Acids/Fish Oil [Fish 3 cap PO DAILY 06/23/17 08/21/20 Oil 1,000 mg Softgel] Warfarin Sodium [Coumadin] 4 mg PO HS 06/23/17 08/21/20 Losartan [Cozaar] 25 mg PO BID 07/29/19 08/21/20 Magnesium Oxide [Mag-Ox] 400 mg PO DAILY@1400 07/29/19 08/21/20 Polyethylene Glycol 3350 [Miralax] 17 gm PO DAILY@1000 07/29/19 08/21/20 Ascorbic Acid [Vitamin C] 500 mg PO DAILY 08/21/20 08/21/20 Previous Rx's Medication Instructions Recorded Metoprolol Tartrate [Lopressor] 100 mg PO BID #20 tab 09/19/14 Cephalexin [Keflex] 500 mg PO Q6HR #40 cap 08/21/20 Allergies Allergy/AdvReac Type Severity Reaction Status Date / Time ciprofloxacin [From [facility]] Allergy Unknown Verified 09/08/21 15:30 amiodarone AdvReac VISION Verified 09/08/21 15:30 CHANGES Review of Systems ROS Statement: Those systems with pertinent positive or pertinent negative responses have been documented in the HPI. ROS Other: All systems not noted in ROS Statement are negative. 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 History of Any Multi-Drug Resistant Organisms: None Reported Past Surgical History: Hysterectomy, Pacemaker, Tonsillectomy Additional Past Surgical History / Comment(s): colonoscopy, bilateral cataract removal with lens implants. Past Anesthesia/Blood Transfusion Reactions: No Reported Reaction Additional Past Anesthesia/Blood Transfusion Reaction / Comment(s): Pt has never recieved blood. Type of Cardiac Device: Permanent Pacemaker Device Placement Date:: 09/15/14 Past Psychological History: No Psychological Hx Reported Smoking Status: Never smoker Past Alcohol Use History: None Reported Past Drug Use History: None Reported - Past Family History Father Family Medical History: Cancer Additional Family Medical History / Comment(s): Father at age 89yrs of prostate cancer that went to the bone. Mother Family Medical History: Hypertension Additional Family Medical History / Comment(s): Mother lived to be 84 yrs old. General Exam Limitations: altered mental status General appearance: alert, in no apparent distress Head exam: Present: atraumatic, normocephalic Eye exam: Present: normal appearance, PERRL ENT exam: Present: mucous membranes dry Neck exam: Present: normal inspection. Absent: tenderness, meningismus Respiratory exam: Present: normal lung sounds bilaterally. Absent: respiratory distress, wheezes Cardiovascular Exam: Present: regular rate, irregular rhythm GI/Abdominal exam: Present: soft. Absent: distended, tenderness, guarding Extremities exam: Present: normal inspection, normal capillary refill. Absent: pedal edema Neurological exam: Present: alert, CN II-XII intact. Absent: oriented X3, motor sensory deficit Psychiatric exam: Present: normal affect, normal mood Skin exam: Present: warm, dry, intact. Absent: cyanosis, diaphoretic Course Vital Signs 09/08/21 09/08/21 15:16 17:29 Temperature 97.7 F Pulse Rate 89 79 Respiratory 17 18 Rate Blood Pressure 159/112 134/70 O2 Sat by Pulse 94 L 97 Oximetry EKG Findings - EKG Comments: EKG Findings:: Neutrophils and, left axis, left bundle, rate of 74, QRS duration 147, QTC 462, no ST segment elevation, tremor artifact throughout. Medical Decision Making - Medical Decision Making 89-year-old female presenting for evaluation increased confusion over the past 24-28 hours. The exact onset is uncertain. Patient does have history of recurrent UTIs. She is afebrile with stable vitals upon arrival. She does not have any pain complaints. No headache. Workup is initiated including head CT and chest x-ray as well as laboratory testing. She is found to have an elevated hemoglobin which may be from concentration and dehydration. She has a normal white blood cell count. Relatively normal electrolytes. Chest 2+ ketones in her urine as well as 14 red cells and 9 white cells. Culture of this will be obtained and these results are pending. She's given IV fluids and IV anti biotics in the emergency department. Her head CT is negative for intracranial hemorrhage mass effect, no acute findings. Chest x-ray negative for acute cardiopulmonary findings. Given this acute change in her mental status she will be admitted for further evaluation treatment. Case discussed with - Lab Data Result diagrams: 09/08/21 15:53 09/08/21 15:53 Lab Results 09/08/21 09/08/21 09/08/21 Range/Units 15:53 15:53 15:53 WBC 9.6 (3.8-10.6) k/uL RBC 4.73 (3.80-5.40) m/uL Hgb 16.2 H (11.4-16.0) gm/dL Hct 47.3 H (34.0-46.0) % MCV 99.9 (80.0-100.0) fL MCH 34.2 (25.0-35.0) pg MCHC 34.2 (31.0-37.0) g/dL RDW 13.2 (11.5-15.5) % Plt Count 258 (150-450) k/uL MPV 7.6 Neutrophils % 81 % Lymphocytes % 13 % Monocytes % 4 % Eosinophils % 0 % Basophils % 0 % Neutrophils # 7.8 H (1.3-7.7) k/uL Lymphocytes # 1.3 (1.0-4.8) k/uL Monocytes # 0.4 (0-1.0) k/uL Eosinophils # 0.0 (0-0.7) k/uL Basophils # 0.0 (0-0.2) k/uL PT 17.0 H (9.0-12.0) sec INR 1.7 H (<1.2) APTT 28.6 (22.0-30.0) sec Sodium 134 L (137-145) mmol/L Potassium 3.5 (3.5-5.1) mmol/L Chloride 101 (98-107) mmol/L Carbon Dioxide 22 (22-30) mmol/L Anion Gap 11 mmol/L BUN 12 (7-17) mg/dL Creatinine 0.67 (0.52-1.04) mg/dL Est GFR (CKD-EPI)AfAm >90 (>60 ml/min/1.73 sqM) Est GFR (CKD-EPI)NonAf 78 (>60 ml/min/1.73 sqM) Glucose 132 H (74-99) mg/dL POC Glucose (mg/dL) (75-99) mg/dL POC Glu Cooler Worker ID Calcium 9.1 (8.4-10.2) mg/dL Total Bilirubin 1.9 H (0.2-1.3) mg/dL AST 38 H (14-36) U/L ALT 28 (4-34) U/L Alkaline Phosphatase 110 (38-126) U/L Total Protein 8.4 H (6.3-8.2) g/dL Albumin 4.6 (3.5-5.0) g/dL Urine Color Urine Appearance (Clear) Urine pH (5.0-8.0) Ur Specific [place] (1.001-1.035) Urine Protein (Negative) Urine Glucose (UA) (Negative) Urine Ketones (Negative) Urine Blood (Negative) Urine Nitrite (Negative) Urine Bilirubin (Negative) Urine Urobilinogen (<2.0) mg/dL Ur Leukocyte Esterase (Negative) Urine RBC (0-5) /hpf Urine WBC (0-5) /hpf Ur Squamous Epith Cells (0-4) /hpf Hyaline Casts (0-2) /lpf Urine Mucus (None) /hpf 09/08/21 09/08/21 Range/Units 16:01 17:52 WBC (3.8-10.6) k/uL RBC (3.80-5.40) m/uL Hgb (11.4-16.0) gm/dL Hct (34.0-46.0) % MCV (80.0-100.0) fL MCH (25.0-35.0) pg MCHC (31.0-37.0) g/dL RDW (11.5-15.5) % Plt Count (150-450) k/uL MPV Neutrophils % % Lymphocytes % % Monocytes % % Eosinophils % % Basophils % % Neutrophils # (1.3-7.7) k/uL Lymphocytes # (1.0-4.8) k/uL Monocytes # (0-1.0) k/uL Eosinophils # (0-0.7) k/uL Basophils # (0-0.2) k/uL PT (9.0-12.0) sec INR (<1.2) APTT (22.0-30.0) sec Sodium (137-145) mmol/L Potassium (3.5-5.1) mmol/L Chloride (98-107) mmol/L Carbon Dioxide (22-30) mmol/L Anion Gap mmol/L BUN (7-17) mg/dL Creatinine (0.52-1.04) mg/dL Est GFR (CKD-EPI)AfAm (>60 ml/min/1.73 sqM) Est GFR (CKD-EPI)NonAf (>60 ml/min/1.73 sqM) Glucose (74-99) mg/dL POC Glucose (mg/dL) 123 H (75-99) mg/dL POC Glu Cooler Worker ID Aileen Sousa Calcium (8.4-10.2) mg/dL Total Bilirubin (0.2-1.3) mg/dL AST (14-36) U/L ALT (4-34) U/L Alkaline Phosphatase (38-126) U/L Total Protein (6.3-8.2) g/dL Albumin (3.5-5.0) g/dL Urine Color Yellow Urine Appearance Clear (Clear) Urine pH 6.5 (5.0-8.0) Ur Specific [place] 1.015 (1.001-1.035) Urine Protein 1+ H (Negative) Urine Glucose (UA) Negative (Negative) Urine Ketones 2+ H (Negative) Urine Blood Small H (Negative) Urine Nitrite Negative (Negative) Urine Bilirubin Negative (Negative) Urine Urobilinogen <2.0 (<2.0) mg/dL Ur Leukocyte Esterase Small H (Negative) Urine RBC 14 H (0-5) /hpf Urine WBC 9 H (0-5) /hpf Ur Squamous Epith Cells <1 (0-4) /hpf Hyaline Casts 4 H (0-2) /lpf Urine Mucus Rare H (None) /hpf Disposition Clinical Impression: Altered mental status, Delirium due to general medical condition, Dehydration, UTI (urinary tract infection) Disposition: ADMITTED IP TO THIS [facility] Condition: Stable Is patient prescribed a controlled substance at d/c from ED?: No Referrals: Cecily Maddox MD [Primary Care Provider] - 1-2 days Decision to Admit Reason: Admit from EC Decision Date: 09/08/21 Decision Time: 19:34
[2021-09-08] MEDS ORDERED: ONDANSETRON 4 MG/2 ML VIAL IVP STA (18:05)
[2021-09-08 18:09] LABS: Appearance,Urine Clear (Clear); Bilirubin,Urine Negative (Negative); Blood,Urine Small (Negative); Color,Urine Yellow; Glucose,Urine (UA) Negative (Negative); Hyaline Casts,Urine 4 /lpf (0-2); Ketones,Urine 2+ (Negative); Leukocyte Esterase,Urine Small (Negative); Mucus,Urine Rare /hpf; Nitrite,Urine Negative (Negative); PH, Urine 6.5 (5.0-8.0); Protein,Urine 1+ (Negative); RBC,Urine 14 /hpf (0-5); Specific Gravity,Urine 1.015 (1.001-1.035); Squamous Epithelial Cell,Urine <1 /hpf (0-4); Urobilinogen,Urine <2.0 mg/dL (<2.0); WBC,Urine 9 /hpf (0-5)
[2021-09-08] MEDS ORDERED: cefTRIAXone IN SWFI 1,000 MG/10 ML SYRINGE IVP STA (19:01)
[2021-09-08] MEDS ORDERED: NALOXONE 0.4 MG/ML 1 ML VIAL IV PRN (19:31)
[2021-09-08] MEDS: SODIUM CHLORIDE 0.9% 1,000 ML IV SCH (19:53)
--- NOTE | 2021-09-09 01:24 | P.HPIM ---
History of Present Illness H&P Date: 09/08/21 The patient is an 89-year-old female with a PMH of A. fib on Coumadin, hypertension, and hyperlipidemia who was brought to the emergency room by her family for confusion. The history was obtained from the son via phone (Tin Garcia [phone]) who noted that the patient who is normally independent in all her ADLs had stopped answering phone calls which was very unusual for her. She had previously had lunch with her family members 24 hours prior to arrival at the ED. The son contacted her neighbors who went in to check on her and found her to be very confused. The son reports that she has a history of not drinking enough water leading to episodes of dehydration and subsequent confusion. The patient was confused at the time of interview but states that she is at the hospital because she couldn't remember things. She denied any physical complaints. She denied experiencing fever, chills, urinary complaints, chest pian, SOB, nausea, vomiting, abdominal pain, diarrhea. CT brain revealed chronic small vessel disease but no acute abnormalities. CXR revealed increased cardiomegaly. Laboratory evaluation was remarkable for Hgb 16.2, Na 134, T Bili 1.9, AST 38, and a UA somewhat consistent with UTI. Review of systems: Pertinent positives and negatives as discussed in HPI, a complete review of systems was performed and all other systems are negative. Physical examination: General: non toxic, no distress, appears at stated age Derm: no unusual rashes/lesions no unusual ecchymoses, warm, dry Head: atraumatic, normocephalic, symmetric Eyes: EOMI, no lid lag, anicteric sclera, pupils equal round reactive to light ENT: Nose and ears atraumatic, no thrush, no pharyngeal erythema Neck: No thyromegaly, no cervical lymphadenopathy, trachea midline, supple Mouth: no lip lesion, mucus membranes moist Cardiovascular: S1S2 reg, no murmur, positive posterior tibial pulse bilateral, no edema, capillary refill less than 2 seconds Lungs: CTA bilateral, no rhonchi, no rales , no accessory muscle use Abdominal: soft, nontender to palpation, no guarding, no appreciable organomegaly, normal bowel sounds Ext: no gross muscle atrophy, muscle strength 4 out of 5 in all 4 extremities grossly, no contractures, Neuro: CN II-XI grossly intact, light touch intact all 4 extremities, finger to nose within normal limits, Psych: Alert, oriented to person and place, not to time Assessment/plan Toxic metabolic encephalopathy, suspected secondary to UTI and dehydration -Gentle IV hydration -C/w Ceftriaxone -F/u blood and urine cultures Chronic conditions: Afib, HTN, HLD -C/w home meds DVT prophylaxis -Coumadin The patient is admitted with an anticipated less than 2 midnight stay for evaluation of AMS CODE STATUS: No Code Discussed with: Patient Anticipated discharge date: in am Anticipated discharge place: Home Past Medical History Past Medical History: Atrial Fibrillation, Hypertension Additional Past Medical History / Comment(s): Afib with RVR, 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 History of Any Multi-Drug Resistant Organisms: None Reported Past Surgical History: Hysterectomy, Pacemaker, Tonsillectomy Additional Past Surgical History / Comment(s): colonoscopy, bilateral cataract removal with lens implants. Past Anesthesia/Blood Transfusion Reactions: No Reported Reaction Additional Past Anesthesia/Blood Transfusion Reaction / Comment(s): Pt has never recieved blood. Type of Cardiac Device: Permanent Pacemaker Device Placement Date:: 09/15/14 Past Psychological History: No Psychological Hx Reported Additional Psychological History / Comment(s): Pt lives alone in a condo. She is independent. She performs her own ADLs and drives a car. She does not use any assisstive devices and no home care agencies come into the home. Smoking Status: Never smoker Past Alcohol Use History: None Reported Past Drug Use History: None Reported - Past Family History Father Family Medical History: Cancer Additional Family Medical History / Comment(s): Father at age 89yrs of prostate cancer that went to the bone. Mother Family Medical History: Hypertension Additional Family Medical History / Comment(s): Mother lived to be 84 yrs old. Medications and Allergies Home Medications Medication Instructions Recorded Confirmed Type Isosorbide Mononitrate ER [Imdur] 30 mg PO DAILY 09/13/14 09/08/21 History Lovastatin [Mevacor] 10 mg PO DAILY 09/13/14 09/08/21 History Metoprolol Tartrate [Lopressor] 100 mg PO BID #20 tab 09/19/14 09/08/21 Rx amLODIPine [Norvasc] 2.5 mg PO BID 06/18/16 09/08/21 History Losartan [Cozaar] 25 mg PO BID 07/29/19 09/08/21 History Nystatin 100,000Unit/gm Cream 1 applic TOPICAL BID PRN 09/08/21 09/08/21 History [Mycostatin Cream] Warfarin Sodium [Jantoven] 3 mg PO DAILY 09/08/21 09/08/21 History Allergies Allergy/AdvReac Type Severity Reaction Status Date / Time ciprofloxacin [From [facility]] Allergy Unknown Verified 09/08/21 20:17 amiodarone AdvReac VISION Verified 09/08/21 20:17 CHANGES Physical Exam Vitals: Vital Signs Temp Pulse Pulse Resp BP BP Pulse Ox 09/08/21 20:00 97.9 F 69 18 136/83 93 L 09/08/21 17:29 79 18 134/70 97 09/08/21 15:16 97.7 F 89 17 159/112 94 L Intake and Output 09/08/21 09/08/21 09/08/21 06:59 14:59 22:59 Other: Weight 68.039 kg Results CBC & Chem 7: 09/08/21 15:53 09/08/21 15:53 Labs: Abnormal Lab Results - Last 24 Hours (Table) 09/08/21 09/08/21 09/08/21 Range/Units 15:53 15:53 15:53 Hgb 16.2 H (11.4-16.0) gm/dL Hct 47.3 H (34.0-46.0) % Neutrophils # 7.8 H (1.3-7.7) k/uL PT 17.0 H (9.0-12.0) sec INR 1.7 H (<1.2) Sodium 134 L (137-145) mmol/L Glucose 132 H (74-99) mg/dL POC Glucose (mg/dL) (75-99) mg/dL Total Bilirubin 1.9 H (0.2-1.3) mg/dL AST 38 H (14-36) U/L Total Protein 8.4 H (6.3-8.2) g/dL Urine Protein (Negative) Urine Ketones (Negative) Urine Blood (Negative) Ur Leukocyte Esterase (Negative) Urine RBC (0-5) /hpf Urine WBC (0-5) /hpf Hyaline Casts (0-2) /lpf Urine Mucus (None) /hpf 09/08/21 09/08/21 Range/Units 16:01 17:52 Hgb (11.4-16.0) gm/dL Hct (34.0-46.0) % Neutrophils # (1.3-7.7) k/uL PT (9.0-12.0) sec INR (<1.2) Sodium (137-145) mmol/L Glucose (74-99) mg/dL POC Glucose (mg/dL) 123 H (75-99) mg/dL Total Bilirubin (0.2-1.3) mg/dL AST (14-36) U/L Total Protein (6.3-8.2) g/dL Urine Protein 1+ H (Negative) Urine Ketones 2+ H (Negative) Urine Blood Small H (Negative) Ur Leukocyte Esterase Small H (Negative) Urine RBC 14 H (0-5) /hpf Urine WBC 9 H (0-5) /hpf Hyaline Casts 4 H (0-2) /lpf Urine Mucus Rare H (None) /hpf Thrombosis Risk Factor Assmnt - Choose All That Apply Any of the Below Risk Factors Present?: Yes Each Factor Represents 1 point: Obesity (BMI >25) Other Risk Factors: Yes Each Risk Factor Represents 3 Points: Age 75 years or older Other congenital or acquired thrombophilia - If yes, enter type in comment: No Thrombosis Risk Factor Assessment Total Risk Factor Score: 4 Thrombosis Risk Factor Assessment Level: Moderate Risk
[2021-09-09] MEDS: METOPROLOL TARTRATE 50 MG TAB PO SCH ×2 (07:51→20:05)
[2021-09-09] MEDS: ISOSORBIDE MONONITRATE ER 30 MG TAB.ER.24H PO SCH (07:51)
[2021-09-09] MEDS: SODIUM CHLORIDE 0.9% 1,000 ML IV SCH ×2 (07:51→20:04)
[2021-09-09] MEDS: LOSARTAN 25 MG TAB PO SCH ×2 (07:51→20:05)
[2021-09-09] MEDS: amLODIPine 2.5 MG TAB PO SCH ×2 (07:51→20:05)
[2021-09-09] MEDS: ATORVASTATIN 10 MG TAB PO SCH (07:51)
[2021-09-09] MEDS ORDERED: WARFARIN 3 MG TAB PO SCH (09:00)
[2021-09-09 11:59] LABS: HCT 44.7 % (37.2-46.3); HGB 14.4 g/dL (12.0-15.0); MCH 32.4 pg (27.0-32.0); MCHC 32.2 g/dL (32.0-37.0); MCV 100.7 fL (80.0-97.0); Mean Platelet Volume 10.6 fL (9.5-12.2); NRBC Per 100 WBC 0.3 /100 WBCS (0.0-0.0); Platelet Count 292 X 10*3/uL (140-440); RBC 4.44 X 10*6/uL (4.10-5.20); RDW 13.5 % (11.5-14.5)
[2021-09-09 13:25] LABS: African American GFR (CKD) 91.7 (60.0-200.0); Anion Gap 15.3 mmol/L (10.00-18.00); BUN/Creat Ratio 18.59 Ratio (12.00-20.00); Blood Urea Nitrogen 11.9 mg/dL (9.0-27.0); Calcium 8.5 mg/dL (8.7-10.3); Carbon Dioxide 18.7 mmol/L (20.0-27.5); Non-African American GFR(CKD) 79.1 (60.0-200.0); Potassium 3.5 mmol/L (3.5-5.5)
--- NOTE | 2021-09-09 15:04 | P.PN ---
Subjective Patient was examined at bedside today is able to answer some questions. She is awake alert oriented 2. She denies any worsening symptomatology denies any suprapubic tenderness, chest pain, palpitations. Both sons were present at bedside that noted patient continues to cough every time she drinks water or eats food. Patient at baseline is completely independent and this is something completely new. They have also noted some change in her keys which is specifically fixated to the right that was noted on my physical examination as well. Denies any new head trauma or injury. Computed tomography scan of the brain was completed in the emergency department. Of note patient is on anticoagulation at home. Objective - Vital Signs Vital signs: Vital Signs Temp 98.9 F 09/09/21 13:00 Pulse 73 09/09/21 13:00 Resp 17 09/09/21 13:00 BP 117/77 09/09/21 13:00 Pulse Ox 95 09/09/21 13:00 Intake & Output 09/08/21 09/09/21 09/09/21 18:59 06:59 18:59 Intake Total 1000 Output Total 350 350 Balance 650 -350 Weight 68.039 kg 68.039 kg Intake: Intake, IV Titration 800 Amount Sodium Chloride 0.9% 1, 800 000 ml @ 75 mls/hr IV . [id number] [facility] Rx#:[id number] Oral 200 Output: Urine 350 Post Void Residual 350 Other: Voiding Method Bedside Commode Bedside Commode Diaper Incontinent # Voids 1 - Exam Physical examination: General: non toxic, no distress, Derm: no unusual rashes/lesions no unusual ecchymoses, warm, dry Head: atraumatic, normocephalic, symmetric Eyes: Both are reactive to light however fixated more predominantly on the right. ENT: Nose and ears atraumatic, no thrush, no pharyngeal erythema Neck: No thyromegaly, no cervical lymphadenopathy, trachea midline, supple Mouth: no lip lesion, mucus membranes moist Cardiovascular: S1S2 reg, no murmur, positive posterior tibial pulse bilateral, no edema, capillary refill less than 2 seconds Lungs: Some rhonchi appreciated on the right base no wheezing appreciated bilaterally. Abdominal: soft, nontender to palpation, no guarding, no appreciable organom egaly, normal bowel sounds Ext: no gross muscle atrophy, muscle strength 4 out of 5 in all 4 extremities grossly, no contractures, Neuro: Muscles sength 5 out of 5 upper and lower extremity Sensory intact upper and lower extremity Eyes fixated to the right unable to track with my finger. Psych: Alert, oriented to person and place, not to time - Labs CBC & Chem 7: 09/09/21 07:39 09/09/21 07:39 Labs: Abnormal Lab Results - Last 24 Hours (Table) 09/08/21 09/08/21 09/08/21 Range/Units 15:53 15:53 15:53 WBC (4.50-10.00) X 10*3/uL Hgb 16.2 H (11.4-16.0) gm/dL Hct 47.3 H (34.0-46.0) % MCV (80.0-97.0) fL MCH (27.0-32.0) pg Absolute Nucleated RBC (0.00-0.00) X 10*3/uL Neutrophils # 7.8 H (1.3-7.7) k/uL NRBC/100 WBC Diff (0.0-0.0) /100 WBCS PT 17.0 H (9.0-12.0) sec INR 1.7 H (<1.2) Sodium 134 L (137-145) mmol/L Carbon Dioxide (20.0-27.5) mmol/L Glucose 132 H (74-99) mg/dL POC Glucose (mg/dL) (75-99) mg/dL Calcium (8.7-10.3) mg/dL Total Bilirubin 1.9 H (0.2-1.3) mg/dL AST 38 H (14-36) U/L Total Protein 8.4 H (6.3-8.2) g/dL Urine Protein (Negative) Urine Ketones (Negative) Urine Blood (Negative) Ur Leukocyte Esterase (Negative) Urine RBC (0-5) /hpf Urine WBC (0-5) /hpf Hyaline Casts (0-2) /lpf Urine Mucus (None) /hpf 09/08/21 09/08/21 09/09/21 Range/Units 16:01 17:52 07:39 WBC 11.40 H (4.50-10.00) X 10*3/uL Hgb (11.4-16.0) gm/dL Hct (34.0-46.0) % MCV 100.7 H (80.0-97.0) fL MCH 32.4 H (27.0-32.0) pg Absolute Nucleated RBC 0.03 H (0.00-0.00) X 10*3/uL Neutrophils # (1.3-7.7) k/uL NRBC/100 WBC Diff 0.3 H (0.0-0.0) /100 WBCS PT (9.0-12.0) sec INR (<1.2) Sodium (137-145) mmol/L Carbon Dioxide (20.0-27.5) mmol/L Glucose (74-99) mg/dL POC Glucose (mg/dL) 123 H (75-99) mg/dL Calcium (8.7-10.3) mg/dL Total Bilirubin (0.2-1.3) mg/dL AST (14-36) U/L Total Protein (6.3-8.2) g/dL Urine Protein 1+ H (Negative) Urine Ketones 2+ H (Negative) Urine Blood Small H (Negative) Ur Leukocyte Esterase Small H (Negative) Urine RBC 14 H (0-5) /hpf Urine WBC 9 H (0-5) /hpf Hyaline Casts 4 H (0-2) /lpf Urine Mucus Rare H (None) /hpf 09/09/21 Range/Units 07:39 WBC (4.50-10.00) X 10*3/uL Hgb (11.4-16.0) gm/dL Hct (34.0-46.0) % MCV (80.0-97.0) fL MCH (27.0-32.0) pg Absolute Nucleated RBC (0.00-0.00) X 10*3/uL Neutrophils # (1.3-7.7) k/uL NRBC/100 WBC Diff (0.0-0.0) /100 WBCS PT (9.0-12.0) sec INR (<1.2) Sodium (137-145) mmol/L Carbon Dioxide 18.7 L (20.0-27.5) mmol/L Glucose (74-99) mg/dL POC Glucose (mg/dL) (75-99) mg/dL Calcium 8.5 L (8.7-10.3) mg/dL Total Bilirubin (0.2-1.3) mg/dL AST (14-36) U/L Total Protein (6.3-8.2) g/dL Urine Protein (Negative) Urine Ketones (Negative) Urine Blood (Negative) Ur Leukocyte Esterase (Negative) Urine RBC (0-5) /hpf Urine WBC (0-5) /hpf Hyaline Casts (0-2) /lpf Urine Mucus (None) /hpf Assessment and Plan Plan: Assessment/plan Toxic metabolic encephalopathy, suspected secondary to UTI and dehydration versus aspiration pneumonia? -Gentle IV hydration -C/w Ceftriaxone -F/u blood and urine cultures -We'll obtain speech evaluation -CT brain completed negative -Appreciate neurology recommendations given change in mentation and gaze deficit. Chronic conditions: Afib, HTN, HLD -C/w home meds DVT prophylaxis -Coumadin The patient is admitted with an anticipated less than 2 midnight stay for bryce luation of AMS CODE STATUS: No Code Discussed with: Patient/2 Songs presents at bedside Anticipated discharge place: TBD - PT/OT eval
[2021-09-09] MEDS ORDERED: WARFARIN 2 MG TAB PO ONE (18:00)
--- NOTE | 2021-09-09 18:52 | US ---
EXAMINATION TYPE: US carotid duplex BILAT DATE OF EXAM: 09/09/2021 COMPARISON: NONE CLINICAL HISTORY: Acute CVA. Weakness, CVA EXAM MEASUREMENTS: RIGHT: Peak Systolic Velocity (PSV) cm/sec ----- Right CCA: 54.0 ----- Right ICA: 64.3 ----- Right ECA: 98.2 ICA/CCA ratio: 1.2 RIGHT: End Diastole cm/sec ----- Right CCA: 11.8 ----- Right ICA: 17.8 ----- Right ECA: 0.0 LEFT: Peak Systolic Velocity (PSV) cm/sec ----- Left CCA: 67.8 ----- Left ICA: 79.9 ----- Left ECA: 70.9 ICA/CCA ratio: 1.2 LEFT: End Diastole cm/sec ----- Left CCA: 15.4 ----- Left ICA: 20.7 ----- Left ECA: 0.0 VERTEBRALS (direction of flow): Right Vertebral: Antegrade Left Vertebral: Antegrade Rhythm: Arrhythmia No significant stenosis seen IMPRESSION: There is antegrade flow in the vertebral arteries. The images and measurements suggest le ss than 20% stenosis in both internal carotid arteries. Criteria for Assigning % of Stenosis / Diameter reduction (Estimation based on the indirect measurements of the internal carotid artery velocities (ICA PSV). 1. Normal (no stenosis)=ICA PSV < 125 cm/s: ratio < 2.0: ICA EDV<40 cm/s. 2. Less than 50% stenosis=ICA PSV < 125 cm/s: ratio < 2.0: ICA EDV<40 cm/s. 3. 50 to 69% stenosis=ICA PSV of 125 to 230 cm/s: ration 2.0 ? 4.0: ICA EDV 40-100 cm/s. 4. Greater than 70% stenosis to near occlusion= ICA PSV > 230 cm/s: ratio > 4.0: ICA EDV > 100 cm/s. 5. Near occlusion= ICA PSV velocities may be low or undetectable: variable ratio and ICA EDV. 6. Total occlusion=unable to detect flow.
--- NOTE | 2021-09-09 23:10 | P.CNNES ---
History of Present Illness Consult date: 09/09/21 Requesting physician: Brayan Norris Reason for Consult: Altered mental status History of Present Illness: Patient is a 89-year-old right-handed female came to the hospital by ambulance yesterday at 3:14 PM. Patient does not know details why she came to the hospital. She states that EMS people brought her here. And the reason that they brought was because "I did not know the year". As per EMS flow sheet, there was a delay in opening the door of the patient's home because of locked door and patient not responding to requests to open the door. Upon gaining entry, found patient sitting on living room couch, alert and oriented 3, difficulty with time. The neighbor arrived on the scene. Neighbor states that patient does live alone and normal level of consciousness is alert and oriented 4. Patient is quick to answer questions. Today patient was having difficulty gathering thoughts to answer questions. There was no slurred speech, facial droop, arm droop. No recent falls, negative trauma injury noted. Patient does have small contusion noted to the dorsal left hand near the thumb. Patient continued to have difficulty gathering her thoughts during transport. Patient's blood pressure at the scene was 164/96, ulcer 84, respiration 20, saturation 96% blood glucose 161 and temperature 97.3. Patient's vitals on arrival blood pressure 159/112, pulse rate 89, temperature 97.7. Blood test shows normal WBC hemoglobin 16.2, platelets 258. INR subtherapeutic 1.7, PTT 28.6. Chem-7 is normal, AST 38, ALT 28 UA shows small amount of leukocyte Estrace, [address] head showed cerebral atrophy and chronic small vessel ischemia. There is no acute intracranial abnormality. No change compared to old examination from 07/29/2019. On my personal review, agreed a significant small vessel disease. There is definite subacute hypodensity in the right frontal region, perhaps indicating a subacute ischemic CVA. Patient was not a candidate for TPA, as she was on Coumadin with INR 1.7, as well as last known well > 4.5 hours. I spoke to patient's son, who states that patient had previous similar episodes of altered mental status, which were related to UTI, and after receiving 1 dose of antibiotic, she would bounce back ready to go home. This time she is much more sick. Patient's son states that patient lives by herself and he called her every morning at 8 AM. He helps her a lot. He and his mom goes out to eat lunch twice a week and once at her house. Yesterday he did not call her at 8 A M. Later when he called at around noon, it went to the answering machine. Patient's and believed that she may have gone out to [employer] for groceries, as patient does drive. Patient's brother also tried to call and she did not respond. They had EMS for a welfare check and found patient completely out of it. Patient's son also noticed that she was only looking to her right side, ignoring everything on the left. She was not looking to her left side. He denies any history of dementia or forgetfulness. Patient is very sharp otherwise. Patient has reported history of atrial fibrillation, also has a pacemaker patient has history of syncopal spell for which she was seen by neurologist in November 2016. EEG was done at that time, which was awake EEG, can be considered within normal limits. No epileptiform activity was seen. Patient does not smoke, does not drink, denies diabetes. She does have hypertension. Patient does take Mevacor 10 mg, isosorbide 30 mg, metoprolol, amlodipine 2.5 mg twice a day, losartan 25 mg twice a day, Coumadin 3 mg daily. Review of Systems Patient denies headache. All other 14 point review system reviewed and noncontributory except as mentioned above. She does feel very tired, weak. Patient has history of a fall 5 years ago for which she underwent kyphoplasty. She has some back problems. 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 History of Any Multi-Drug Resistant Organisms: None Reported Past Surgical History: Hysterectomy, Pacemaker, Tonsillectomy Additional Past Surgical History / Comment(s): colonoscopy, bilateral cataract removal with lens implants. Past Anesthesia/Blood Transfusion Reactions: No Reported Reaction Additional Past Anesthesia/Blood Transfusion Reaction / Comment(s): Pt has never recieved blood. Type of Cardiac Device: Permanent Pacemaker Device Placement Date:: 09/15/14 Past Psychological History: No Psychological Hx Reported Additional Psychological History / Comment(s): Pt lives alone in a condo. She is independent. She performs her own ADLs and drives a car. She does not use any assisstive devices and no home care agencies come into the home. Smoking Status: Never smoker Past Alcohol Use History: None Reported Past Drug Use History: None Reported - Past Family History Father Family Medical History: Cancer Additional Family Medical History / Comment(s): Father at age 89yrs of prostate cancer that went to the bone. Mother Family Medical History: Hypertension Additional Family Medical History / Comment(s): Mother lived to be 84 yrs old. Medications and Allergies Home Medications Medication Instructions Recorded Confirmed Type Isosorbide Mononitrate ER [Imdur] 30 mg PO DAILY 09/13/14 09/08/21 History Lovastatin [Mevacor] 10 mg PO DAILY 09/13/14 09/08/21 History Metoprolol Tartrate [Lopressor] 100 mg PO BID #20 tab 09/19/14 09/08/21 Rx amLODIPine [Norvasc] 2.5 mg PO BID 06/18/16 09/08/21 History Losartan [Cozaar] 25 mg PO BID 07/29/19 09/08/21 History Nystatin 100,000Unit/gm Cream 1 applic TOPICAL BID PRN 09/08/21 09/08/21 History [Mycostatin Cream] Warfarin Sodium [Jantoven] 3 mg PO DAILY 09/08/21 09/08/21 History Allergies Allergy/AdvReac Type Severity Reaction Status Date / Time ciprofloxacin [From Cipro HC] Allergy Unknown Verified 09/08/21 20:17 amiodarone AdvReac VISION Verified 09/08/21 20:17 CHANGES Physical Examination - Vital Signs Vital Signs: Vital Signs Temp Pulse Pulse Pulse Resp BP BP 09/09/21 13:00 98.9 F 73 17 117/77 09/09/21 07:44 78 152/88 09/09/21 04:15 98.1 F 65 20 136/84 09/08/21 22:30 18 09/08/21 20:00 97.9 F 69 18 136/83 09/08/21 17:29 79 18 134/70 Pulse Ox 09/09/21 13:00 95 09/09/21 07:44 09/09/21 04:15 93 L 09/08/21 22:30 09/08/21 20:00 93 L 09/08/21 17:29 97 Intake and Output 09/09/21 09/09/21 09/09/21 06:59 14:59 22:59 Intake Total 1000 Output Total 350 350 Balance 650 -350 Intake: Intake, IV Titration 800 Amount Sodium Chloride 0.9% 1, 800 000 ml @ 75 mls/hr IV . [id number] KASHIF Rx#:[id number] Oral 200 Output: Urine 350 Post Void Residual 350 Other: Voiding Method Bedside Commode # Voids 1 Patient is an elderly female, in no acute distress. Patient appears to have very slow mentation. She is otherwise alert awake oriented to time place and person. Speech is mildly dysarthric and language functions are normal. Patient can name and repeat. Attention, concentration and fund of knowledge is adequate. Patient knows it is August but she states the year is 2020. She knows she is in [facility] and name of the current president. On cranial examination, pupils are equal, round and reacting to light, visual chowdary reveal complete left homonymous hemianopia. Her extraocular muscles are intact with no nystagmus. Patient has left facial weakness, central type. Her tongue protrudes to the midline. Palatal elevation and sensation normal could not be assessed, hearing and shoulder shrug normal, facial sensation normal. Shoulder shrug normal. On muscle strength testing, there is left pronator drift and the strength is (right/left) deltoid 5/4 biceps 5/5-, triceps 5/5-combination man 5/5-. Her ankles are normal hips are equal bilaterally. Deep tendon reflexes are symmetric and plantars are flat. Sensory to touch is equal with no neglect. Cerebellar function showed no ataxia for [id number] testing. Tone and bulk of muscles normal. Gait not checked. On general examination, there is no carotid bruit or murmur, S1-S2 audible. Abdomen is soft nontender. No organomegaly, bowel sounds present Chest is clear. Peripheral pulses are present. No edema. Results - Laboratory Findings CBC and BMP: 09/09/21 07:39 09/09/21 07:39 Abnormal Lab Findings: Abnormal Labs 09/08/21 09/08/21 09/08/21 15:53 15:53 15:53 WBC Hgb 16.2 H Hct 47.3 H MCV MCH Absolute Nucleated RBC Neutrophils # 7.8 H NRBC/100 WBC Diff PT 17.0 H INR 1.7 H Sodium 134 L Carbon Dioxide Glucose 132 H POC Glucose (mg/dL) Calcium Total Bilirubin 1.9 H AST 38 H Total Protein 8.4 H Urine Protein Urine Ketones Urine Blood Ur Leukocyte Esterase Urine RBC Urine WBC Hyaline Casts Urine Mucus 09/08/21 09/08/21 09/09/21 16:01 17:52 07:39 WBC 11.40 H Hgb Hct MCV 100.7 H MCH 32.4 H Absolute Nucleated RBC 0.03 H Neutrophils # NRBC/100 WBC Diff 0.3 H PT INR Sodium Carbon Dioxide Glucose POC Glucose (mg/dL) 123 H Calcium Total Bilirubin AST Total Protein Urine Protein 1+ H Urine Ketones 2+ H Urine Blood Small H Ur Leukocyte Esterase Small H Urine RBC 14 H Urine WBC 9 H Hyaline Casts 4 H Urine Mucus Rare H 09/09/21 07:39 WBC Hgb Hct MCV MCH Absolute Nucleated RBC Neutrophils # NRBC/100 WBC Diff PT INR Sodium Carbon Dioxide 18.7 L Glucose POC Glucose (mg/dL) Calcium 8.5 L Total Bilirubin AST Total Protein Urine Protein Urine Ketones Urine Blood Ur Leukocyte Esterase Urine RBC Urine WBC Hyaline Casts Urine Mucus Assessment and Plan Assessment: * Acute ischemic stroke with left homonymous hemianopia, mild left facial brachial weakness. CT head revealed subacute hypodensity involving the right frontal region. Mechanism of stroke likely from cardioembolism from atrial fibrillation. Patient's INR was slightly subtherapeutic 1.7. * Atrial fibrillation * Hypertension * Pacemaker * History of kyphoplasty. Plan: * Patient had an acute stroke likely from cardioembolism. * Suggest optimize INR to target 2.0-3.0. * Carotid Doppler ordered, which revealed antegrade flow in the vertebral arteries. There is less than 20% stenosis in both ICA. * Check B12, folate, TSH, free T4, lipid panel. * 2-D echo to rule out other embolic source. * Dr. Zechariah Gould Will resume neurology service in the morning. * Discussed with patient's son in detail. Thank you for the consult. Time with Patient: Greater than 30
[2021-09-10 06:10] LABS: INR 1.8 (<1.2); Prothrombin Time 18.4 sec (9.0-12.0)
--- NOTE | 2021-09-10 08:35 | P.PN ---
Subjective Progress Note Date: 09/10/21 Hospital course: Patient is a very pleasant 89-year-old female with a past medical history of atrial fibrillation on Coumadin, hypertension, and hyperlipidemia. She presented to the emergency department on 09/08/21 with a chief complaint of confusion. Her family reported the patient is normally independent of all of her activities of daily living and suddenly stopped answering phone calls and when neighbors went to check on her and they found her to be very confused. Family reports last known normal was 24 hours prior when he had lunch with her. Upon arrival to the emergency department patient was found to be alert and oriented 2. She underwent a CT of her brain which revealed cerebral atrophy and chronic small vessel ischemia. Carotid Dopplers revealed antegrade flow in vertebral arteries with less than 20% stenosis in both internal carotid arteries. EKG positive for atrial fibrillation with a controlled ventricular rate at 74 bpm. Patient was admitted under our services with consultation to neurology. She underwent a repeat CT which revealed evolving right MCA territory acute to subacute infarct. Lipid profile unremarkable. Echocardiogram completed and results pending. PT/OT/speech and language pathology also following. Physical exam: Vital signs reviewed and stable. General: Nontoxic, no distress and appears stated age. Derm: Skin warm and dry, normal coloration for ethnicity. Head: Atraumatic, normocephalic and symmetric. Eyes: Pupils equal, round, and reactive. no lid lag, and anicteric sclera Mouth: no lip lesions, mucus membranes moist Cardiovascular: Irregularly irregular, systolic murmur, positive posterior tibial pulses bilaterally, and cap refill < 2 seconds. Lungs: Respirations even, regular, and unlabored on room air. Lungs CTA bilaterally, no rhonchi, no rales, no wheezing, and no accessory muscle usage. Abdominal: soft, nontender to palpation, no guarding, no appreciable organomegaly Ext: ROM intact. No gross muscle atrophy, no edema, no contractures Neuro: Speech clear, face symmetrical and CN II-XII grossly intact with no noted focal neuro deficits at this time Psych: Alert and oriented to person, place, and situation confused to time. Appropriate and pleasant affect. 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 -PT/OT consulted -Speech and language pathologist consulted. -Neuro checks -Fall precautions -Daily aspirin and atorvastatin Chronic persistent Atrial fibrillation with subtherapeutic INR -Pharmacy to dose Coumadin to obtain a target INR of 2-3 Hypertension -Monitor vital signs and continue daily medication regimen with amlodipine 2.5 mg twice daily and metoprolol 100 mg twice daily Hyperlipidemia -Continue daily medication regimen with atorvastatin 10 mg daily. -Lipid profile unremarkable. CODE STATUS: No code DVT prophylaxis: Coumadin Discussed with: Patient and RN Anticipated discharge date: 1-[address]: Home versus rehab A total of 39 minutes was spent on the care of this complex patient more than 50% of the time was spent in counseling and care coordination. I reviewed the documentation as provided by the JACKY above, who is the original author of this note. I agree with the documented assessment and plan, with the following changes: none Objective - Vital Signs Vital signs: Vital Signs Temp 98.2 F 09/10/21 04:53 Pulse 75 09/10/21 04:53 Resp 16 09/10/21 04:53 BP 154/91 09/10/21 04:53 Pulse Ox 95 09/10/21 04:53 Intake & Output 09/09/21 09/10/21 09/10/21 18:59 06:59 18:59 Intake Total 1700 590 Output Total 350 300 Balance 1350 290 Intake: Intake, IV Titration 950 Amount Sodium Chloride 0.9% 1, 900 000 ml @ 75 mls/hr IV . [id number] KASHIF Rx#:[id number] cefTRIAXone 1 gm In 50 Sodium Chloride 0.9% 50 ml @ 100 mls/hr IVPB Q24H KASHIF Rx#:[id number] Oral 750 590 Output: Urine 350 300 Other: Voiding Method Bedside Commode Bedside Commode # Voids 3 # Bowel Movements 1 - Labs CBC & Chem 7: 09/09/21 07:39 09/09/21 07:39 Labs: Abnormal Lab Results - Last 24 Hours (Table) 09/09/21 09/09/21 09/10/21 Range/Units 07:39 07:39 05:22 WBC 11.40 H (4.50-10.00) X 10*3/uL MCV 100.7 H (80.0-97.0) fL MCH 32.4 H (27.0-32.0) pg Absolute Nucleated RBC 0.03 H (0.00-0.00) X 10*3/uL NRBC/100 WBC Diff 0.3 H (0.0-0.0) /100 WBCS PT 18.4 H (9.0-12.0) sec INR 1.8 H (<1.2) Carbon Dioxide 18.7 L (20.0-27.5) mmol/L Calcium 8.5 L (8.7-10.3) mg/dL
[2021-09-10 09:30] LABS: Chol/HDL Ratio 3.15 Ratio; VLDL Calculation 13.34 mg/dL (5.00-40.00)
--- NOTE | 2021-09-10 10:23 | CT ---
EXAMINATION TYPE: CT brain wo con DATE OF EXAM: 09/10/2021 COMPARISON: CT dated 09/08/2021 HISTORY: Left sided weakness. CT DLP: 1103.7 mGycm Automated exposure control for dose reduction was used. TECHNIQUE: CT scan of the brain is performed without IV contrast administration. FINDINGS: Evolving acute to subacute infarct is seen in the right frontal convexity extending inferiorly to the right sylvian fissure, more apparent compared to the previous CT scan. This is in the right MCA terr itory. Extensive bilateral cerebral white matter hypodensities likely representing chronic microvascu lar ischemic changes. Brain volume loss changes, likely age-related. Bilateral cerebellar small chronic infarcts. Scattered arterial atherosclerotic calcifications most evident involving the cavernous portions of the interna l carotid arteries. No acute intracranial hemorrhage. No midline shift or herniation. Unremarkable basal cisterns, sella and CP angles. No gross intracranial space-occupying lesion. Unremarkable orbits. Clear visualized pa ranasal sinuses and mastoid air cells. No aggressive bone lesion. IMPRESSION: Evolving right MCA territory acute to subacute infarct as described above, please correlate clinicall y. Other incidental findings as described above.
[2021-09-10] MEDS: ISOSORBIDE MONONITRATE ER 30 MG TAB.ER.24H PO SCH (10:40)
[2021-09-10] MEDS: LOSARTAN 25 MG TAB PO SCH ×2 (10:40→20:02)
[2021-09-10] MEDS: METOPROLOL TARTRATE 50 MG TAB PO SCH ×2 (10:40→20:02)
[2021-09-10] MEDS: ATORVASTATIN 10 MG TAB PO SCH (10:40)
[2021-09-10] MEDS: amLODIPine 2.5 MG TAB PO SCH ×2 (10:40→20:02)
[2021-09-10] MEDS: ACETAMINOPHEN TAB 325 MG TAB PO PRN ×2 (10:45→20:03)
[2021-09-10] MEDS: SODIUM CHLORIDE 0.9% 1,000 ML IV SCH (12:57)
--- NOTE | 2021-09-10 14:05 | FL ---
EXAMINATION TYPE: FL barium swallow w video DATE OF EXAM: 09/10/2021 COMPARISON: NONE HISTORY: Difficulty swallowing, cough. The patient was evaluated in the lateral projection during real-time fluoroscopy, during ingestion of barium mixed with solids and liquids. No aspiration or laryngeal penetration. [facility] 3.27 minutes of fluoroscopy time, no images obtained
--- NOTE | 2021-09-10 14:31 | P.PN ---
Subjective Progress Note Date: 09/10/21 I am seeing the patient for the first time during this admission for neurological management. Please refer to Dr. Calle's notes for further details. The patient is accompanied by her son and states she is doing better compared to initial presentation but not back to baseline. Objective - Vital Signs Vital signs: Vital Signs Temp 97.5 F L 09/10/21 13:30 Pulse 71 09/10/21 13:30 Resp 18 09/10/21 13:30 BP 109/67 09/10/21 13:30 Pulse Ox 94 L 09/10/21 13:30 Intake & Output 09/09/21 09/10/21 09/10/21 18:59 06:59 18:59 Intake Total 1700 590 Output Total 350 300 Balance 1350 290 Intake: Intake, IV Titration 950 Amount Sodium Chloride 0.9% 1, 900 000 ml @ 75 mls/hr IV . [id number] KASHIF Rx#:[id number] cefTRIAXone 1 gm In 50 Sodium Chloride 0.9% 50 ml @ 100 mls/hr IVPB Q24H KASHIF Rx#:[id number] Oral 750 590 Output: Urine 350 300 Other: Voiding Method Bedside Commode Bedside Commode Bedside Commode # Voids 3 # Bowel Movements 1 - Exam GENERAL: The patient is lying in bed and is not in acute distress. NEUROLOGICAL: Higher mental function: The patient is awake, alert, oriented to self and place. She correctly stated the month but stated the year is 1921 but on second try she correctly stated the year with some help. She is slow to respond. She is following simple commands. No aphasia and no neglect. Cranial nerves: Visual chowdary is hard to assess because of her cooperation. The facial strength is mild left facial weakness. Tongue is midline and moved [id number] without any difficulty. No dysarthria is noted. Motor: The strength is left upper and lower is 4. Otherwise 5 over 5 throughout right. Normal tone and bulk. Sensation: Sensation is normal to touch throughout. 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 CT head revealed subacute hypodensity involving the right frontal region. Mechanism of stroke likely from cardioembolism from atrial fibrillation. Patient's INR was slightly subtherapeutic 1.7. * Atrial fibrillation * Hypertension * Pacemaker * History of kyphoplasty. Plan: * Repeat CT head w/o on 09/10/21: Evolving right MCA territory acute the subacute infarct. * Carotid Doppler ordered, which revealed antegrade flow in the vertebral arteries. There is less than 20% stenosis in both ICA. * Pending 2D echo. * Hemoglobin A1c is 6.0 * Lipid panel is a triglyceride 66, cholesterol is 166 LDL of 100, HDL of 52. * Currently the patient is on Coumadin and recommend INR to be between 2-3. The patient and her son were notified because of the acute stroke there is a risk of a bleed especially with anticoagulation. Patient and her son wanted to pursue with the Coumadin and not to hold that for now to avoid further acute ischemic stroke and the the understand the risk of a bleed. In addition she is also on aspirin 81 mg daily. From a neurological perspective aspirin is not needed since she did not failed the Coumadin but the INR was subtherapeutic on presentation. If the patient has a hard time monitoring her INR I would recommend Eliquis instead of coumadin and this was notified to patient and her son. He is currently on Lipitor 10 mg daily. * Pending vitamin B12 and folate level ordered by Dr. Calle. * PT, OT and [employer]ROLE[employer] G[employer]TER are consulted * Placed on Q4 hour neuro checks * Placed on cardiac monitoring. * We'll defer the rest of the medical management to primary team * For DVT prophylaxis the patient is on Coumadin * Upon discharge recommend the patient to follow-up with a neurologist as an outpatient within 1-2 weeks. The plan was discussed with the patient and her son was at bedside Zechariah Gould M.D. Neuro-hospitalist Time with Patient: Less than 30
[2021-09-10] MEDS: ASPIRIN 81 MG PO SCH (16:24)
[2021-09-10] MEDS ORDERED: WARFARIN 2 MG TAB PO ONE (18:00)
[2021-09-11] MEDS: SODIUM CHLORIDE 0.9% 1,000 ML IV SCH ×2 (00:15→12:55)
[2021-09-11] MEDS: ACETAMINOPHEN TAB 325 MG TAB PO PRN ×2 (03:13→13:13)
[2021-09-11 06:28] LABS: INR 2.6 (<1.2); Prothrombin Time 25.5 sec (9.0-12.0)
[2021-09-11] MEDS: METOPROLOL TARTRATE 50 MG TAB PO SCH ×2 (09:08→20:14)
[2021-09-11] MEDS: LOSARTAN 25 MG TAB PO SCH ×2 (09:08→20:14)
[2021-09-11] MEDS: amLODIPine 2.5 MG TAB PO SCH ×2 (09:08→20:14)
[2021-09-11] MEDS: ASPIRIN 81 MG PO SCH (09:08)
[2021-09-11] MEDS: ISOSORBIDE MONONITRATE ER 30 MG TAB.ER.24H PO SCH (09:08)
[2021-09-11] MEDS: ATORVASTATIN 10 MG TAB PO SCH (09:08)
--- NOTE | 2021-09-11 15:16 | P.PN ---
Subjective Progress Note Date: 09/11/21 Hospital course: Patient is a very pleasant 89-year-old female with a past medical history of atrial fibrillation on Coumadin, hypertension, and hyperlipidemia. She presented to the emergency department on 09/08/21 with a chief complaint of confusion. Her family reported the patient is normally independent of all of her activities of daily living and suddenly stopped answering phone calls and when neighbors went to check on her and they found her to be very confused. Family reports last known normal was 24 hours prior when he had lunch with her. Upon arrival to the emergency department patient was found to be alert and oriented 2. She underwent a CT of her brain which revealed cerebral atrophy and chronic small vessel ischemia. Carotid Dopplers revealed antegrade flow in vertebral arteries with less than 20% stenosis in both internal carotid arteries. EKG positive for atrial fibrillation with a controlled ventricular rate at 74 bpm. Patient was admitted under our services with consultation to neurology. She underwent a repeat CT which revealed evolving right MCA territory acute to subacute infarct. Lipid profile unremarkable. Echocardiogram completed and results pending. PT/OT/speech and language pathology also following. Patient underwent video fluoroscopic swallow evaluation which was negative showing no aspiration or laryngeal penetration. Plan is for discharge to [facility]. Patient's son to bedside and requesting his mother's medications be changed. Discussed with patient and her son at bedside and will change oral anticoagulant Coumadin to Xarelto per their request. Arrangements have been made for patient to be transferred to [facility] for continued therapy. Plan is for discharge tomorrow morning. Physical exam: Pt seen and fully evaluated at the bedside this morning and again this afternoon. Patient reports intermittent pain left lateral leg in which she states Tylenol is controlling. She denies having any headache, lightheadedness, dizziness, chest pain, palpitations, shortness of breath, or experiencing any numbness/tingling/weakness in her extremities. Had long discussion with patient and her son. Medication changes were made as oral anticoagulant Coumadin was discharged and patient started on Xarelto per patient and her son's request. Plan is for patient to be discharged to [facility] tomorrow morning for continued r ehab. Vital signs reviewed and stable. General: Nontoxic, no distress and appears stated age. Derm: Skin warm and dry, normal coloration for ethnicity. Head: Atraumatic, normocephalic, slight left-sided facial droop Eyes: Pupils equal, round, and reactive. no lid lag, and anicteric sclera. EOM s intact, however patient appears to have loss of/decrease in left peripheral vision. Mouth: no lip lesions, mucus membranes moist Cardiovascular: Irregularly irregular, systolic murmur, positive posterior tibial pulses bilaterally, and cap refill < 2 seconds. Lungs: Respirations even, regular, and unlabored on room air. Lungs CTA bilaterally, no rhonchi, no rales, no wheezing, and no accessory muscle usage. Abdominal: soft, nontender to palpation, no guarding, no appreciable organomegaly Ext: ROM intact. No gross muscle atrophy, no edema, no contractures Neuro: Speech clear, face symmetrical and CN II-XII grossly intact with no noted focal neuro deficits at this time Psych: Alert and oriented to person, place, and situation confused to time. Appropriate and pleasant affect. 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 Has history of cataracts with laser eye surgery/removal of cataract -Echocardiogram completed and pending results -Coumadin discontinued per patient and family's request patient placed on oral anticoagulation with Xarelto -PT/OT following, recommending SNF placement on discharge. -Speech and language pathologist following, patient underwent video fluoroscopic swallow evaluation which was negative showing no aspiration or laryngeal penetration. -Neuro checks -Fall precautions -Daily aspirin and atorvastatin Chronic persistent Atrial fibrillation with subtherapeutic INR -Coumadin discontinued per patient and family's request patient placed on oral anticoagulation with Xarelto. Hypertension -Monitor vital signs and continue daily medication regimen with amlodipine 2.5 mg twice daily and metoprolol 100 mg twice daily Hyperlipidemia -Continue daily medication regimen with atorvastatin 10 mg daily. -Lipid profile unremarkable. CODE STATUS: No code DVT prophylaxis: Coumadin Discussed with: Patient and RN Anticipated discharge date: Tomorrow morning Anticipated discharge place: [facility] A total of 42 minutes was spent on the care of this complex patient more than 50% of the time was spent in counseling and care coordination. I reviewed the documentation as provided by the JACKY above, who is the original author of this note. I agree with the documented assessment and plan, with the following changes: None Objective - Vital Signs Vital signs: Vital Signs Temp 97.5 F L 09/11/21 11:59 Pulse 74 09/11/21 11:59 Resp 16 09/11/21 11:59 BP 136/72 09/11/21 11:59 Pulse Ox 96 09/11/21 11:59 Intake & Output 09/10/21 09/11/21 09/11/21 18:59 06:59 18:59 Intake Total 900 1550 Balance 900 1550 Intake: Intake, IV Titration 900 950 Amount Sodium Chloride 0.9% 1, 900 900 000 ml @ 75 mls/hr IV . [id number] KASH[facility] Rx#:[id number] cefTRIAXone 1 gm In 50 Sodium Chloride 0.9% 50 ml @ 100 mls/hr IVPB Q24H [facility] Rx#:[id number] Oral 600 Other: Voiding Method Bedside Commode Bedside Commode Toilet # Voids 2 # Bowel Movements 1 - Labs CBC & Chem 7: 09/09/21 07:39 09/09/21 07:39 Labs: Abnormal Lab Results - Last 24 Hours (Table) 09/11/21 Range/Units 05:54 PT 25.5 H (9.0-12.0) sec INR 2.6 H (<1.2)
--- NOTE | 2021-09-11 15:52 | P.PN ---
Subjective Progress Note Date: 09/11/21 The patient is seen at bedside and states she is doing better. She is accompanied by her two son's and agree she is making improvement compared to initial presentation. Objective - Vital Signs Vital signs: Vital Signs Temp 97.5 F L 09/11/21 11:59 Pulse 74 09/11/21 11:59 Resp 16 09/11/21 11:59 BP 136/72 09/11/21 11:59 Pulse Ox 96 09/11/21 11:59 Intake & Output 09/10/21 09/11/21 09/11/21 18:59 06:59 18:59 Intake Total 900 1550 Balance 900 1550 Intake: Intake, IV Titration 900 950 Amount Sodium Chloride 0.9% 1, 900 900 000 ml @ 75 mls/hr IV . [id number] [facility] Rx#:[id number] cefTRIAXone 1 gm In 50 Sodium Chloride 0.9% 50 ml @ 100 mls/hr IVPB Q24H [facility] Rx#:[id number] Oral 600 Other: Voiding Method Bedside Commode Bedside Commode Toilet # Voids 2 # Bowel Movements 1 - Exam GENERAL: The patient is lying in bed and is not in acute distress. NEUROLOGICAL: Higher mental function: The patient is awake, alert, oriented to self, place and time. She is mildly slow in responding. She is following simple commands. No aphasia and no neglect. Cranial nerves: Visual chowdary is hard to assess since patient kept on tracking with eyes but felt ?left homonymous hemianopsia and at times full to confrontation. EOM intact and no nystagmus noted. The facial strength is m ild left facial weakness. Tongue is midline and moved [id number] without any difficulty. No dysarthria is noted. Motor: The strength is left upper and lower is 5-.. Otherwise 5 over 5 throughout right. Normal tone and bulk. Sensation: Sensation is normal to touch throughout. - Labs CBC & Chem 7: 09/09/21 07:39 09/09/21 07:39 Labs: Abnormal Lab Results - Last 24 Hours (Table) 09/11/21 Range/Units 05:54 PT 25.5 H (9.0-12.0) sec INR 2.6 H (<1.2) Assessment and Plan Assessment: * Acute ischemic stroke (Right MCA) with left homonymous hemianopia, mild left facial weakness---improving. Mechanism of stroke likely from cardioembolism from atrial fibrillation. Patient's INR was slightly subtherapeutic 1.7. * Atrial fibrillation on Coumadin * Hypertension * Pacemaker * History of kyphoplasty. Plan: * Repeat CT head w/o on 09/10/21: Evolving right MCA territory acute the subacute infarct. * Carotid Doppler ordered, which revealed antegrade flow in the vertebral arteries. There is less than 20% stenosis in both ICA. * Pending 2D echo report. * Hemoglobin A1c is 6.0 * Lipid panel is a triglyceride 66, cholesterol is 166 LDL of 100, HDL of 52. * Currently the patient is on Coumadin and recommend INR to be between 2-3. The patient wants to continue Coumadin and does not want to change to other anticoagulant (such as Eliquis, Xarelto etc). She continues to be on her home dose of ASA 81mg daily. Will defer use ASA to her PCP and professional bass fisherman as outpatient. She is currently on Lipitor 10 mg daily. * Vitamin B12: 608 and folate level: >20. * PT, OT and ADOPTION COUNSELOR are consulted * Continue on Q4 hour neuro checks * Placed on cardiac monitoring. * We'll defer the rest of the medical management to primary team * For DVT prophylaxis the patient is on Coumadin * Upon discharge recommend the patient to follow-up with a neurologist as an outpatient within 1-2 weeks. The plan was discussed with the patient and her two son's are at bedside. Otherwise no further neurological work-up. Zechariah Gould M.D. Neuro-hospitalist Time with Patient: Less than 30
[2021-09-11] MEDS ORDERED: RIVAROXABAN 20 MG TAB PO SCH (17:30)
[2021-09-11] MEDS ORDERED: WARFARIN 3 MG TAB PO ONE (18:00)
[2021-09-12 01:05] VITALS: RESP 20
[2021-09-12] MEDS: SODIUM CHLORIDE 0.9% 1,000 ML IV SCH (01:37)
[2021-09-12 05:28] VITALS: TEMP 97.9
[2021-09-12 06:42] LABS: INR 3.7 (<1.2); Prothrombin Time 36.7 sec (9.0-12.0)
--- NOTE | 2021-09-12 08:38 | P.DS ---
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 Hypertension, Monitor vital signs and continue daily medication regimen with amlodipine 2.5 mg twice daily and metoprolol 100 mg twice daily Hyperlipidemia, Lipid profile was unremarkable recommend continued daily medication regimen with atorvastatin 10 mg daily. Hospital Course: Patient is a very pleasant 89-year-old female with a past medical history of atrial fibrillation on Coumadin, hypertension, and hyperlipidemia. She presented to the emergency department on 09/08/21 with a chief complaint of confusion. Her family reported the patient is normally independent of all of her activities of daily living and suddenly stopped answering phone calls and when neighbors went to check on her and they found her to be very confused. Family reports last known normal was 24 hours prior when he had lunch with her. Upon arrival to the emergency department patient was found to be alert and oriented 2. She underwent a CT of her brain which revealed cerebral atrophy and chronic small vessel ischemia. Carotid Dopplers revealed antegrade flow in vertebral arteries with less than 20% stenosis in both internal carotid arteries. EKG positive for atrial fibrillation with a controlled ventricular rate at 74 bpm. Patient was admitted under our services with consultation to neurology. She underwent a repeat CT which revealed evolving right MCA territory acute to subacute infarct. Lipid profile unremarkable. Echocardiogram completed and results pending. PT/OT/speech and language pathology also following. Patient underwent video fluoroscopic swallow evaluation which was negative showing no aspiration or laryngeal penetration. Plan is for discharge to [facility]. Patient's son to bedside and requesting his mother's medications be changed. Discussed with patient and her son at bedside and per the request, Coumadin discontinued and patient placed on oral anticoagulation with Xarelto Arrangements have been made for patient to be transferred to [facility] for continued therapy and rehabilitation. Patient medically stable for discharge and to follow up in the office with Dr. Darling, ophthalmology for further evaluation of her vision, Dr. Cho, neurologist and Dr. Mack body finisher as discussed with both patient and her son. Physical exam: Patient seen and fully evaluated at bedside this morning. Patient doing well this morning. She denied having any headache, lightheadedness, dizziness, chest pain, palpitations, shortness of breath, or any other complaints. Patient again educated that she no longer needs to avoid eating cream she vegetables or salads that she is no longer taking Coumadin. Arrangements have been made by patient's son and case management for rehabilitation facility. Patient medically stable for discharge to rehab at this time. Vital signs reviewed and stable. General: Nontoxic, no distress and appears stated age. Derm: Skin warm and dry, normal coloration for ethnicity. Head: Atraumatic, normocephalic, slight left-sided facial droop Eyes: Pupils equal, round, and reactive. no lid lag, and anicteric sclera. EOMs intact, however patient appears to have loss of/decrease in left peripheral vision. Mouth: no lip lesions, mucus membranes moist Cardiovascular: Irregularly irregular, systolic murmur, positive posterior tibial pulses bilaterally, and cap refill < 2 seconds. Lungs: Respirations even, regular, and unlabored on room air. Lungs CTA bilaterally, no rhonchi, no rales, no wheezing, and no accessory muscle usage. Abdominal: soft, nontender to palpation, no guarding, no appreciable organomegaly Ext: ROM intact. No gross muscle atrophy, no edema, no contractures Neuro: Speech clear, face symmetrical and CN II-XII grossly intact with no noted focal neuro deficits at this time Psych: Alert and oriented to person, place, and situation confused to time. Appropriate and pleasant affect. A total of 40 minutes of time were spent preparing this complex discharge summary. I reviewed the documentation as provided by the JACKY above, who is the original author of this note. I agree with the documented assessment and plan, with the following changes: none Patient Condition at Discharge: Stable Plan - Discharge Summary Discharge Rx Participant: No New Discharge Prescriptions: New Aspirin 81 mg PO DAILY Rivaroxaban [Xarelto] 20 mg PO DAILY 30 Days #30 tab Acetaminophen Tab [Tylenol] 650 mg PO Q6HR PRN tab PRN Reason: Mild Pain Or Fever > 100.5 Continue Lovastatin [Mevacor] 10 mg PO DAILY Isosorbide Mononitrate ER [Imdur] 30 mg PO DAILY Metoprolol Tartrate [Lopressor] 100 mg PO BID #20 tab amLODIPine [Norvasc] 2.5 mg PO BID Losartan [Cozaar] 25 mg PO BID Nystatin 100,000Unit/gm Cream [Mycostatin Cream] 1 applic TOPICAL BID PRN PRN Reason: Skin Irritation Discontinued Warfarin Sodium [Jantoven] 3 mg PO DAILY Discharge Medication List Isosorbide Mononitrate ER [Imdur] 30 mg PO DAILY 09/13/14 [History] Lovastatin [Mevacor] 10 mg PO DAILY 09/13/14 [History] Metoprolol Tartrate [Lopressor] 100 mg PO BID #20 tab 09/19/14 [Rx] amLODIPine [Norvasc] 2.5 mg PO BID 06/18/16 [History] Losartan [Cozaar] 25 mg PO BID 07/29/19 [History] Nystatin 100,000Unit/gm Cream [Mycostatin Cream] 1 applic TOPICAL BID PRN 09/08/21 [History] Rivaroxaban [Xarelto] 20 mg PO DAILY 30 Days #30 tab 09/11/21 [Rx] Acetaminophen Tab [Tylenol] 650 mg PO Q6HR PRN tab 09/12/21 [Rx] Aspirin 81 mg PO DAILY 09/12/21 [Rx] Follow up Appointment(s)/Referral(s): Lamberto Cho MD [REFERRING] - 1 Week Jn Darling MD [STAFF PHYSICIAN] - 1 Week (Will need follow-up with ophthalmology for eye exam to further evaluate loss of/decrease in left-sided peripheral vision) Cecily Maddox MD [Primary Care Provider] - 1-2 days Kalpesh Mack MD [STAFF PHYSICIAN] - 1 Week Activity/Diet/Wound Care/Special Instructions: Activity: As tolerated. Take breaks as needed. Diet: Heart healthy and carb consistent diet. Avoid salts, or foods with hidden salts such as canned or boxed foods and frozen dinners. Extra salt makes your heart work harder and traps the fluid in your body for longer. Special Instructions: Medication changes were made, please take all of your medications as directed and remember to keep all of your doctor's appointments and follow-up as needed. It is important to follow-up with Dr. Darling, ophthalmology for further evaluation of your eyesight. In addition to Dr. Darling you also need to follow up with Dr. Cho, neurologist and Dr. Mack body finisher as we discussed. Thank you for allowing us to participate in your care, it was truly a pleasure having you for our patient!!! Discharge Disposition: TRANSFER TO SNF/ECF
[2021-09-12] MEDS: LOSARTAN 25 MG TAB PO SCH (09:15)
[2021-09-12] MEDS: METOPROLOL TARTRATE 50 MG TAB PO SCH (09:15)
[2021-09-12] MEDS: amLODIPine 2.5 MG TAB PO SCH (09:15)
[2021-09-12] MEDS: ASPIRIN 81 MG PO SCH (09:15)
[2021-09-12] MEDS: ISOSORBIDE MONONITRATE ER 30 MG TAB.ER.24H PO SCH (09:15)
[2021-09-12] MEDS: ATORVASTATIN 10 MG TAB PO SCH (09:15)
[2021-09-12 09:17] VITALS: BP 160/83; PULSE 91
--- NOTE | 2021-09-12 10:05 | ECHOF ---
Referral Reason:Acute CVA MEASUREMENTS -------- HEIGHT: 160.0 cm WEIGHT: 68.0 kg BP: 154/91 RVIDd: 3.4 cm (< 3.3) IVSd: 1.1 cm (0.6 - 1.1) LVIDd: 4.1 cm (3.9 - 5.3) LVPWd: 1.2 cm (0.6 - 1.1) IVSs: 1.9 cm LVIDs: 3.0 cm LVPWs: 1.9 cm LA Diam: 3.8 cm (2.7 - 3.8) LAESV Index (A-L): 36.17 ml/m Ao Diam: 3.1 cm (2.0 - 3.7) AV Cusp: 2.3 cm (1.5 - 2.6) MV EXCURSION: 12.148 mm (> 18.000) MV EF SLOPE: 53 mm/s (70 - 150) EPSS: 1.2 cm AR PHT: 879 ms RAP: 5.00 mmHg RVSP: 28.65 mmHg FINDINGS -------- Paced rhythm. This was a technically adequate study. The left ventricular size is normal. There is borderline concentric left ventricular hypertrophy. Overall left ventricular systolic function is moderately impaired with, an EF between 35 - 40 %. The right ventricle is mildly enlarged. LA is moderately dilated 34-39 ml/m2 The right atrium is normal in size. There is mild aortic valve sclerosis. There is moderate aortic regurgitation. The mitral valve leaflets are mildly thickened. Moderate mitral regurgitation is present. Gocz-[id number] tricuspid regurgitation present. Right ventricular systolic pressure is normal at < 35 mmHg. Trace/mild (physiologic) pulmonic regurgitation. The aortic root size is normal. IVC Not well visulized. There is no pericardial effusion. CONCLUSIONS -------- 1. The left ventricular size is normal. 2. There is borderline concentric left ventricular hypertrophy. 3. Overall left ventricular systolic function is moderately impaired with, an EF between 35 - 40 %. 4. The right ventricle is mildly enlarged. 5. LA is moderately dilated 34-39 ml/m2 6. There is mild aortic valve sclerosis. 7. There is moderate aortic regurgitation. 8. The mitral valve leaflets are mildly thickened. 9. Moderate mitral regurgitation is present. 10. Hxeb-[id number] tricuspid regurgitation present. 11. Trace/mild (physiologic) pulmonic regurgitation. 12. There is no pericardial effusion. BILINGUAL PATIENT SUPPORT CASEWORKER: Yanique Lindo RDCS
--- NOTE | 2021-09-12 12:30 | P.PN ---
Subjective Progress Note Date: 09/12/21 The patient is seen at bedside and feels about the same. Denies of any new neurological symptoms. Objective - Vital Signs Vital signs: Vital Signs Temp 97.9 F 09/12/21 05:00 Pulse 91 09/12/21 09:16 Resp 20 09/12/21 05:00 BP 160/83 09/12/21 09:16 Pulse Ox 93 L 09/12/21 05:00 Intake & Output 09/11/21 09/12/21 09/12/21 18:59 06:59 18:59 Intake Total 50 100 Balance 50 100 Intake: Intake, IV Titration 50 Amount cefTRIAXone 1 gm In 50 Sodium Chloride 0.9% 50 ml @ 100 mls/hr IVPB Q24H [facility] Rx#:[id number] Oral 100 Other: Voiding Method Toilet Toilet # Voids 3 - Exam GENERAL: The patient is lying in bed and is not in acute distress. NEUROLOGICAL: Higher mental function: The patient is awake, alert, oriented to self, place and time. She is minimally slow in responding. She is following simple commands. No aphasia and no neglect. Cranial nerves: Visual chowdary is hard to assess since patient kept on tracking with eyes but felt ?left homonymous hemianopsia and at times full to confrontat ion. EOM intact and no nystagmus noted. The facial strength is minimal left facial weakness.No dysarthria is noted. Motor: The strength is left upper and lower is 5-.. Otherwise 5 over 5 thro ughout right. Normal tone and bulk. Sensation: Sensation is normal to touch throughout. - Labs CBC & Chem 7: 09/09/21 07:39 09/09/21 07:39 Labs: Abnormal Lab Results - Last 24 Hours (Table) 09/12/21 Range/Units 06:07 PT 36.7 H (9.0-12.0) sec INR 3.7 H (<1.2) Assessment and Plan Assessment: * Acute ischemic stroke (Right MCA) with left homonymous hemianopia, mild left facial weakness---improving. Mechanism of stroke likely from cardioembolism from atrial fibrillation. Patient's INR was slightly subtherapeutic 1.7. * Atrial fibrillation on Coumadin * Hypertension * Pacemaker * History of kyphoplasty. Plan: * Repeat CT head w/o on 09/10/21: Evolving right MCA territory acute the subacute infarct. * Carotid Doppler ordered, which revealed antegrade flow in the vertebral arteries. There is less than 20% stenosis in both ICA. * 2D Echo: As reported as borderline concentric left ventricular hypertrophy. Systolic function is mildly impaired with ejection fraction of 35-40%. Left atrium is moderately dilated. Moderate mitral regurgitation. * Hemoglobin A1c is 6.0 * Lipid panel is a triglyceride 66, cholesterol is 166 LDL of 100, HDL of 52. * Currently the patient is on Coumadin and recommend INR to be between 2-3. The patient wants to continue Coumadin and does not want to change to other anticoagulant (such as Eliquis, Xarelto etc). She continues to be on her home dose of ASA 81mg daily. Will defer use ASA to her PCP and gate agent as outpatient. She is currently on Lipitor 10 mg daily. * Vitamin B12: 608 and folate level: >20. * PT, OT and INSTALLER TECHNICIAN are consulted * Continue on Q4 hour neuro checks * Placed on cardiac monitoring. * We'll defer the rest of the medical management to primary team * For DVT prophylaxis the patient is on Coumadin * Upon discharge recommend the patient to follow-up with a neurologist as an outpatient within 1-2 weeks. The plan was discussed with the patient and her nurse. Otherwise no further neurological work-up. Patient is clear from neurological perspective. Zechariah Gould M.D. Neuro-hospitalist Time with Patient: Less than 30
== END 2021-09-12 11:10 | DRG 64 ==
LOC: EC 15:14 → 5NMEDONC 19:31 → OBSVTOIN 09-10 08:34
PROVIDERS: ADMIT Internal Medicine; ATTEND Internal Medicine
DX: I63.511 Cerebral infarction due to unspecified occlusion or stenosis of right middle cerebral artery (principal); G93.41 Metabolic encephalopathy; F05 Delirium due to known physiological condition; N39.0 Urinary tract infection, site not specified; I48.19 Other persistent atrial fibrillation; E78.5 Hyperlipidemia, unspecified; E86.0 Dehydration; H53.462 Homonymous bilateral field defects, left side; R29.810 Facial weakness; R79.1 Abnormal coagulation profile; I11.9 Hypertensive heart disease without heart failure; Z79.01 Long term (current) use of anticoagulants; Z79.82 Long term (current) use of aspirin; Z79.899 Other long term (current) drug therapy; Z82.49 Family history of ischemic heart disease and other diseases of the circulatory system; Z86.73 Personal history of transient ischemic attack (TIA), and cerebral infarction without residual deficits; Z87.440 Personal history of urinary (tract) infections; Z90.710 Acquired absence of both cervix and uterus; Z95.0 Presence of cardiac pacemaker; Z96.1 Presence of intraocular lens; Z98.41 Cataract extraction status, right eye; Z98.42 Cataract extraction status, left eye
CPT/HCPCS: 36415; 70450; 71046; 74230; 80048; 80053; 80061; 81001; 82607; 82746; 83036; 85025; 85027; 85610; 85730; 93005; 93306; 93880; 96361; 96374; 96375; 99285